=== PATIENT | male | born 1955 | race Two or more races ===

== ENCOUNTER 2018-01-28 00:26 | Inpatient (IN) | payer MEDICAID ==
[~2018-01-28] VITALS: Ht 180.3 cm; Wt 95.8 kg
[2018-01-28] VITALS (43 sets, daily range): BP systolic 96–185; BP diastolic 49–120
[2018-01-28] MEDS ORDERED: ALBUTEROL2.5 MG/3 M INH (00:29)
[2018-01-28] MEDS ORDERED: Terbutaline 1mg/ml Inj SUBQ ONE (00:45)
[2018-01-28] MEDS ORDERED: Solu-MEDROL 125mg Inj IVP ONE (00:45)
[2018-01-28] MEDS: Ipratropium 0.02% Inh Soln 2.5ml UD HHN SCH ×3 (00:57→01:36)
[2018-01-28] MEDS: Albuterol ud Inhalation HHN SCH ×5 (00:57→19:05)
[2018-01-28 01:10] LABS: HEMATOCRIT 45.5 % (42.0-52.0); HEMOGLOBIN 15.3 G/DL (14.2-18.0); MEAN CORPUSCULAR VOLUME 92 FL (80-99); PLATELET COUNT 327 K/UL (150-450); RED BLOOD COUNT 4.95 M/UL (4.70-6.10); RED CELL DISTRIBUTION WIDTH 12.5 % (11.6-14.8); WHITE BLOOD COUNT 15.4 K/UL (4.8-10.8)
[2018-01-28 01:16] LABS: ANION GAP 9 mmol/L (5-15); BLOOD UREA NITROGEN 20 mg/dL (7-18); CALCIUM 9.1 MG/DL (8.5-10.1); CARBON DIOXIDE 29 MMOL/L (21-32); CHLORIDE 106 MMOL/L (98-107); CREATININE 1.6 MG/DL (0.55-1.30); POTASSIUM 4.1 MMOL/L (3.5-5.1); SODIUM 143 MMOL/L (136-145)
[2018-01-28 01:29] LABS: ALANINE AMINOTRANSFERASE 68 U/L (12-78); ALBUMIN 4.6 G/DL (3.4-5.0); ALBUMIN/GLOBULIN RATIO 1.4 (1.0-2.7); ALKALINE PHOSPHATASE 97 U/L (46-116); ASPARTATE AMINO TRANSFERASE 75 U/L (15-37); BILIRUBIN,TOTAL 0.6 MG/DL (0.2-1.0); CKMB 6.1 NG/ML (0.0-3.6); CREATINE KINASE 529 U/L (26-308)
[2018-01-28] MEDS ORDERED: LORazepam 20 MG in NS 90 ML IV ONE (01:43)
[2018-01-28 01:46] LABS: BILIRUBIN, URINE NEGATIVE (NEGATIVE); COLOR,URINE PALE YELLOW; GLUCOSE, URINE (UA) 1+ (NEGATIVE); KETONES,URINE 1+ (NEGATIVE); LEUKOCYTE ESTERASE ,URINE 1+ (NEGATIVE); NITRITE,URINE NEGATIVE (NEGATIVE); PH,URINE 5 (4.5-8.0); PROTEIN,URINE 4+ (NEGATIVE); UROBILINOGEN,URINE 1 MG/DL (0.0-1.0)
[2018-01-28 01:54] LABS: APPEARANCE,URINE CLOUDY
[2018-01-28] MEDS ORDERED: Piperacillin/Tazobactam 3.375 GM in NS 110 ML IVPB ONE (02:15)
[2018-01-28] MEDS ORDERED: Azithromycin 500 MG in NS 275 ML IV ONE (02:15)
[2018-01-28] MEDS ORDERED: NS 1000ml 3,300 ML IVLG ONE (02:15)
[2018-01-28] MEDS ORDERED: Propofol 200mg/20ml IV ONE ×2 (02:45→06:18)
[2018-01-28] MEDS ORDERED: Terbutaline 1mg/ml Inj ONE (04:00)
--- NOTE | 2018-01-28 04:59 | Emergency Room Report ---
History of Present Illness General Chief Complaint: Dyspnea/Respdistress Source: EMS Present Illness HPI 62-year-old male presents to ED for evaluation. Per EMS patient in respiratory distress. Found at home. Cold and clammy. Apneic. O2 sats low. Improved with bagging. Possible aspiration. states patient has history of asthma and was "not feeling well today". EMS states patient did have pulses. Upon arrival patient unresponsive. Face is red. Very reduced breath sounds. No reported chest pain. No reported fevers or chills. No other aggravating relieving factors. No other associated symptoms Allergies: Coded Allergies: No Known Allergies (Unverified , 01/28/18) Patient History Past Medical History: asthma Past Surgical History: none Pertinent Family History: none Social History: Denies: smoking, alcohol use, drug use Immunizations: UTD Reviewed Nursing Documentation: PMH: Agreed; PSxH: Agreed Nursing Documentation-PM Past Medical History: No History, Except For Hx Asthma: Yes Review of Systems All Other Systems: limited Physical Exam Vital Signs Date Time Temp Pulse Resp B/P (MAP) Pulse Ox O2 Delivery O2 Flow Rate FiO2 01/28/18 00:26 116 24 181/113 100 Ambu-Bag 01/28/18 00:57 100 01/28/18 02:15 97.9 97.9 Sp02 EP Interpretation: reviewed, normal General Appearance: lethargic, obese, other - apneic Head: normocephalic Eyes: bilateral eye normal inspection, bilateral eye PERRL ENT: normal ENT inspection Neck: normal inspection Respiratory: decreased breath sounds, wheezing Cardiovascular #1: no edema, tachycardia Gastrointestinal: normal bowel sounds, non tender, soft, non-distended, no guarding, no rebound Rectal: deferred Genitourinary: no CVA tenderness Musculoskeletal: normal inspection Neurologic: other - unresponsive Psychiatric: other - unresponsive Skin: normal inspection Lymphatic: normal inspection Procedures Critical Care Time Critical Care Time i. I feel this is a highly complex case requiring extensive working including EKG/Rhythm strip, Xray/CT/US, Blood/urine lab work, repeat exams while in ED, and administration of strong opiates/narcotics for pain control, admission to hospital or close patient follow up. Total time: 30 min bedside evaluation and treatment excludes procedures (EKG). Reason for critical care: Respiratory distress, unresponsive. Possible complications: hypotension, hypertension, SD, shock, arrhythmias, metabolic acidosis, end organ damage, respiratory failure. Interventions: Intubation, labs, EKG, chest x-ray, IV fluids, ABG, antibiotics, sedation Course: Patient presenting in respiratory distress. GCS 3. Apneic. Patient intubated immediately on arrival. Very difficult bagging. Evidence of undigested food and oropharynx. NG tube placed. Deep suctioning provided. ABG shows significant hypercapnia. Significant acidosis and sepsis. Concerning for aspiration. Nebulizer treatments given. Broad-spectrum antibiotic given. Propofol given for sedation Consultations: nursing staff, EMS, family Performed by: Dr Barnes Tolerated well condition = critical j. because of unstable vital signs this patient had a condition that could potentially threaten life or limb. I feel this is a critical patient who required my full attention while patient was considered critical. Total Critical Care Time excluding procedures was greater than 35 minutes Medical Decision Making Diagnostic Impression: Primary Impression: Respiratory distress Additional Impressions: Hypercapnia Severe sepsis ER Course Hospital Course 62-year-old M presenting to ED with respiratory distress, apneic, lethargic Differential diagnoses include: Pneumonia, CHF exacerbation, pneumothorax, fluid overload Clinical course Patient placed on stretcher. On clinical research monitor. Per patient's respiratory status and GCS patient immediately intubated. During bagging very reduced breath sounds noted. Patient wheezing. I did observe undigested food and oropharynx. NG tube placed. Deep suctioning provided. Placed on ventilator. Nebulizer treatments started I ordered labs, IV fluids, EKG, chest x-ray, blood cultures, UA. Labs -leukocytosis noted, hemoglobin/hematocrit stable, electrolyte okay, lactate >4. troponins negative CXR - atelectasis/effusion LLL ABG shows significant hypercapnia. possible head injury - patient found down. CT head shows no acute process Broad-spectrum antibiotics given. Started on propofol drip for sedation. Case discussed with . Told of critical diagnosis Case discussed with Dr. Joe and he agreed to the patient to his service for further care and support I feel this is a highly complex case requiring extensive working including EKG/ Rhythm strip, Xray/CT/US, Blood/urine lab work, repeat exams while in ED, and administration of strong opiates/narcotics for pain control, admission to hospital or close patient follow up. Diagnosis - respiratory distress, hypercapnia, severe sepsis Patient admitted to ICU in critical condition Labs Test 01/28/18 00:25 01/28/18 00:33 01/28/18 01:28 01/28/18 03:33 Urine Color Pale yellow Urine Appearance Cloudy Urine pH 5 (4.5-8.0) Urine Specific [place] 1.025 (1.005-1.035) Urine Protein 4+ (NEGATIVE) Urine Glucose (UA) 1+ (NEGATIVE) Urine Ketones 1+ (NEGATIVE) Urine Occult Blood 5+ (NEGATIVE) Urine Nitrite Negative (NEGATIVE) Urine Bilirubin Negative (NEGATIVE) Urine Urobilinogen 1 MG/DL (0.0-1.0) Urine Leukocyte Esterase 1+ (NEGATIVE) Urine RBC 15-20 /HPF (0 - 0) Urine WBC 2-4 /HPF (0 - 0) Urine Squamous Epithelial Cells Few /LPF (NONE/OCC) Urine Amorphous Sediment Many /LPF (NONE) Urine Bacteria Many /HPF (NONE) Urine Coarse Granular Casts 5-10 /LPF (NONE) White Blood Count 15.4 K/UL (4.8-10.8) Red Blood Count 4.95 M/UL (4.70-6.10) Hemoglobin 15.3 G/DL (14.2-18.0) Hematocrit 45.5 % (42.0-52.0) Mean Corpuscular Volume 92 FL (80-99) Mean Corpuscular Hemoglobin 31.0 PG (27.0-31.0) Mean Corpuscular Hemoglobin Concent 33.7 G/DL (32.0-36.0) Red Cell Distribution Width 12.5 % (11.6-14.8) Platelet Count 327 K/UL (150-450) Mean Platelet Volume 7.2 FL (6.5-10.1) Neutrophils (%) (Auto) % (45.0-75.0) Lymphocytes (%) (Auto) % (20.0-45.0) Monocytes (%) (Auto) % (1.0-10.0) Eosinophils (%) (Auto) % (0.0-3.0) Basophils (%) (Auto) % (0.0-2.0) Sodium Level 143 MMOL/L (136-145) Potassium Level 4.1 MMOL/L (3.5-5.1) Chloride Level 106 MMOL/L (98-107) Carbon Dioxide Level 29 MMOL/L (21-32) Anion Gap 9 mmol/L (5-15) Blood Urea Nitrogen 20 mg/dL (7-18) Creatinine 1.6 MG/DL (0.55-1.30) Estimat Glomerular Filtration Rate 44.0 mL/min (>60) Glucose Level 196 MG/DL (74-106) Lactic Acid Level 4.60 mmol/L (0.66-2.22) 1.30 mmol/L (0.66-2.22) Calcium Level 9.1 MG/DL (8.5-10.1) Total Bilirubin 0.6 MG/DL (0.2-1.0) Aspartate Amino Transf (AST/SGOT) 75 U/L (15-37) Alanine Aminotransferase (ALT/SGPT) 68 U/L (12-78) Alkaline Phosphatase 97 U/L (46-116) Total Creatine Kinase 529 U/L (26-308) Creatine Kinase MB 6.1 NG/ML (0.0-3.6) Creatine Kinase MB Relative Index 1.1 Troponin I 0.000 ng/mL (0.000-0.056) Pro-B-Type Natriuretic Peptide 25 pg/mL (0-125) Total Protein 7.8 G/DL (6.4-8.2) Albumin 4.6 G/DL (3.4-5.0) Globulin 3.2 g/dL Albumin/Globulin Ratio 1.4 (1.0-2.7) Triglycerides Level 246 MG/DL (30-150) Arterial Blood pH 7.132 (7.350-7.450) Arterial Blood Partial Pressure CO2 81.4 mmHg (35.0-45.0) Arterial Blood Partial Pressure O2 226.7 mmHg (75.0-100.0) Arterial Blood HCO3 26.6 mmol/L (22.0-26.0) Arterial Blood Oxygen Saturation 98.8 % (92.0-98.0) Arterial Blood Base Excess -4.8 Alin Test Positive EKG Diagnostic Results Rate: tachycardiac Rhythm: NSR ST Segments: no acute changes ASA given to the pt in ED: No Rhythm Strip Diag. Results EP Interpretation: yes Rhythm: NSR, no PVC's, no ectopy Chest X-Ray Diagnostic Results Chest X-Ray Diagnostic Results : Chest X-Ray Ordered: Yes # of Views/Limited/Complete: 1 View Indication: Shortness of Breath EP Interpretation: Yes Interpretation: no pneumothorax, no acute cardiopulmonary disease, other - effusion/consolidation LLL Impression: Other - ?aspiration Electronically Signed by: Electronically signed by Cristofer Barnes MD CT/MRI/US Diagnostic Results CT/MRI/US Diagnostic Results : Imaging Test Ordered: CT Head Impression no acute process Last Vital Signs Date Time Temp Pulse Resp B/P (MAP) Pulse Ox O2 Delivery O2 Flow Rate FiO2 01/28/18 03:13 20 01/28/18 03:09 113 80 01/28/18 02:30 97.8 120/59 100 Mechanical Ventilator 97.8 Status: unchanged Disposition: ADMITTED INPATIENT Condition: Critical Referrals: [facility],REFERRING (PCP) Cristofer Barnes MD Jan 28, 2018 04:59
[2018-01-28] MEDS ORDERED: Albuterol ud Inhalation HHN PRN (09:00)
--- NOTE | 2018-01-28 10:21 | Diagnostic Imaging Report ---
Indication: Shortness of breath, postintubation Technique: One view of the chest Comparison: none Findings: There is an endotracheal tube in place. The relationship to the darling is not well visualized, but grossly appears to be in good position. There is a retrocardiac consolidation. The remainder the lungs and pleural spaces are clear. Impression: Satisfactory endotracheal intubation Retrocardiac consolidation
--- NOTE | 2018-01-28 10:38 | Pulmonolgy Critical Care Note ---
Critical Care - Asmt/Plan Problems: (1) Acute respiratory failure (2) Acute encephalopathy (3) Acute asthma exacerbation Respiratory: monitor respiratory rate, adjust FIO2, CXR Cardiac: continue to monitor HR/BP Renal: F/U I&O, check electrolytes Gastrointestinal: continue feedings/current rate Endocrine: monitor blood sugar, continue sliding scale insulin Hematologic: monitor H/H, transfuse if hgb<8.5 Neurologic: PRN Ativan, PRN Morphine, keep patient comfortable Prophylaxis: Protonix, Heparin Disposition: keep in ICU Time Spent (Minutes): 40 Notes Reviewed: casting director Discussed with: nurses, consultants, insurance case managerassurance services manager health care - Objective Last 24 Hour Vital Signs Date Time Temp Pulse Resp B/P (MAP) Pulse Ox O2 Delivery O2 Flow Rate FiO2 01/28/18 10:00 94 17 127/67 100 Mechanical Ventilator 70 01/28/18 09:30 90 16 109/70 100 Mechanical Ventilator 70 01/28/18 09:19 91 17 70 01/28/18 09:00 95 16 112/69 99 Mechanical Ventilator 70 01/28/18 08:30 95 16 96/58 99 Mechanical Ventilator 70 01/28/18 08:00 122 01/28/18 08:00 99 16 128/66 100 Mechanical Ventilator 70 01/28/18 07:30 125 28 136/116 99 Mechanical Ventilator 70 01/28/18 07:18 94 24 70 01/28/18 07:15 98.2 102 21 123/90 100 Mechanical Ventilator 70 98.2 01/28/18 07:15 97.7 98 18 137/86 100 Mechanical Ventilator 70 98.3 01/28/18 06:34 70 01/28/18 06:30 18 137/86 01/28/18 06:25 98.3 98 18 137/86 100 Mechanical Ventilator 70 98.3 01/28/18 05:32 98.3 101 20 151/71 100 Mechanical Ventilator 70 98.3 01/28/18 05:30 17 142/92 01/28/18 04:40 112 24 70 01/28/18 04:30 18 122/69 01/28/18 04:30 97.7 108 20 122/69 100 Mechanical Ventilator 80 97.7 01/28/18 04:00 97.7 108 20 156/74 100 Mechanical Ventilator 80 97.7 01/28/18 03:30 97.9 110 19 135/68 100 Mechanical Ventilator 100 97.9 01/28/18 03:30 19 135/68 01/28/18 03:15 97.9 113 19 134/49 100 Mechanical Ventilator 100 97.9 01/28/18 03:13 20 01/28/18 03:09 113 20 80 01/28/18 03:00 97.9 117 18 119/83 100 Mechanical Ventilator 100 97.9 01/28/18 02:45 97.8 117 19 134/49 100 Mechanical Ventilator 100 97.8 01/28/18 02:30 97.8 112 20 120/59 100 Mechanical Ventilator 100 97.8 01/28/18 02:30 18 120/59 01/28/18 02:15 97.9 111 20 138/65 100 Mechanical Ventilator 100 97.9 01/28/18 02:15 18 138/65 01/28/18 02:00 112 20 120/59 100 Mechanical Ventilator 100 01/28/18 01:50 106 16 100 Mechanical Ventilator 100 01/28/18 01:43 20 01/28/18 01:37 113 16 100 Mechanical Ventilator 100 01/28/18 01:30 97.9 113 20 167/120 100 Mechanical Ventilator 100 97.9 01/28/18 01:25 110 16 100 Mechanical Ventilator 100 01/28/18 01:14 100 01/28/18 01:14 113 14 185/104 100 Mechanical Ventilator 100 01/28/18 01:13 106 16 100 Mechanical Ventilator 100 01/28/18 01:13 113 16 Mechanical Ventilator 100 01/28/18 01:12 109 16 100 Mechanical Ventilator 100 01/28/18 01:08 104 16 Mechanical Ventilator 100 01/28/18 01:05 104 16 100 01/28/18 00:57 105 16 100 Mechanical Ventilator 100 01/28/18 00:26 116 24 181/113 100 Ambu-Bag Status: sedated Condition: critical HEENT: atraumatic Lungs: clear, rhonchi, wheezing Heart: HR/BP stable Abdomen: soft Extremities: no C/C/E, edema Decubiti: stage Critical Care - Subjective ROS Limited/Unobtainable: No ICU Day: 1 Interval Events: 62-year-old male with hx of COPD, morbid presents to ED or respiratory distress at home, cold and clammy. Improved with bagging. Upon arrival in ER patient was unresponsive. Face is red. Very reduced breath sounds. Pt was in respiratory failure and was intubated and started on Propofol drip and transferred to ICU. Condition: critical EKG Rhythm: Sinus Rhythm FI02: 70 Vent Support Breath Rate: 16 Vent Support Mode: AC Vent Tidal Volume: 550 Sputum Amount: Small PEEP: 5.0 PIP: 38 I&O: Intake and Output 01/27/18 01/28/18 19:00 07:00 Intake Total 1630.64 ml Output Total 900 ml Balance 730.64 ml Intake IV Total 1630.64 ml Output Urine Total 700 ml Gastric Drainage Total 200 ml CXR: JERRELL ET-Tube: 7.5 ET Position: 24 Labs: Laboratory Tests Test 01/28/18 00:25 01/28/18 00:33 01/28/18 01:28 01/28/18 03:33 Urine Color Pale yellow Urine Appearance Cloudy Urine pH 5 (4.5-8.0) Urine Specific [place] 1.025 (1.005-1.035) Urine Protein 4+ (NEGATIVE) H Urine Glucose (UA) 1+ (NEGATIVE) H Urine Ketones 1+ (NEGATIVE) H Urine Occult Blood 5+ (NEGATIVE) H Urine Nitrite Negative (NEGATIVE) Urine Bilirubin Negative (NEGATIVE) Urine Urobilinogen 1 MG/DL (0.0-1.0) H Urine Leukocyte Esterase 1+ (NEGATIVE) H Urine RBC 15-20 /HPF (0 - 0) H Urine WBC 2-4 /HPF (0 - 0) Urine Squamous Epithelial Cells Few /LPF (NONE/OCC) Urine Amorphous Sediment Many /LPF (NONE) H Urine Bacteria Many /HPF (NONE) H Urine Coarse Granular Casts 5-10 /LPF (NONE) H Urine Opiates Screen Negative (NEGATIVE) Urine Barbiturates Screen Negative (NEGATIVE) Phencyclidine (PCP) Screen Negative (NEGATIVE) Urine Amphetamines Screen Negative (NEGATIVE) Urine Benzodiazepines Screen Negative (NEGATIVE) Urine Cocaine Screen Negative (NEGATIVE) Urine Marijuana (THC) Screen Negative (NEGATIVE) White Blood Count 15.4 K/UL (4.8-10.8) H Red Blood Count 4.95 M/UL (4.70-6.10) Hemoglobin 15.3 G/DL (14.2-18.0) Hematocrit 45.5 % (42.0-52.0) Mean Corpuscular Volume 92 FL (80-99) Mean Corpuscular Hemoglobin 31.0 PG (27.0-31.0) Mean Corpuscular Hemoglobin Concent 33.7 G/DL (32.0-36.0) Red Cell Distribution Width 12.5 % (11.6-14.8) Platelet Count 327 K/UL (150-450) Mean Platelet Volume 7.2 FL (6.5-10.1) Neutrophils (%) (Auto) % (45.0-75.0) Lymphocytes (%) (Auto) % (20.0-45.0) Monocytes (%) (Auto) % (1.0-10.0) Eosinophils (%) (Auto) % (0.0-3.0) Basophils (%) (Auto) % (0.0-2.0) Sodium Level 143 MMOL/L (136-145) Potassium Level 4.1 MMOL/L (3.5-5.1) Chloride Level 106 MMOL/L (98-107) Carbon Dioxide Level 29 MMOL/L (21-32) Anion Gap 9 mmol/L (5-15) Blood Urea Nitrogen 20 mg/dL (7-18) H Creatinine 1.6 MG/DL (0.55-1.30) H Estimat Glomerular Filtration Rate 44.0 mL/min (>60) Glucose Level 196 MG/DL (74-106) H Lactic Acid Level 4.60 mmol/L (0.66-2.22) H 1.30 mmol/L (0.66-2.22) Calcium Level 9.1 MG/DL (8.5-10.1) Total Bilirubin 0.6 MG/DL (0.2-1.0) Aspartate Amino Transf (AST/SGOT) 75 U/L (15-37) H Alanine Aminotransferase (ALT/SGPT) 68 U/L (12-78) Alkaline Phosphatase 97 U/L (46-116) Total Creatine Kinase 529 U/L (26-308) H Creatine Kinase MB 6.1 NG/ML (0.0-3.6) H Creatine Kinase MB Relative Index 1.1 Troponin I 0.000 ng/mL (0.000-0.056) Pro-B-Type Natriuretic Peptide 25 pg/mL (0-125) Total Protein 7.8 G/DL (6.4-8.2) Albumin 4.6 G/DL (3.4-5.0) Globulin 3.2 g/dL Albumin/Globulin Ratio 1.4 (1.0-2.7) Triglycerides Level 246 MG/DL (30-150) H Arterial Blood pH 7.132 (7.350-7.450) Arterial Blood Partial Pressure CO2 81.4 mmHg (35.0-45.0) *H Arterial Blood Partial Pressure O2 226.7 mmHg (75.0-100.0) H Arterial Blood HCO3 26.6 mmol/L (22.0-26.0) H Arterial Blood Oxygen Saturation 98.8 % (92.0-98.0) H Arterial Blood Base Excess -4.8 Alin Test Positive Test 01/28/18 09:35 Arterial Blood pH 7.298 (7.350-7.450) Arterial Blood Partial Pressure CO2 48.7 mmHg (35.0-45.0) H Arterial Blood Partial Pressure O2 143.5 mmHg (75.0-100.0) H Arterial Blood HCO3 23.3 mmol/L (22.0-26.0) Arterial Blood Oxygen Saturation 98.8 % (92.0-98.0) H Arterial Blood Base Excess -3.5 Alin Test Positive Ahsan Wu MD Jan 28, 2018 10:38
[2018-01-28] MEDS ORDERED: Albuterol/Ipratropium 3ml neb HHN PRN ×2 (11:00)
[2018-01-28] MEDS ORDERED: Morphine Sulfate 4mg/ml Inj IVP PRN (11:00)
[2018-01-28] MEDS ORDERED: Nitroglycerin Subl 0.4mg tab SL PRN (11:00)
--- NOTE | 2018-01-28 11:40 | Diagnostic Imaging Report ---
Indications: 6 altered mental status Technique: Spiral acquisitions obtained through the brain. Angled axial and coronal 5 x 5 mm slices were reconstructed. Total dose length product 1407.76 mGycm. CTDI vol(s) 70.38 mGy. Dose reduction achieved using automated exposure control Comparison: None. Findings: There is fairly severe image degradation due to motion artifact. Significant pathology could be obscured. No gross acute intracranial hemorrhage or edema. And definite mass effect or midline shift. Visualized orbits are grossly unremarkable. There is evidence of bilateral maxillary and ethmoid sinus mucosal disease The calvarium is grossly intact. Impression: . Limited exam due to motion artifact, significant pathology could be missed No gross acute intracranial bleed or mass effect The CT scanner at [facility] is accredited by the [employer] and the scans are performed using protocols designed to limit radiation exposure to as low as reasonably achievable to attain images of sufficient resolution adequate for diagnostic evaluation.
[2018-01-28] MEDS ORDERED: Etomidate 40mg/20ml Inj IV ONE (12:05)
[2018-01-28] MEDS ORDERED: Zemuron 50mg/5ml Inj IV ONE (12:05)
[2018-01-28] MEDS: Solu-MEDROL 125mg Inj IV SCH ×2 (12:25→17:31)
[2018-01-28] MEDS: LORazepam Inj 2mg/ml 1ml IV PRN ×2 (12:25→17:31)
[2018-01-28] MEDS: Piperacillin/Tazobactam 3.375 GM in D5W 110 ML IVPB SCH ×2 (12:26→21:03)
[2018-01-28] MEDS: D5 1/2NS 1,000 ML IV SCH (12:29)
[2018-01-28] MEDS: NovoLOG Insulin Flexpen SUBQ SCH ×3 (12:34→21:19)
[2018-01-28] MEDS ORDERED: Piperacillin/Tazobactam 2.25 GM in D5W 55 ML IV SCH (14:00)
--- NOTE | 2018-01-28 14:43 | Cardiology Report ---
APPROVED REPORT EKG Measurement Heart [id number] Sinus tachycardia with premature atrial complexes Otherwise normal ECG
--- NOTE | 2018-01-28 15:46 | Consultation ---
Consult Note Consult Note [id number] Mike Domingo MD Jan 28, 2018 15:46
--- NOTE | 2018-01-28 16:48 | History & Physical ---
History and Physical History & Physicial Dictated for Int Med-Dr Joe no. [id number]. APRIL HEATH Jan 28, 2018 16:48
--- NOTE | 2018-01-28 17:01 | Diagnostic Imaging Report ---
Indication: Post nasogastric tube placement Technique: Supine view of the upper abdomen Comparison: none Findings: There is a nasogastric tube in place, tip projected at the level of the gastric fundus, but the proximal port probably at the level of the gastroesophageal junction. The bowel gas pattern is grossly unremarkable. Infiltrates are seen at the left lung base. Impression: Slightly high position of nasogastric tube. Advancement recommended Evidence of left lower lobe pneumonia
[2018-01-28] MEDS: Midazolam/D5W 100ml 100 ML IVPB PRN ×2 (18:00→23:14)
[2018-01-28] MEDS: Heparin 5000 units/ml inj SUBQ SCH (21:18)
[2018-01-29] VITALS (47 sets, daily range): BP systolic 84–144; BP diastolic 46–102
[2018-01-29] MEDS: Solu-MEDROL 125mg Inj IV SCH ×4 (00:27→16:56)
[2018-01-29] MEDS: LORazepam Inj 2mg/ml 1ml IV PRN (00:31)
[2018-01-29] MEDS: Morphine Sulfate 4mg/ml Inj IVP PRN (01:10)
[2018-01-29] MEDS: Albuterol ud Inhalation HHN SCH ×4 (01:20→19:23)
--- NOTE | 2018-01-29 03:00 | History and Physical Report ---
DATE OF ADMISSION: 01/28/2018 CHIEF COMPLAINT: The patient is a 62-year-old male, presents with chief complaint of respiratory distress. HISTORY OF PRESENT ILLNESS: The patient is currently intubated in the intensive care unit. History and physical is obtained via telephone from the patient's , Julius. According to patient's , he had been having knee pain secondary to torn meniscus. The patient was taking Naprosyn for knee pain. The patient began to experience abdominal pain approximately two days previously. The patient had some on and off diarrhea. On 01/27/2018 in the evening, the patient went to the restroom. The patient was having trouble breathing. The patient's went to get his nebulizer machine. By the time the returned, the patient had fallen off of the toilet. The patient was unresponsive. EMS was called. The patient was intubated in the field. The patient was transferred to [place] emergency room. The patient is admitted with respiratory failure to rule out aspiration pneumonia. PAST MEDICAL HISTORY: Significant for asthma, status post intubation in 2014. PAST SURGICAL HISTORY: Denies. CURRENT MEDICATIONS: Albuterol nebulized q.4 h. p.r.n. ALLERGIES: No known drug allergies. SOCIAL HISTORY: The patient is . The patient denies tobacco use. The patient denies alcohol use. REVIEW OF SYSTEMS: Unable to assess, secondary to the patient's mental status. PHYSICAL EXAMINATION: GENERAL: The patient is a well-developed and well-nourished male, who is intubated and sedated. VITAL SIGNS: Temperature 98.3 degrees, respirations 20, pulse tachycardic at 101, and blood pressure 151/70. HEENT: Eyes, pupils are equal and responsive to light and accommodation. Extraocular movements are intact. NECK: Supple without lymphadenopathy. CHEST: Few scattered wheezes bilaterally. Otherwise, without wheezes or rales. CARDIOVASCULAR: Tachycardic, regular rhythm. S1 and S2 normal without murmurs, rubs, or gallops. ABDOMEN: Soft, nontender, nondistended. Positive bowel sounds. No evidence of hepatosplenomegaly. Currently, no rebound or guarding noted. EXTREMITIES: Negative for clubbing, cyanosis, or edema. NEUROLOGIC: Cranial nerves II through XII are grossly intact without focal deficits. LABORATORY AND DIAGNOSTIC STUDIES: WBC 15.4, hemoglobin 15.3, hematocrit 45.5 and platelets 327,000. Sodium 143, potassium 4.1, chloride 106, CO2 29, BUN 20, creatinine 1.6, and glucose 196. Lactic acid elevated at 4.6. Troponin negative at 0.0. Chest x-ray revealed a retrocardiac consolidation. A CT scan of the head was reported within normal limits. ASSESSMENT: This is a 62-year-old male 1. Respiratory failure. 2. Pneumonia. 3. Asthma. 4. Abdominal pain. TREATMENT: 1. Respiratory failure/pneumonia. A Pulmonary consultation has been obtained with Dr. Ahsan Wu. The patient has been started empirically on Zosyn. We will follow recommendations of Infectious Disease and Pulmonary. 2. Leukocytosis, probably secondary to pneumonia as above. 3. Asthma. The patient is currently receiving DuoNebs and intravenous Solu-Medrol. We will follow recommendation of Pulmonary as above. 4. Abdominal pain. Occult blood stools pending. Mike Allen M.D. DR: MIHAELA JOB#: [id number] CC:
--- NOTE | 2018-01-29 03:15 | Consultation ---
DATE OF CONSULTATION: 01/28/2018 INFECTIOUS DISEASE CONSULTATION CONSULTING PHYSICIAN: Mike Domingo M.D. REQUESTING PHYSICIANS: Fam Joe M.D. and Ahsan Wu M.D. REASON FOR CONSULTATION: Evaluation of the patient for sepsis, possible aspiration pneumonia, antibiotic management. HISTORY OF PRESENT ILLNESS: The patient is a 62-year-old male with multiple medical problems as listed below, who apparently has been at home after the patient felt some abdominal discomfort, went to the bathroom and family called 911 and at the time they arrived, the patient was found to be blue and unresponsive. The patient had to be intubated and currently is in the ICU. According to nurse at the time of admission, there was small amount of food material present in the airways. The patient has been started on ventilator for aspiration pneumonia. Infectious Disease consultation has been requested for further evaluation of the patient's antibiotic management. PAST MEDICAL HISTORY: Asthma. MEDICATIONS: Zosyn and Solu-Medrol. ALLERGIES: No known drug allergies. SOCIAL HISTORY: Unremarkable. FAMILY HISTORY: Not contributory. REVIEW OF SYSTEMS: Unobtainable. PHYSICAL EXAMINATION: VITAL SIGNS: Temperature 98 degrees, blood pressure 107/61, pulse 86, and respiratory rate 18. HEENT: No pale conjunctivae. No icterus. NECK: No lymphadenopathy. CHEST: Clear. Coarse breathing sounds. HEART: S1 and S2. ABDOMEN: Soft and obese. EXTREMITIES: No cyanosis at this time. NEUROLOGIC: Obtunded. LABORATORY AND DIAGNOSTIC DATA: White blood cells 15, hemoglobin 15, and platelets 227. BUN 20 and creatinine 1.6. ALT and AST are unremarkable. Chest x-ray consolidation. Head CT, unremarkable. ASSESSMENT: The patient is a 62-year-old male with: 1. Probable aspiration pneumonia. 2. Asthma. 3. Ventilator-dependent respiratory failure. 4. Leukocytosis. PLAN: 1. We will continue the patient on IV Zosyn day #1. 2. Monitor CBC and BMP. 3. Monitor cultures (blood, urine, and sputum). 4. Monitor chest x-ray. 5. If the patient does not improve clinically, may benefit from CT scan of the abdomen. 6. Based on the patient's clinical course and labs, we will do further recommendation. Thank you, Dr. Wu , for allowing me to participate in the care of this patient. I will follow the patient with you during this hospitalization. Mike Domingo M.D. DR: ALESIA JOB#: [id number] CC:
[2018-01-29] MEDS: Midazolam/D5W 100ml 100 ML IVPB PRN ×3 (04:19→19:39)
[2018-01-29] MEDS: Piperacillin/Tazobactam 3.375 GM in D5W 110 ML IVPB SCH ×3 (04:24→19:46)
[2018-01-29] MEDS ORDERED: Lidocaine 1% Plain 30 ml INJ ONE (04:30)
[2018-01-29 05:09] LABS: HEMATOCRIT 39.1 % (42.0-52.0); HEMOGLOBIN 13.8 G/DL (14.2-18.0); MEAN CORPUSCULAR VOLUME 89 FL (80-99); PLATELET COUNT 250 K/UL (150-450); RED CELL DISTRIBUTION WIDTH 12.4 % (11.6-14.8); WHITE BLOOD COUNT 12.6 K/UL (4.8-10.8)
[2018-01-29 05:48] LABS: ALANINE AMINOTRANSFERASE 55 U/L (12-78); ALBUMIN 3.4 G/DL (3.4-5.0); ALBUMIN/GLOBULIN RATIO 1.2 (1.0-2.7); ALKALINE PHOSPHATASE 57 U/L (46-116); ANION GAP 4 mmol/L (5-15); ASPARTATE AMINO TRANSFERASE 32 U/L (15-37); BILIRUBIN,TOTAL 0.6 MG/DL (0.2-1.0); BLOOD UREA NITROGEN 20 mg/dL (7-18); CALCIUM 8.6 MG/DL (8.5-10.1); CARBON DIOXIDE 28 MMOL/L (21-32); CHLORIDE 106 MMOL/L (98-107); CREATININE 1.1 MG/DL (0.55-1.30); PHOSPHORUS 2.2 MG/DL (2.5-4.9); POTASSIUM 4.2 MMOL/L (3.5-5.1); SODIUM 138 MMOL/L (136-145)
[2018-01-29] MEDS: NovoLOG Insulin Flexpen SUBQ SCH ×4 (06:00→20:57)
--- NOTE | 2018-01-29 09:25 | Pulmonolgy Critical Care Note ---
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 - Objective Last 24 Hour Vital Signs Date Time Temp Pulse Resp B/P (MAP) Pulse Ox O2 Delivery O2 Flow Rate FiO2 01/29/18 09:00 97 01/29/18 08:00 35 01/29/18 07:00 97 16 89/46 96 Mechanical Ventilator 35 01/29/18 06:56 85 16 98 Mechanical Ventilator 35 01/29/18 06:49 85 16 35 01/29/18 06:48 83 16 98 Mechanical Ventilator 35 01/29/18 06:30 85 16 93/53 98 Mechanical Ventilator 35 01/29/18 06:00 16 01/29/18 06:00 86 16 92/53 99 Mechanical Ventilator 35 01/29/18 05:30 88 16 89/50 99 Mechanical Ventilator 35 01/29/18 05:11 88 16 35 01/29/18 05:00 87 16 109/60 99 Mechanical Ventilator 35 01/29/18 05:00 16 01/29/18 04:30 89 16 97/56 98 Mechanical Ventilator 35 01/29/18 04:19 16 01/29/18 04:00 92 01/29/18 04:00 98.0 92 16 96/57 98 Mechanical Ventilator 35 98.0 01/29/18 04:00 35 01/29/18 04:00 16 01/29/18 03:30 93 16 103/60 98 Mechanical Ventilator 35 01/29/18 03:26 93 16 35 01/29/18 03:00 95 16 103/63 98 Mechanical Ventilator 35 01/29/18 03:00 16 01/29/18 02:30 98 16 90/52 97 Mechanical Ventilator 35 01/29/18 02:00 103 16 90/52 97 Mechanical Ventilator 35 01/29/18 02:00 16 01/29/18 01:33 107 24 100 Mechanical Ventilator 35 01/29/18 01:30 106 17 84/48 96 Mechanical Ventilator 35 01/29/18 01:20 115 21 35 01/29/18 01:20 115 21 96 Mechanical Ventilator 35 01/29/18 01:00 23 01/29/18 01:00 115 23 122/74 96 Mechanical Ventilator 35 01/29/18 00:30 103 23 144/102 99 Mechanical Ventilator 35 01/29/18 00:00 35 01/29/18 00:00 103 01/29/18 00:00 23 01/29/18 00:00 97.5 124 23 110/68 98 Mechanical Ventilator 35 97.5 01/28/18 23:30 90 16 115/68 98 Mechanical Ventilator 35 01/28/18 23:14 16 01/28/18 23:00 16 01/28/18 23:00 89 16 114/74 96 Mechanical Ventilator 35 01/28/18 22:53 88 16 35 01/28/18 22:30 91 16 113/66 97 Mechanical Ventilator 35 01/28/18 22:00 91 16 110/68 97 Mechanical Ventilator 35 01/28/18 22:00 16 01/28/18 21:30 93 16 108/62 98 Mechanical Ventilator 35 01/28/18 21:29 93 16 35 01/28/18 21:00 93 16 117/69 98 Mechanical Ventilator 35 01/28/18 21:00 16 01/28/18 20:30 96 17 123/71 98 Mechanical Ventilator 35 01/28/18 20:00 99.0 98 17 126/65 97 Mechanical Ventilator 35 99.0 01/28/18 20:00 100 01/28/18 20:00 17 01/28/18 20:00 35 01/28/18 19:30 105 18 105/56 96 Mechanical Ventilator 35 01/28/18 19:15 102 16 101/63 96 Mechanical Ventilator 35 01/28/18 19:15 99 23 100 Mechanical Ventilator 35 01/28/18 19:05 104 17 98 Mechanical Ventilator 35 01/28/18 19:05 104 17 35 01/28/18 19:00 103 17 110/63 96 Mechanical Ventilator 35 01/28/18 19:00 19 01/28/18 18:45 103 18 117/68 96 Mechanical Ventilator 35 01/28/18 18:30 103 18 108/72 96 Mechanical Ventilator 35 01/28/18 18:15 104 19 136/76 96 Mechanical Ventilator 35 01/28/18 18:00 104 18 156/76 96 Mechanical Ventilator 35 01/28/18 18:00 23 01/28/18 17:00 109 21 122/67 97 Mechanical Ventilator 35 01/28/18 16:54 96 19 35 01/28/18 16:00 35 01/28/18 16:00 94 01/28/18 16:00 99.3 96 19 109/66 97 Mechanical Ventilator 35 99.3 01/28/18 15:06 99 21 35 01/28/18 15:00 97 21 107/61 97 Mechanical Ventilator 35 01/28/18 14:00 96 21 108/63 97 Mechanical Ventilator 35 01/28/18 13:12 101 24 100 Mechanical Ventilator 35 01/28/18 13:02 99 24 100 Mechanical Ventilator 35 01/28/18 13:00 97 21 112/62 97 Mechanical Ventilator 35 01/28/18 12:56 101 24 50 01/28/18 12:00 102 01/28/18 12:00 50 01/28/18 12:00 98.6 102 22 128/66 99 Mechanical Ventilator 35 98.6 01/28/18 11:00 88 17 124/65 100 Mechanical Ventilator 50 01/28/18 10:53 81 16 50 01/28/18 10:30 88 16 112/63 100 Mechanical Ventilator 50 01/28/18 10:00 94 17 127/67 100 Mechanical Ventilator 50 01/28/18 09:46 50 01/28/18 09:30 90 16 109/70 100 Mechanical Ventilator 70 Status: sedated Condition: critical Neck: full ROM Lungs: clear Heart: HR/BP stable Abdomen: soft, active bowel sounds Extremities: no C/C/E, edema Decubiti: location Micro: Microbiology Date/Time Source Procedure Growth Status 01/28/18 02:35 Blood Blood Culture - Preliminary NO GROWTH AFTER 24 HOURS Resulted 01/28/18 02:20 Blood Blood Culture - Preliminary NO GROWTH AFTER 24 HOURS Resulted 01/28/18 11:11 Sputum Gram Stain - Final Resulted 01/28/18 11:11 Sputum Sputum Culture - Preliminary NORMAL UPPER RESPIRATORY LAUREN AT 24 ... Resulted 01/28/18 00:25 Urine,Clean Catch Urine Culture - Preliminary NO GROWTH Resulted Accucheck: 184 Critical Care - Subjective ROS Limited/Unobtainable: No ICU Day: 2 Intubation Day: 2 Condition: critical EKG Rhythm: Sinus Rhythm FI02: 35 Vent Support Breath Rate: 16 Vent Support Mode: AC Vent Tidal Volume: 600 Sputum Amount: Moderate PEEP: 5.0 PIP: 45 Tube Feeding Amount: 20 I&O: Intake and Output 01/28/18 01/29/18 19:00 07:00 Intake Total 496.0 ml 1175.0 ml Output Total 1170 ml 1290 ml Balance -674.0 ml -115.0 ml Intake IV Total 456.0 ml 935.0 ml Tube Feeding 240 ml Other 40 ml Output Urine Total 1170 ml 1290 ml CXR: bibasilar infiltrate ET-Tube: 7.5 ET Position: 24 Labs: Laboratory Tests Test 01/28/18 09:35 01/28/18 12:45 01/29/18 04:35 01/29/18 06:45 Arterial Blood pH 7.298 (7.350-7.450) 7.310 (7.350-7.450) 7.410 (7.350-7.450) Arterial Blood Partial Pressure CO2 48.7 mmHg (35.0-45.0) H 45.2 mmHg (35.0-45.0) H 40.7 mmHg (35.0-45.0) Arterial Blood Partial Pressure O2 143.5 mmHg (75.0-100.0) H 114.7 mmHg (75.0-100.0) H 82.5 mmHg (75.0-100.0) Arterial Blood HCO3 23.3 mmol/L (22.0-26.0) 22.2 mmol/L (22.0-26.0) 25.4 mmol/L (22.0-26.0) Arterial Blood Oxygen Saturation 98.8 % (92.0-98.0) H 98.0 % (92.0-98.0) 96.4 % (92.0-98.0) Arterial Blood Base Excess -3.5 -4.1 0.8 Alin Test Positive Positive Positive White Blood Count 12.6 K/UL (4.8-10.8) H Red Blood Count 4.40 M/UL (4.70-6.10) L Hemoglobin 13.8 G/DL (14.2-18.0) L Hematocrit 39.1 % (42.0-52.0) L Mean Corpuscular Volume 89 FL (80-99) Mean Corpuscular Hemoglobin 31.4 PG (27.0-31.0) H Mean Corpuscular Hemoglobin Concent 35.3 G/DL (32.0-36.0) Red Cell Distribution Width 12.4 % (11.6-14.8) Platelet Count 250 K/UL (150-450) Mean Platelet Volume 7.9 FL (6.5-10.1) Neutrophils (%) (Auto) % (45.0-75.0) Lymphocytes (%) (Auto) % (20.0-45.0) Monocytes (%) (Auto) % (1.0-10.0) Eosinophils (%) (Auto) % (0.0-3.0) Basophils (%) (Auto) % (0.0-2.0) Differential Total Cells Counted 100 Neutrophils % (Manual) 85 % (45-75) H Lymphocytes % (Manual) 13 % (20-45) L Monocytes % (Manual) 2 % (1-10) Eosinophils % (Manual) 0 % (0-3) Basophils % (Manual) 0 % (0-2) Band Neutrophils 0 % (0-8) Platelet Estimate Adequate Platelet Morphology Normal Red Blood Cell Morphology Normal Erythrocyte Sedimentation Rate 7 MM/HR (0-20) Sodium Level 138 MMOL/L (136-145) Potassium Level 4.2 MMOL/L (3.5-5.1) Chloride Level 106 MMOL/L (98-107) Carbon Dioxide Level 28 MMOL/L (21-32) Anion Gap 4 mmol/L (5-15) L Blood Urea Nitrogen 20 mg/dL (7-18) H Creatinine 1.1 MG/DL (0.55-1.30) Estimat Glomerular Filtration Rate > 60 mL/min (>60) Glucose Level 184 MG/DL (74-106) H Calcium Level 8.6 MG/DL (8.5-10.1) Phosphorus Level 2.2 MG/DL (2.5-4.9) L Magnesium Level 2.0 MG/DL (1.8-2.4) Total Bilirubin 0.6 MG/DL (0.2-1.0) Aspartate Amino Transf (AST/SGOT) 32 U/L (15-37) Alanine Aminotransferase (ALT/SGPT) 55 U/L (12-78) Alkaline Phosphatase 57 U/L (46-116) C-Reactive Protein, Quantitative 6.9 mg/dL (0.00-0.90) H Total Protein 6.3 G/DL (6.4-8.2) L Albumin 3.4 G/DL (3.4-5.0) Globulin 2.9 g/dL Albumin/Globulin Ratio 1.2 (1.0-2.7) Ahsan Wu MD Jan 29, 2018 09:25
[2018-01-29] MEDS: D5 1/2NS 1,000 ML IV SCH (09:41)
[2018-01-29] MEDS: Pantoprazole Inj IV SCH (09:41)
[2018-01-29] MEDS: Heparin 5000 units/ml inj SUBQ SCH ×2 (09:43→20:56)
--- NOTE | 2018-01-29 10:13 | Diagnostic Imaging Report ---
Indication: NG tube placement Technique: XRAY Abdomen 1v Comparison: 01/28/2018, 13:24 FINDINGS/IMPRESSION: There has been interval advancement of the enteric tube, tip now in the region of the distal stomach/gastric antrum.. Additional findings without significant interval change from the prior exam.
--- NOTE | 2018-01-29 10:16 | Diagnostic Imaging Report ---
Indication: Dyspnea Technique: XRAY Chest 1v Comparison: 01/28/2018 Findings: Endotracheal tube unchanged in position. Heart size and mediastinal contours are stable. Lung volumes are low. Persistent asymmetric hazy opacity in the left base. No appreciable large pleural effusion. No definite pneumothorax. Osseous structures are stable. Impression: Limited exam with low lung volumes. Hazy asymmetric opacity in the left base unchanged. There is patchy right basilar opacities/atelectasis. Follow-up exam recommended.
[2018-01-29] MEDS ORDERED: Sodium Phosphate 30 MM in NS 275 ML IV ONE (12:45)
[2018-01-29] MEDS ORDERED: D5 1/2NS 1000ml IV ONE ×2 (14:55→22:47)
--- NOTE | 2018-01-29 15:51 | Internal Med Progress Note ---
Subjective Date of Service: Jan 29, 2018 Physician Name April Heath Attending Physician Fam Joe MD Current Medications Medications (Trade) Dose Ordered Sig/Shereen Route PRN Reason Start Time Stop Time Status Last Admin Dose Admin Albuterol Sulfate (Proventil) 2.5 mg Q4H PRN HHN Shortness of Breath 01/28/18 09:00 02/02/18 08:59 01/28/18 13:01 Albuterol Sulfate (Proventil) 2.5 mg Q6HRT HHN 01/28/18 13:00 02/02/18 12:59 01/29/18 13:25 Albuterol/ Ipratropium (Albuterol/ Ipratropium) 3 ml Q4H PRN HHN Shortness of Breath 01/28/18 11:00 02/02/18 10:59 Chlorhexidine Gluconate (Dari-Hex 2%) 1 applic DAILY@2000 TOPIC 01/29/18 20:00 02/28/18 19:59 Dextrose (Dextrose 50%) 25 ml STAT PRN IV Hypoglycemia 01/28/18 10:45 02/27/18 10:44 Dextrose/Sodium Chloride 1,000 ml @ 50 mls/hr Q20H IV 01/28/18 11:00 02/27/18 10:59 01/29/18 09:41 Heparin Sodium (Porcine) (Heparin 5000 units/ml) 5,000 units EVERY 12 HOURS SUBQ 01/28/18 21:00 02/27/18 20:59 01/29/18 09:43 Insulin Aspart (NovoLOG) BEFORE MEALS AND HS SUBQ 01/28/18 11:30 02/27/18 11:29 01/29/18 11:30 Lorazepam (Ativan 2mg/ml 1ml) 2 mg Q4H PRN IV For Anxiety 01/28/18 11:00 02/04/18 10:59 01/29/18 00:31 Methylprednisolone Sodium Succinate (Solu-MEDROL) 60 mg EVERY 6 HOURS IV 01/28/18 12:00 02/27/18 11:59 01/29/18 11:26 Midazolam HCl 100 ml @ 0 mls/hr Q24H PRN IVPB To Patient Comfort 01/28/18 11:00 02/04/18 10:59 01/29/18 11:24 Morphine Sulfate (Morphine Sulfate) 2 mg Q4H PRN IVP Moderate Pain (Pain Scale 4-6) 01/28/18 11:30 02/04/18 10:59 Morphine Sulfate (Morphine Sulfate) 4 mg Q4H PRN IVP Severe Pain (Pain Scale 7-10) 01/28/18 10:30 02/04/18 10:29 01/29/18 01:10 Nitroglycerin (Ntg) 0.4 mg Q5M X 3 DOSES PRN SL Prn Chest Pain 01/28/18 11:00 02/27/18 10:59 Ondansetron HCl (Zofran) 4 mg Q6H PRN IVP Nausea & Vomiting 01/28/18 11:00 02/27/18 10:59 Pantoprazole (Protonix) 40 mg DAILY IV 01/29/18 09:00 02/28/18 08:59 01/29/18 09:41 Piperacillin Sod/ Tazobactam Sod 3.375 gm/Dextrose 110 ml @ 27.5 mls/hr Q8H IVPB 01/28/18 12:00 02/04/18 11:59 01/29/18 11:26 Sodium Phosphate 30 mm/Sodium Chloride 285 ml @ 47.5 mls/hr ONCE ONCE IV 01/29/18 12:45 01/29/18 18:44 01/29/18 13:21 Allergies: Coded Allergies: No Known Allergies (Unverified , 01/28/18) ROS Limited/Unobtainable: Yes Subjective 62 YO M admitted with Respiratory failure. Now pneumonia. Intubated and sedated. Cover for Int Eric-Dr Joe. ICU Objective Last Vital Signs Date Time Temp Pulse Resp B/P (MAP) Pulse Ox O2 Delivery O2 Flow Rate FiO2 01/29/18 15:00 97 15 107/64 99 Mechanical Ventilator 35 01/29/18 12:00 98.9 98.9 General Appearance: WD/WN, moderate distress EENT: PERRL/EOMI, normal ENT inspection Neck: non-tender, normal alignment, supple Cardiovascular: normal peripheral pulses, normal rate, regular rhythm, no gallop/murmur, no JVD Respiratory/Chest: respiratory distress, crackles/rales, rhonchi - bilaterally , expiratory wheezing Abdomen: normal bowel sounds, non tender, soft, no organomegaly, no mass Neurologic: painter barrel II-XII grossly normal Skin: normal pigmentation, warm/dry Laboratory Tests Test 01/29/18 04:35 01/29/18 06:45 White Blood Count 12.6 K/UL (4.8-10.8) H Red Blood Count 4.40 M/UL (4.70-6.10) L Hemoglobin 13.8 G/DL (14.2-18.0) L Hematocrit 39.1 % (42.0-52.0) L Mean Corpuscular Volume 89 FL (80-99) Mean Corpuscular Hemoglobin 31.4 PG (27.0-31.0) H Mean Corpuscular Hemoglobin Concent 35.3 G/DL (32.0-36.0) Red Cell Distribution Width 12.4 % (11.6-14.8) Platelet Count 250 K/UL (150-450) Mean Platelet Volume 7.9 FL (6.5-10.1) Neutrophils (%) (Auto) % (45.0-75.0) Lymphocytes (%) (Auto) % (20.0-45.0) Monocytes (%) (Auto) % (1.0-10.0) Eosinophils (%) (Auto) % (0.0-3.0) Basophils (%) (Auto) % (0.0-2.0) Differential Total Cells Counted 100 Neutrophils % (Manual) 85 % (45-75) H Lymphocytes % (Manual) 13 % (20-45) L Monocytes % (Manual) 2 % (1-10) Eosinophils % (Manual) 0 % (0-3) Basophils % (Manual) 0 % (0-2) Band Neutrophils 0 % (0-8) Platelet Estimate Adequate Platelet Morphology Normal Red Blood Cell Morphology Normal Erythrocyte Sedimentation Rate 7 MM/HR (0-20) Sodium Level 138 MMOL/L (136-145) Potassium Level 4.2 MMOL/L (3.5-5.1) Chloride Level 106 MMOL/L (98-107) Carbon Dioxide Level 28 MMOL/L (21-32) Anion Gap 4 mmol/L (5-15) L Blood Urea Nitrogen 20 mg/dL (7-18) H Creatinine 1.1 MG/DL (0.55-1.30) Estimat Glomerular Filtration Rate > 60 mL/min (>60) Glucose Level 184 MG/DL (74-106) H Calcium Level 8.6 MG/DL (8.5-10.1) Phosphorus Level 2.2 MG/DL (2.5-4.9) L Magnesium Level 2.0 MG/DL (1.8-2.4) Total Bilirubin 0.6 MG/DL (0.2-1.0) Aspartate Amino Transf (AST/SGOT) 32 U/L (15-37) Alanine Aminotransferase (ALT/SGPT) 55 U/L (12-78) Alkaline Phosphatase 57 U/L (46-116) C-Reactive Protein, Quantitative 6.9 mg/dL (0.00-0.90) H Total Protein 6.3 G/DL (6.4-8.2) L Albumin 3.4 G/DL (3.4-5.0) Globulin 2.9 g/dL Albumin/Globulin Ratio 1.2 (1.0-2.7) Arterial Blood pH 7.410 (7.350-7.450) Arterial Blood Partial Pressure CO2 40.7 mmHg (35.0-45.0) Arterial Blood Partial Pressure O2 82.5 mmHg (75.0-100.0) Arterial Blood HCO3 25.4 mmol/L (22.0-26.0) Arterial Blood Oxygen Saturation 96.4 % (92.0-98.0) Arterial Blood Base Excess 0.8 Alin Test Positive Microbiology Date/Time Source Procedure Growth Status 01/28/18 02:35 Blood Blood Culture - Preliminary NO GROWTH AFTER 24 HOURS Resulted 01/28/18 02:20 Blood Blood Culture - Preliminary NO GROWTH AFTER 24 HOURS Resulted 01/28/18 11:11 Sputum Gram Stain - Final Resulted 01/28/18 11:11 Sputum Sputum Culture - Preliminary NORMAL UPPER RESPIRATORY LAUREN AT 24 ... Resulted 01/28/18 00:25 Urine,Clean Catch Urine Culture - Preliminary NO GROWTH Resulted Intake and Output 01/28/18 01/29/18 19:00 07:00 Intake Total 496.0 ml 1260.5 ml Output Total 1170 ml 1290 ml Balance -674.0 ml -29.5 ml IV Total 456.0 ml 1020.5 ml Tube Feeding 240 ml Other 40 ml Output Urine Total 1170 ml 1290 ml Assessment/Plan Problem List: (1) Pneumonia Assessment & Plan: Continue zosyn. (2) Leukocytosis (3) Asthma (4) Abdominal pain (5) Respiratory distress (6) Acute respiratory failure Assessment & Plan: Continue vent per pulmonary Status: not improved APRIL HEATH Jan 29, 2018 15:51
[2018-01-29] MEDS: Dyna-Hex 2% Top Sol 2oz TOPIC SCH (19:38)
[2018-01-29] MEDS ORDERED: NS 275ml ONE (22:47)
[2018-01-29] MEDS ORDERED: Tubing IV Secondary IV ONE (22:47)
[2018-01-30] VITALS (47 sets, daily range): BP systolic 95–138; BP diastolic 50–81
[2018-01-30] MEDS: Albuterol ud Inhalation HHN SCH ×4 (01:06→19:01)
[2018-01-30] MEDS: Midazolam/D5W 100ml 100 ML IVPB PRN ×5 (02:37→23:46)
[2018-01-30] MEDS: Solu-MEDROL 125mg Inj IV SCH ×5 (02:40→23:44)
[2018-01-30] MEDS: Piperacillin/Tazobactam 3.375 GM in D5W 110 ML IVPB SCH ×3 (04:32→20:02)
[2018-01-30 04:47] LABS: HEMATOCRIT 37.7 % (42.0-52.0); MEAN CORPUSCULAR VOLUME 90 FL (80-99); PLATELET COUNT 245 K/UL (150-450); RED BLOOD COUNT 4.18 M/UL (4.70-6.10); RED CELL DISTRIBUTION WIDTH 12.5 % (11.6-14.8)
[2018-01-30 05:23] LABS: ALANINE AMINOTRANSFERASE 43 U/L (12-78); ALKALINE PHOSPHATASE 47 U/L (46-116); ANION GAP 9 mmol/L (5-15); ASPARTATE AMINO TRANSFERASE 18 U/L (15-37); BILIRUBIN,TOTAL 0.4 MG/DL (0.2-1.0); BLOOD UREA NITROGEN 21 mg/dL (7-18); CALCIUM 8.5 MG/DL (8.5-10.1); CARBON DIOXIDE 27 MMOL/L (21-32); CHLORIDE 106 MMOL/L (98-107); CREATININE 1.1 MG/DL (0.55-1.30); PHOSPHORUS 2.8 MG/DL (2.5-4.9); POTASSIUM 4.2 MMOL/L (3.5-5.1); SODIUM 141 MMOL/L (136-145)
[2018-01-30] MEDS: D5 1/2NS 1,000 ML IV SCH ×2 (06:01→23:44)
[2018-01-30] MEDS: NovoLOG Insulin Flexpen SUBQ SCH ×4 (06:03→20:33)
[2018-01-30] MEDS: Pantoprazole Inj IV SCH (08:51)
[2018-01-30] MEDS: Heparin 5000 units/ml inj SUBQ SCH ×2 (08:52→20:32)
--- NOTE | 2018-01-30 09:28 | Pulmonolgy Critical Care Note ---
Critical Care - Asmt/Plan Problems: (1) Acute respiratory failure (2) Acute encephalopathy (3) Acute asthma exacerbation Respiratory: monitor respiratory rate, adjust FIO2, CXR Cardiac: continue to monitor HR/BP Renal: F/U I&O, check electrolytes Infectious Disease: check cultures, continue antibiotics Gastrointestinal: continue feedings/current rate Endocrine: monitor blood sugar, check TSH Hematologic: monitor H/H, transfuse if hgb<8.5 Neurologic: PRN Morphine, keep patient comfortable Prophylaxis: Heparin Time Spent (Minutes): 30 Notes Reviewed: cardio, renal Discussed with: nurses, consultants, field nurse case managermanager case - Objective Last 24 Hour Vital Signs Date Time Temp Pulse Resp B/P (MAP) Pulse Ox O2 Delivery O2 Flow Rate FiO2 01/30/18 08:00 95 01/30/18 08:00 97 19 108/61 98 Mechanical Ventilator 35 01/30/18 08:00 35 01/30/18 07:30 98 18 107/59 99 Mechanical Ventilator 35 01/30/18 07:01 87 16 100 Mechanical Ventilator 35 01/30/18 07:00 98.8 100 19 95/52 97 Mechanical Ventilator 35 98.8 01/30/18 06:53 95 16 99 Mechanical Ventilator 35 01/30/18 06:53 100 21 35 01/30/18 06:00 100 22 121/61 99 Mechanical Ventilator 35 01/30/18 06:00 21 01/30/18 05:30 104 21 122/68 99 Mechanical Ventilator 35 01/30/18 05:00 97 17 114/65 99 Mechanical Ventilator 35 01/30/18 05:00 21 01/30/18 04:53 98 18 35 01/30/18 04:30 101 21 119/65 99 Mechanical Ventilator 35 01/30/18 04:00 97 01/30/18 04:00 98.3 97 18 97/61 98 Mechanical Ventilator 35 98.3 01/30/18 04:00 18 01/30/18 04:00 35 01/30/18 03:30 98 18 103/51 98 Mechanical Ventilator 35 01/30/18 03:00 17 01/30/18 03:00 98 17 107/53 98 Mechanical Ventilator 35 01/30/18 02:55 97 18 35 01/30/18 02:37 18 01/30/18 02:30 98 18 105/54 98 Mechanical Ventilator 35 01/30/18 02:00 97 18 97/51 98 Mechanical Ventilator 35 01/30/18 02:00 18 01/30/18 01:30 99 20 99/50 98 Mechanical Ventilator 35 01/30/18 01:12 91 17 100 Mechanical Ventilator 35 01/30/18 01:06 97 20 35 01/30/18 01:06 97 20 99 Mechanical Ventilator 35 01/30/18 01:00 21 01/30/18 01:00 97 21 138/81 100 Mechanical Ventilator 35 01/30/18 00:30 93 17 119/64 99 Mechanical Ventilator 35 01/30/18 00:00 94 01/30/18 00:00 35 01/30/18 00:00 98.0 94 17 121/64 99 Mechanical Ventilator 35 98.0 01/30/18 00:00 17 01/29/18 23:30 96 17 114/62 99 Mechanical Ventilator 35 01/29/18 23:00 96 17 118/65 99 Mechanical Ventilator 35 01/29/18 23:00 17 01/29/18 22:42 98 17 35 01/29/18 22:30 98 17 107/61 99 Mechanical Ventilator 35 01/29/18 22:00 99 17 110/64 99 Mechanical Ventilator 35 01/29/18 22:00 16 01/29/18 21:30 101 17 110/57 99 Mechanical Ventilator 35 01/29/18 21:17 98 17 35 01/29/18 21:00 16 01/29/18 21:00 100 17 109/57 99 Mechanical Ventilator 35 01/29/18 20:30 102 19 105/48 97 Mechanical Ventilator 35 01/29/18 20:00 97.8 104 17 92/46 97 Mechanical Ventilator 35 97.8 01/29/18 20:00 102 01/29/18 20:00 35 01/29/18 20:00 16 01/29/18 19:39 16 01/29/18 19:33 84 17 100 Mechanical Ventilator 35 01/29/18 19:30 101 17 109/60 99 Mechanical Ventilator 35 01/29/18 19:24 98 18 35 01/29/18 19:23 98 18 98 Mechanical Ventilator 35 01/29/18 19:00 97 19 116/59 99 Mechanical Ventilator 35 01/29/18 19:00 19 01/29/18 18:30 97 19 130/63 99 Mechanical Ventilator 35 01/29/18 18:00 95 16 120/72 100 Mechanical Ventilator 35 01/29/18 18:00 22 01/29/18 17:19 86 16 35 01/29/18 17:00 86 16 110/62 99 Mechanical Ventilator 35 01/29/18 17:00 20 01/29/18 16:30 89 16 112/62 99 Mechanical Ventilator 35 01/29/18 16:00 35 01/29/18 16:00 16 01/29/18 16:00 98.0 90 16 101/63 99 Mechanical Ventilator 35 98.0 01/29/18 16:00 90 01/29/18 15:30 92 16 104/59 100 Mechanical Ventilator 35 01/29/18 15:00 97 15 107/64 99 Mechanical Ventilator 35 01/29/18 15:00 16 01/29/18 14:55 95 16 35 01/29/18 14:30 95 16 107/60 99 Mechanical Ventilator 35 01/29/18 14:00 17 01/29/18 14:00 96 13 116/63 99 Mechanical Ventilator 35 01/29/18 13:35 88 17 100 Mechanical Ventilator 35 01/29/18 13:30 90 16 123/68 99 Mechanical Ventilator 35 01/29/18 13:26 89 17 35 01/29/18 13:25 88 17 100 Mechanical Ventilator 35 01/29/18 13:00 17 01/29/18 13:00 89 17 94/56 99 Mechanical Ventilator 35 01/29/18 12:30 89 17 106/59 99 Mechanical Ventilator 35 01/29/18 12:29 35 01/29/18 12:00 16 01/29/18 12:00 89 01/29/18 12:00 98.9 89 16 125/61 100 Mechanical Ventilator 35 98.9 01/29/18 11:30 86 16 102/53 100 Mechanical Ventilator 35 01/29/18 11:24 16 01/29/18 11:15 85 16 35 01/29/18 11:00 16 01/29/18 11:00 87 16 88/54 99 Mechanical Ventilator 35 01/29/18 10:30 88 16 93/50 99 Mechanical Ventilator 35 01/29/18 10:00 16 01/29/18 10:00 89 16 93/53 99 Mechanical Ventilator 35 01/29/18 09:30 91 16 99/51 99 Mechanical Ventilator 35 Status: awake Condition: critical HEENT: atraumatic Neck: full ROM Lungs: clear Heart: HR/BP stable Abdomen: soft, non-tender, feeding tube Extremities: edema Decubiti: location Micro: Microbiology Date/Time Source Procedure Growth Status 01/28/18 02:35 Blood Blood Culture - Preliminary NO GROWTH AFTER 24 HOURS Resulted 01/28/18 02:20 Blood Blood Culture - Preliminary NO GROWTH AFTER 24 HOURS Resulted 01/28/18 11:11 Sputum Gram Stain - Final Resulted 01/28/18 11:11 Sputum Culture - Preliminary Staphylococcus Aureus Resulted 01/28/18 04:43 Nasal Nares MRSA Culture - Final NO METHICILLIN RESISTANT STAPH AUREUS... Complete 01/28/18 00:25 Urine,Clean Catch Urine Culture - Final NO GROWTH AFTER 48 HOURS Complete 01/28/18 04:43 Rectum VRE Culture - Final NO VANCOMYCIN RESISTANT ENTEROCOCCUS ... Complete Accucheck: 141 Critical Care - Subjective FI02: 35 Vent Support Breath Rate: 16 Vent Support Mode: AC Vent Tidal Volume: 600 Sputum Amount: Moderate PEEP: 5.0 PIP: 33 Tube Feeding Amount: 20 I&O: Intake and Output 01/29/18 01/30/18 19:00 07:00 Intake Total 1449.5 ml 1131.0 ml Output Total 910 ml 920 ml Balance 539.5 ml 211.0 ml Intake Free Water 100 ml IV Total 1109.5 ml 891.0 ml Tube Feeding 240 ml 240 ml Output Urine Total 910 ml 920 ml CXR: no change ET-Tube: 7.5 ET Position: 24 Labs: Laboratory Tests Test 01/30/18 04:15 White Blood Count 12.0 K/UL (4.8-10.8) H Red Blood Count 4.18 M/UL (4.70-6.10) L Hemoglobin 13.0 G/DL (14.2-18.0) L Hematocrit 37.7 % (42.0-52.0) L Mean Corpuscular Volume 90 FL (80-99) Mean Corpuscular Hemoglobin 31.0 PG (27.0-31.0) Mean Corpuscular Hemoglobin Concent 34.3 G/DL (32.0-36.0) Red Cell Distribution Width 12.5 % (11.6-14.8) Platelet Count 245 K/UL (150-450) Mean Platelet Volume 8.0 FL (6.5-10.1) Neutrophils (%) (Auto) % (45.0-75.0) Lymphocytes (%) (Auto) % (20.0-45.0) Monocytes (%) (Auto) % (1.0-10.0) Eosinophils (%) (Auto) % (0.0-3.0) Basophils (%) (Auto) % (0.0-2.0) Differential Total Cells Counted 100 Neutrophils % (Manual) 89 % (45-75) H Lymphocytes % (Manual) 6 % (20-45) L Monocytes % (Manual) 5 % (1-10) Eosinophils % (Manual) 0 % (0-3) Basophils % (Manual) 0 % (0-2) Band Neutrophils 0 % (0-8) Platelet Estimate Adequate Platelet Morphology Normal Red Blood Cell Morphology Normal Arterial Blood pH 7.442 (7.350-7.450) Arterial Blood Partial Pressure CO2 39.1 mmHg (35.0-45.0) Arterial Blood Partial Pressure O2 71.3 mmHg (75.0-100.0) L Arterial Blood HCO3 26.1 mmol/L (22.0-26.0) H Arterial Blood Oxygen Saturation 94.4 % (92.0-98.0) Arterial Blood Base Excess 2.0 Alin Test Positive Sodium Level 141 MMOL/L (136-145) Potassium Level 4.2 MMOL/L (3.5-5.1) Chloride Level 106 MMOL/L (98-107) Carbon Dioxide Level 27 MMOL/L (21-32) Anion Gap 9 mmol/L (5-15) Blood Urea Nitrogen 21 mg/dL (7-18) H Creatinine 1.1 MG/DL (0.55-1.30) Estimat Glomerular Filtration Rate > 60 mL/min (>60) Glucose Level 168 MG/DL (74-106) H Calcium Level 8.5 MG/DL (8.5-10.1) Phosphorus Level 2.8 MG/DL (2.5-4.9) Magnesium Level 2.2 MG/DL (1.8-2.4) Total Bilirubin 0.4 MG/DL (0.2-1.0) Aspartate Amino Transf (AST/SGOT) 18 U/L (15-37) Alanine Aminotransferase (ALT/SGPT) 43 U/L (12-78) Alkaline Phosphatase 47 U/L (46-116) Total Protein 6.1 G/DL (6.4-8.2) L Albumin 3.0 G/DL (3.4-5.0) L Globulin 3.1 g/dL Albumin/Globulin Ratio 1.0 (1.0-2.7) Ahsan Wu MD Jan 30, 2018 09:28
[2018-01-30] MEDS ORDERED: Vancomycin 1.5 GM/D5W 250ML IVPB ONE (09:45)
--- NOTE | 2018-01-30 11:18 | Diagnostic Imaging Report ---
Indication: Dyspnea Technique: One view of the chest Comparison: 01/29/2018 Findings: Patient is rotated to the right. There is persistent reticular opacity at both lung bases, although this may be slightly improved. Central bronchial wall thickening persists, unchanged. Heart size is normal. Impression: Equivocal slight improvement of reticular parenchymal disease at both lung bases, over one.
--- NOTE | 2018-01-30 15:24 | Internal Med Progress Note ---
Subjective Date of Service: Jan 30, 2018 Physician Name April Heath Attending Physician Fam Joe MD Current Medications Medications (Trade) Dose Ordered Sig/Shereen Route PRN Reason Start Time Stop Time Status Last Admin Dose Admin Albuterol Sulfate (Proventil) 2.5 mg Q4H PRN HHN Shortness of Breath 01/28/18 09:00 02/02/18 08:59 01/28/18 13:01 Albuterol Sulfate (Proventil) 2.5 mg Q6HRT HHN 01/28/18 13:00 02/02/18 12:59 01/30/18 13:18 Albuterol/ Ipratropium (Albuterol/ Ipratropium) 3 ml Q4H PRN HHN Shortness of Breath 01/28/18 11:00 02/02/18 10:59 Chlorhexidine Gluconate (Dari-Hex 2%) 1 applic DAILY@2000 TOPIC 01/29/18 20:00 02/28/18 19:59 Dextrose (Dextrose 50%) 25 ml STAT PRN IV Hypoglycemia 01/28/18 10:45 02/27/18 10:44 Dextrose/Sodium Chloride 1,000 ml @ 50 mls/hr Q20H IV 01/28/18 11:00 02/27/18 10:59 01/30/18 06:01 Heparin Sodium (Porcine) (Heparin 5000 units/ml) 5,000 units EVERY 12 HOURS SUBQ 01/28/18 21:00 02/27/18 20:59 01/30/18 08:52 Insulin Aspart (NovoLOG) BEFORE MEALS AND HS SUBQ 01/28/18 11:30 02/27/18 11:29 01/30/18 10:51 Lorazepam (Ativan 2mg/ml 1ml) 2 mg Q4H PRN IV For Anxiety 01/28/18 11:00 02/04/18 10:59 01/29/18 00:31 Methylprednisolone Sodium Succinate (Solu-MEDROL) 60 mg EVERY 6 HOURS IV 01/28/18 12:00 02/27/18 11:59 01/30/18 12:00 Midazolam HCl 100 ml @ 0 mls/hr Q24H PRN IVPB To Patient Comfort 01/28/18 11:00 02/04/18 10:59 01/30/18 09:26 Morphine Sulfate (Morphine Sulfate) 2 mg Q4H PRN IVP Moderate Pain (Pain Scale 4-6) 01/28/18 11:30 02/04/18 10:59 Morphine Sulfate (Morphine Sulfate) 4 mg Q4H PRN IVP Severe Pain (Pain Scale 7-10) 01/28/18 10:30 02/04/18 10:29 01/29/18 01:10 Nitroglycerin (Ntg) 0.4 mg Q5M X 3 DOSES PRN SL Prn Chest Pain 01/28/18 11:00 02/27/18 10:59 Ondansetron HCl (Zofran) 4 mg Q6H PRN IVP Nausea & Vomiting 01/28/18 11:00 02/27/18 10:59 Pantoprazole (Protonix) 40 mg DAILY IV 01/29/18 09:00 02/28/18 08:59 01/30/18 08:51 Piperacillin Sod/ Tazobactam Sod 3.375 gm/Dextrose 110 ml @ 27.5 mls/hr Q8H IVPB 01/28/18 12:00 02/04/18 11:59 01/30/18 12:00 Vancomycin HCl (Vanco rx to dose) 1 ea DAILY PRN MISC . 01/30/18 09:15 03/01/18 09:14 Vancomycin HCl/ Dextrose 250 ml @ 166.667 mls/hr Q12H IVPB 01/30/18 20:00 02/04/18 19:59 Allergies: Coded Allergies: No Known Allergies (Unverified , 01/28/18) ROS Limited/Unobtainable: Yes Subjective 62 YO M admitted with Respiratory failure. Now pneumonia. Intubated and sedated. Cover for Int Eric-Dr Joe. ICU Objective Last Vital Signs Date Time Temp Pulse Resp B/P (MAP) Pulse Ox O2 Delivery O2 Flow Rate FiO2 01/30/18 14:57 98 16 35 01/30/18 14:00 109/59 97 Mechanical Ventilator 01/30/18 09:56 98.8 Laboratory Tests Test 01/30/18 04:15 White Blood Count 12.0 K/UL (4.8-10.8) H Red Blood Count 4.18 M/UL (4.70-6.10) L Hemoglobin 13.0 G/DL (14.2-18.0) L Hematocrit 37.7 % (42.0-52.0) L Mean Corpuscular Volume 90 FL (80-99) Mean Corpuscular Hemoglobin 31.0 PG (27.0-31.0) Mean Corpuscular Hemoglobin Concent 34.3 G/DL (32.0-36.0) Red Cell Distribution Width 12.5 % (11.6-14.8) Platelet Count 245 K/UL (150-450) Mean Platelet Volume 8.0 FL (6.5-10.1) Neutrophils (%) (Auto) % (45.0-75.0) Lymphocytes (%) (Auto) % (20.0-45.0) Monocytes (%) (Auto) % (1.0-10.0) Eosinophils (%) (Auto) % (0.0-3.0) Basophils (%) (Auto) % (0.0-2.0) Differential Total Cells Counted 100 Neutrophils % (Manual) 89 % (45-75) H Lymphocytes % (Manual) 6 % (20-45) L Monocytes % (Manual) 5 % (1-10) Eosinophils % (Manual) 0 % (0-3) Basophils % (Manual) 0 % (0-2) Band Neutrophils 0 % (0-8) Platelet Estimate Adequate Platelet Morphology Normal Red Blood Cell Morphology Normal Arterial Blood pH 7.442 (7.350-7.450) Arterial Blood Partial Pressure CO2 39.1 mmHg (35.0-45.0) Arterial Blood Partial Pressure O2 71.3 mmHg (75.0-100.0) L Arterial Blood HCO3 26.1 mmol/L (22.0-26.0) H Arterial Blood Oxygen Saturation 94.4 % (92.0-98.0) Arterial Blood Base Excess 2.0 Alin Test Positive Sodium Level 141 MMOL/L (136-145) Potassium Level 4.2 MMOL/L (3.5-5.1) Chloride Level 106 MMOL/L (98-107) Carbon Dioxide Level 27 MMOL/L (21-32) Anion Gap 9 mmol/L (5-15) Blood Urea Nitrogen 21 mg/dL (7-18) H Creatinine 1.1 MG/DL (0.55-1.30) Estimat Glomerular Filtration Rate > 60 mL/min (>60) Glucose Level 168 MG/DL (74-106) H Calcium Level 8.5 MG/DL (8.5-10.1) Phosphorus Level 2.8 MG/DL (2.5-4.9) Magnesium Level 2.2 MG/DL (1.8-2.4) Total Bilirubin 0.4 MG/DL (0.2-1.0) Aspartate Amino Transf (AST/SGOT) 18 U/L (15-37) Alanine Aminotransferase (ALT/SGPT) 43 U/L (12-78) Alkaline Phosphatase 47 U/L (46-116) Total Protein 6.1 G/DL (6.4-8.2) L Albumin 3.0 G/DL (3.4-5.0) L Globulin 3.1 g/dL Albumin/Globulin Ratio 1.0 (1.0-2.7) Microbiology Date/Time Source Procedure Growth Status 01/28/18 02:35 Blood Blood Culture - Preliminary NO GROWTH AFTER 48 HOURS Resulted 01/28/18 02:20 Blood Blood Culture - Preliminary NO GROWTH AFTER 48 HOURS Resulted 01/28/18 11:11 Sputum Gram Stain - Final Resulted 01/28/18 11:11 Sputum Culture - Preliminary Staphylococcus Aureus Resulted 01/28/18 04:43 Nasal Nares MRSA Culture - Final NO METHICILLIN RESISTANT STAPH AUREUS... Complete 01/28/18 00:25 Urine,Clean Catch Urine Culture - Final NO GROWTH AFTER 48 HOURS Complete 01/28/18 04:43 Rectum VRE Culture - Final NO VANCOMYCIN RESISTANT ENTEROCOCCUS ... Complete Intake and Output 01/29/18 01/30/18 19:00 07:00 Intake Total 1449.5 ml 1224.5 ml Output Total 910 ml 920 ml Balance 539.5 ml 304.5 ml Intake Free Water 100 ml IV Total 1109.5 ml 984.5 ml Tube Feeding 240 ml 240 ml Output Urine Total 910 ml 920 ml Objective General Appearance: WD/WN, moderate distress EENT: PERRL/EOMI, normal ENT inspection Neck: non-tender, normal alignment, supple Cardiovascular: normal peripheral pulses, normal rate, regular rhythm, no gallop/murmur, no JVD Respiratory/Chest: Mech vent; respiratory distress, crackles/rales, rhonchi - bilaterally, expiratory wheezing Abdomen: normal bowel sounds, non tender, soft, no organomegaly, no mass 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 (2) Leukocytosis (3) Asthma (4) Abdominal pain (5) Respiratory distress (6) Acute respiratory failure Assessment & Plan: Continue vent per pulmonary Status: not improved APRIL HEATH Jan 30, 2018 15:24
[2018-01-30] MEDS: Morphine Sulfate 4mg/ml Inj IVP PRN ×2 (17:53→23:45)
[2018-01-30] MEDS: Vancomycin 1250mg/D5W 250ml IVPB SCH (20:02)
[2018-01-30] MEDS: Dyna-Hex 2% Top Sol 2oz TOPIC SCH (20:05)
[2018-01-30] MEDS: LORazepam Inj 2mg/ml 1ml IV PRN (20:29)
--- NOTE | 2018-01-30 22:50 | Infectious Diseases Prog Note ---
Assessment/Plan Assessment/Plan ASSESSMENT: The patient is a 62-year-old male with: Probable aspiration pneumonia. Scx: Staph A Asthma. Ventilator-dependent respiratory failure. Leukocytosis. Asthma. PLAN: continue the patient on IV Zosyn day # 2 Monitor CBC and BMP. Monitor cultures (blood, urine, and sputum). Monitor chest x-ray. Subjective Constitutional: Denies: no symptoms, fever, chills, fatigue, anorexia, drenching sweats, other Allergies: Coded Allergies: No Known Allergies (Unverified , 01/28/18) Objective Vital Signs Last 24 Hour Vital Signs Date Time Temp Pulse Resp B/P (MAP) Pulse Ox O2 Delivery O2 Flow Rate FiO2 01/30/18 22:42 90 17 35 01/30/18 22:00 18 01/30/18 21:30 96 19 107/67 97 Mechanical Ventilator 35 01/30/18 21:25 97 21 35 01/30/18 21:00 92 18 128/66 98 Mechanical Ventilator 35 01/30/18 21:00 19 01/30/18 20:31 18 01/30/18 20:30 93 18 120/69 99 Mechanical Ventilator 35 01/30/18 20:00 35 01/30/18 20:00 24 01/30/18 20:00 98.5 92 18 129/69 99 Mechanical Ventilator 35 98.5 01/30/18 19:30 92 19 124/67 99 Mechanical Ventilator 35 01/30/18 19:11 90 16 99 Mechanical Ventilator 35 01/30/18 19:01 96 20 99 Mechanical Ventilator 35 01/30/18 19:01 96 20 35 01/30/18 19:00 92 18 113/62 98 Mechanical Ventilator 35 01/30/18 18:30 90 18 118/66 98 Mechanical Ventilator 35 01/30/18 18:00 88 17 115/68 98 Mechanical Ventilator 35 01/30/18 18:00 16 01/30/18 17:30 88 17 110/66 97 Mechanical Ventilator 35 01/30/18 17:00 98.7 92 19 112/66 97 Mechanical Ventilator 35 98.7 01/30/18 17:00 16 01/30/18 16:45 90 19 35 01/30/18 16:30 90 17 108/64 97 Mechanical Ventilator 35 01/30/18 16:22 98.8 4/15/18 16:00 35 01/3018 16:00 90 20 110/60 97 Mechanical Ventilator 35 15/18 16:00 96 18 15:52 17 18 15:30 88 20 108/58 97 Mechanical Ventilator 35 /15/18 15:00 89 20 107/56 97 Mechanical Ventilator 35 /15/18 15:00 16 18 14:57 98 16 35 18 14:30 98.8 94 20 106/56 97 Mechanical Ventilator 35 98.8 01/30/18 14:00 16 01/30/18 14:00 95 20 109/59 97 Mechanical Ventilator 35 01/30/18 13:30 97 21 108/56 98 Mechanical Ventilator 35 01/30/18 13:18 87 16 99 Mechanical Ventilator 35 01/30/18 13:18 89 16 35 01/30/18 13:17 93 16 100 Mechanical Ventilator 35 01/30/18 13:00 16 01/30/18 13:00 95 21 127/74 98 Mechanical Ventilator 35 01/30/18 12:30 91 17 127/74 99 Mechanical Ventilator 35 18 12:00 35 01/30/18 12:00 92 01/30/18 12:00 17 01/30/18 12:00 93 17 126/70 97 Mechanical Ventilator 35 01/30/18 11:30 94 17 120/68 97 Mechanical Ventilator 35 01/30/18 11:09 95 17 35 18 11:00 92 17 114/68 97 Mechanical Ventilator 35 01/30/18 10:50 17 01/30/18 10:30 92 17 110/66 97 Mechanical Ventilator 35 01/30/18 10:00 17 01/30/18 10:00 92 17 101/60 98 Mechanical Ventilator 35 01/30/18 09:30 91 18 114/58 98 Mechanical Ventilator 35 15/18 09:26 16 01/30/18 09:00 92 18 114/62 98 Mechanical Ventilator 35 18 08:53 100 20 35 01/30/18 08:30 94 18 102/60 98 Mechanical Ventilator 35 15/18 08:00 95 01/30/18 08:00 97 19 108/61 98 Mechanical Ventilator 35 01/30/18 08:00 18 01/30/18 08:00 35 4/15/18 07:30 98 18 107/59 99 Mechanical Ventilator 35 01/30/18 07:01 87 16 100 Mechanical Ventilator 35 01/30/18 07:00 18 01/30/18 07:00 98.8 100 19 95/52 97 Mechanical Ventilator 35 98.8 01/30/18 06:53 95 16 99 Mechanical Ventilator 35 01/30/18 06:53 100 21 35 01/30/18 06:00 100 22 121/61 99 Mechanical Ventilator 35 01/30/18 06:00 21 01/30/18 05:30 104 21 122/68 99 Mechanical Ventilator 35 01/30/18 05:00 97 17 114/65 99 Mechanical Ventilator 35 01/30/18 05:00 21 01/30/18 04:53 98 18 35 01/30/18 04:30 101 21 119/65 99 Mechanical Ventilator 35 01/30/18 04:00 97 01/30/18 04:00 98.3 97 18 97/61 98 Mechanical Ventilator 35 98.3 01/30/18 04:00 18 01/30/18 04:00 35 01/30/18 03:30 98 18 103/51 98 Mechanical Ventilator 35 01/30/18 03:00 17 01/30/18 03:00 98 17 107/53 98 Mechanical Ventilator 35 01/30/18 02:55 97 18 35 01/30/18 02:37 18 01/30/18 02:30 98 18 105/54 98 Mechanical Ventilator 35 01/30/18 02:00 97 18 97/51 98 Mechanical Ventilator 35 01/30/18 02:00 18 01/30/18 01:30 99 20 99/50 98 Mechanical Ventilator 35 01/30/18 01:12 91 17 100 Mechanical Ventilator 35 01/30/18 01:06 97 20 35 01/30/18 01:06 97 20 99 Mechanical Ventilator 35 01/30/18 01:00 21 01/30/18 01:00 97 21 138/81 100 Mechanical Ventilator 35 01/30/18 00:30 93 17 119/64 99 Mechanical Ventilator 35 01/30/18 00:00 94 01/30/18 00:00 35 01/30/18 00:00 98.0 94 17 121/64 99 Mechanical Ventilator 35 98.0 01/30/18 00:00 17 01/29/18 23:30 96 17 114/62 99 Mechanical Ventilator 35 01/29/18 23:00 96 17 118/65 99 Mechanical Ventilator 35 01/29/18 23:00 17 Height (Feet): 5 Height (Inches): 11.00 Weight (Pounds): 235 HEENT: anicteric Respiratory/Chest: normal breath sounds Cardiovascular: regular rhythm Abdomen: no organomegaly Microbiology Date/Time Source Procedure Growth Status 01/28/18 02:35 Blood Blood Culture - Preliminary NO GROWTH AFTER 48 HOURS Resulted 01/28/18 02:20 Blood Blood Culture - Preliminary NO GROWTH AFTER 48 HOURS Resulted 01/28/18 11:11 Sputum Gram Stain - Final Resulted 01/28/18 11:11 Sputum Culture - Preliminary Staphylococcus Aureus Resulted 01/28/18 04:43 Nasal Nares MRSA Culture - Final NO METHICILLIN RESISTANT STAPH AUREUS... Complete 01/28/18 00:25 Urine,Clean Catch Urine Culture - Final NO GROWTH AFTER 48 HOURS Complete 01/28/18 04:43 Rectum VRE Culture - Final NO VANCOMYCIN RESISTANT ENTEROCOCCUS ... Complete Laboratory Tests Test 01/30/18 04:15 White Blood Count 12.0 K/UL (4.8-10.8) H Red Blood Count 4.18 M/UL (4.70-6.10) L Hemoglobin 13.0 G/DL (14.2-18.0) L Hematocrit 37.7 % (42.0-52.0) L Mean Corpuscular Volume 90 FL (80-99) Mean Corpuscular Hemoglobin 31.0 PG (27.0-31.0) Mean Corpuscular Hemoglobin Concent 34.3 G/DL (32.0-36.0) Red Cell Distribution Width 12.5 % (11.6-14.8) Platelet Count 245 K/UL (150-450) Mean Platelet Volume 8.0 FL (6.5-10.1) Neutrophils (%) (Auto) % (45.0-75.0) Lymphocytes (%) (Auto) % (20.0-45.0) Monocytes (%) (Auto) % (1.0-10.0) Eosinophils (%) (Auto) % (0.0-3.0) Basophils (%) (Auto) % (0.0-2.0) Differential Total Cells Counted 100 Neutrophils % (Manual) 89 % (45-75) H Lymphocytes % (Manual) 6 % (20-45) L Monocytes % (Manual) 5 % (1-10) Eosinophils % (Manual) 0 % (0-3) Basophils % (Manual) 0 % (0-2) Band Neutrophils 0 % (0-8) Platelet Estimate Adequate Platelet Morphology Normal Red Blood Cell Morphology Normal Arterial Blood pH 7.442 (7.350-7.450) Arterial Blood Partial Pressure CO2 39.1 mmHg (35.0-45.0) Arterial Blood Partial Pressure O2 71.3 mmHg (75.0-100.0) L Arterial Blood HCO3 26.1 mmol/L (22.0-26.0) H Arterial Blood Oxygen Saturation 94.4 % (92.0-98.0) Arterial Blood Base Excess 2.0 Alin Test Positive Sodium Level 141 MMOL/L (136-145) Potassium Level 4.2 MMOL/L (3.5-5.1) Chloride Level 106 MMOL/L (98-107) Carbon Dioxide Level 27 MMOL/L (21-32) Anion Gap 9 mmol/L (5-15) Blood Urea Nitrogen 21 mg/dL (7-18) H Creatinine 1.1 MG/DL (0.55-1.30) Estimat Glomerular Filtration Rate > 60 mL/min (>60) Glucose Level 168 MG/DL (74-106) H Calcium Level 8.5 MG/DL (8.5-10.1) Phosphorus Level 2.8 MG/DL (2.5-4.9) Magnesium Level 2.2 MG/DL (1.8-2.4) Total Bilirubin 0.4 MG/DL (0.2-1.0) Aspartate Amino Transf (AST/SGOT) 18 U/L (15-37) Alanine Aminotransferase (ALT/SGPT) 43 U/L (12-78) Alkaline Phosphatase 47 U/L (46-116) Total Protein 6.1 G/DL (6.4-8.2) L Albumin 3.0 G/DL (3.4-5.0) L Globulin 3.1 g/dL Albumin/Globulin Ratio 1.0 (1.0-2.7) Current Medications Medications (Trade) Dose Ordered Sig/Shereen Route PRN Reason Start Time Stop Time Status Last Admin Dose Admin Albuterol Sulfate (Proventil) 2.5 mg Q6HRT HHN 01/28/18 13:00 02/02/18 12:59 01/30/18 19:01 Albuterol/ Ipratropium (Albuterol/ Ipratropium) 3 ml Q4H PRN HHN Shortness of Breath 01/28/18 11:00 02/02/18 10:59 Chlorhexidine Gluconate (Dari-Hex 2%) 1 applic DAILY@2000 TOPIC 01/29/18 20:00 02/28/18 19:59 01/30/18 20:05 Dextrose (Dextrose 50%) 25 ml STAT PRN IV Hypoglycemia 01/28/18 10:45 02/27/18 10:44 Dextrose/Sodium Chloride 1,000 ml @ 50 mls/hr Q20H IV 01/28/18 11:00 02/27/18 10:59 01/30/18 06:01 Heparin Sodium (Porcine) (Heparin 5000 units/ml) 5,000 units EVERY 12 HOURS SUBQ 01/28/18 21:00 02/27/18 20:59 01/30/18 20:32 Insulin Aspart (NovoLOG) BEFORE MEALS AND HS SUBQ 01/28/18 11:30 02/27/18 11:29 01/30/18 20:33 Lorazepam (Ativan 2mg/ml 1ml) 2 mg Q4H PRN IV For Anxiety 01/28/18 11:00 02/04/18 10:59 01/30/18 20:29 Methylprednisolone Sodium Succinate (Solu-MEDROL) 60 mg EVERY 6 HOURS IV 01/28/18 12:00 02/27/18 11:59 01/30/18 17:07 Midazolam HCl 100 ml @ 0 mls/hr Q24H PRN IVPB To Patient Comfort 01/28/18 11:00 02/04/18 10:59 01/30/18 20:31 Morphine Sulfate (Morphine Sulfate) 2 mg Q4H PRN IVP Moderate Pain (Pain Scale 4-6) 01/28/18 11:30 02/04/18 10:59 Morphine Sulfate (Morphine Sulfate) 4 mg Q4H PRN IVP Severe Pain (Pain Scale 7-10) 01/28/18 10:30 02/04/18 10:29 01/30/18 17:53 Nitroglycerin (Ntg) 0.4 mg Q5M X 3 DOSES PRN SL Prn Chest Pain 01/28/18 11:00 02/27/18 10:59 Ondansetron HCl (Zofran) 4 mg Q6H PRN IVP Nausea & Vomiting 01/28/18 11:00 02/27/18 10:59 Pantoprazole (Protonix) 40 mg DAILY IV 01/29/18 09:00 02/28/18 08:59 01/30/18 08:51 Piperacillin Sod/ Tazobactam Sod 3.375 gm/Dextrose 110 ml @ 27.5 mls/hr Q8H IVPB 01/28/18 12:00 02/04/18 11:59 01/30/18 20:02 Vancomycin HCl (Vanco rx to dose) 1 ea DAILY PRN MISC . 01/30/18 09:15 03/01/18 09:14 Vancomycin HCl/ Dextrose 250 ml @ 166.667 mls/hr Q12H IVPB 01/30/18 20:00 02/04/18 19:59 01/30/18 20:02 Mike Domingo MD Jan 30, 2018 22:50
[2018-01-31] VITALS (39 sets, daily range): BP systolic 104–161; BP diastolic 54–99
[2018-01-31] MEDS: Albuterol ud Inhalation HHN SCH ×4 (00:53→20:30)
[2018-01-31] MEDS: LORazepam Inj 2mg/ml 1ml IV PRN (02:58)
[2018-01-31] MEDS: Midazolam/D5W 100ml 100 ML IVPB PRN ×3 (03:58→22:45)
[2018-01-31] MEDS: Morphine Sulfate 4mg/ml Inj IVP PRN ×3 (03:58→20:59)
[2018-01-31] MEDS: Piperacillin/Tazobactam 3.375 GM in D5W 110 ML IVPB SCH ×2 (03:59→12:01)
[2018-01-31 04:39] LABS: HEMATOCRIT 38.9 % (42.0-52.0); HEMOGLOBIN 13.8 G/DL (14.2-18.0); MEAN CORPUSCULAR VOLUME 90 FL (80-99); PLATELET COUNT 256 K/UL (150-450); RED BLOOD COUNT 4.34 M/UL (4.70-6.10); RED CELL DISTRIBUTION WIDTH 12.3 % (11.6-14.8); WHITE BLOOD COUNT 10.1 K/UL (4.8-10.8)
[2018-01-31 05:00] LABS: ALANINE AMINOTRANSFERASE 44 U/L (12-78); ALBUMIN 3.1 G/DL (3.4-5.0); ALBUMIN/GLOBULIN RATIO 0.9 (1.0-2.7); ALKALINE PHOSPHATASE 53 U/L (46-116); ANION GAP 7 mmol/L (5-15); ASPARTATE AMINO TRANSFERASE 14 U/L (15-37); BILIRUBIN,TOTAL 0.5 MG/DL (0.2-1.0); BLOOD UREA NITROGEN 21 mg/dL (7-18); CALCIUM 9.1 MG/DL (8.5-10.1); CARBON DIOXIDE 27 MMOL/L (21-32); CHLORIDE 102 MMOL/L (98-107); CREATININE 1.1 MG/DL (0.55-1.30); SODIUM 136 MMOL/L (136-145)
[2018-01-31] MEDS: Solu-MEDROL 125mg Inj IV SCH ×3 (05:55→21:01)
[2018-01-31] MEDS: NovoLOG Insulin Flexpen SUBQ SCH ×4 (06:01→21:00)
[2018-01-31] MEDS: Pantoprazole Inj IV SCH (08:45)
[2018-01-31] MEDS: Vancomycin 1250mg/D5W 250ml IVPB SCH (08:45)
[2018-01-31] MEDS: Heparin 5000 units/ml inj SUBQ SCH ×2 (08:46→20:45)
--- NOTE | 2018-01-31 09:24 | Diagnostic Imaging Report ---
Indication: Dyspnea Technique: One view of the chest Comparison: none Findings: There is developing atelectasis and possibly consolidation at the right lung base. Stable satisfactory position of endotracheal tube. The left lung and bilateral pleural spaces remain clear. Heart size is normal Impression: Bibasilar atelectasis and possible consolidation, new/increased since previous day's exam
[2018-01-31] MEDS ORDERED: Haloperidol 5mg/ml Inj IVPB PRN (10:45)
--- NOTE | 2018-01-31 10:46 | Pulmonolgy Critical Care Note ---
Critical Care - Asmt/Plan Problems: (1) Acute respiratory failure (2) Acute encephalopathy (3) Acute asthma exacerbation Respiratory: adjust tidal volume, monitor respiratory rate, adjust FIO2, CXR, weaning trial Cardiac: continue to monitor HR/BP Renal: F/U I&O, decrease IV fluid, other - on vancomycin and zosyn Infectious Disease: check cultures, continue antibiotics Gastrointestinal: continue feedings/current rate Hematologic: monitor H/H Neurologic: PRN Ativan, PRN Morphine Affect: PRN ativan Prophylaxis: Protonix, Heparin Time Spent (Minutes): 30 Notes Reviewed: cardio Discussed with: nurses, consultants, renal case managerbuild and release manager - Objective Last 24 Hour Vital Signs Date Time Temp Pulse Resp B/P (MAP) Pulse Ox O2 Delivery O2 Flow Rate FiO2 01/31/18 09:28 22 01/31/18 09:01 104 21 35 01/31/18 09:00 104 25 118/67 98 Mechanical Ventilator 35 01/31/18 08:30 101 24 123/65 96 Mechanical Ventilator 35 01/31/18 08:00 92 01/31/18 08:00 98.8 103 22 114/66 97 Mechanical Ventilator 35 98.8 01/31/18 08:00 35 01/31/18 07:47 95 18 99 Mechanical Ventilator 35 01/31/18 07:35 98 21 98 Mechanical Ventilator 35 01/31/18 07:30 102 25 120/66 98 Mechanical Ventilator 35 01/31/18 07:29 97 21 35 01/31/18 07:00 101 25 143/72 98 Mechanical Ventilator 35 01/31/18 07:00 18 01/31/18 06:30 89 18 143/75 98 Mechanical Ventilator 35 01/31/18 06:00 18 01/31/18 06:00 89 18 134/73 98 Mechanical Ventilator 35 01/31/18 05:30 90 18 114/71 98 Mechanical Ventilator 35 01/31/18 05:15 90 16 35 01/31/18 05:00 92 16 141/72 98 Mechanical Ventilator 35 01/31/18 05:00 17 01/31/18 04:30 102 22 161/99 98 Mechanical Ventilator 35 01/31/18 04:00 35 01/31/18 04:00 20 01/31/18 04:00 91 17 134/84 99 Mechanical Ventilator 35 01/31/18 04:00 98.2 98.2 18 03:58 20 18 03:51 92 18 03:30 91 19 116/76 98 Mechanical Ventilator 35 18 03:05 94 18 35 18 03:00 96 20 137/83 99 Mechanical Ventilator 35 16/18 03:00 20 18 02:30 95 18 140/86 99 Mechanical Ventilator 35 18 02:00 17 01/31/18 02:00 92 17 133/83 98 Mechanical Ventilator 35 01/31/18 01:30 92 16 119/65 97 Mechanical Ventilator 35 18 01:02 96 18 99 Mechanical Ventilator 35 18 01:00 91 16 105/54 100 Mechanical Ventilator 35 18 01:00 16 01/31/18 00:52 96 18 98 Mechanical Ventilator 35 18 00:52 96 18 35 01/31/18 00:30 99 20 110/73 97 Mechanical Ventilator 35 01/31/18 00:00 23 01/31/18 00:00 98.7 106 23 136/78 99 Mechanical Ventilator 35 98.7 01/30/18 23:46 17 01/30/18 23:30 101 23 136/78 99 Mechanical Ventilator 35 01/30/18 23:30 101 01/30/18 23:00 89 17 105/67 97 Mechanical Ventilator 35 18 23:00 17 01/30/18 22:42 90 17 35 01/30/18 22:30 91 17 108/63 97 Mechanical Ventilator 35 01/30/18 22:00 18 01/30/18 22:00 94 17 111/61 97 Mechanical Ventilator 35 18 21:30 96 19 107/67 97 Mechanical Ventilator 35 18 21:25 97 21 35 18 21:00 92 18 128/66 98 Mechanical Ventilator 35 01/30/18 21:00 19 01/30/18 20:31 18 01/30/18 20:30 93 18 120/69 99 Mechanical Ventilator 35 18 20:00 35 18 20:00 24 01/30/18 20:00 98.5 92 18 129/69 99 Mechanical Ventilator 35 98.5 01/30/18 19:30 92 19 124/67 99 Mechanical Ventilator 35 18 19:23 95 01/30/18 19:11 90 16 99 Mechanical Ventilator 35 18 19:01 96 20 99 Mechanical Ventilator 35 18 19:01 96 20 35 18 19:00 92 18 113/62 98 Mechanical Ventilator 35 18 18:30 90 18 118/66 98 Mechanical Ventilator 35 18 18:00 88 17 115/68 98 Mechanical Ventilator 35 18 18:00 16 01/30/18 17:30 88 17 110/66 97 Mechanical Ventilator 35 01/30/18 17:00 98.7 92 19 112/66 97 Mechanical Ventilator 35 98.7 01/30/18 17:00 16 01/30/18 16:45 90 19 35 01/30/18 16:30 90 17 108/64 97 Mechanical Ventilator 35 01/30/18 16:22 98.8 01/30/18 16:00 35 01/30/18 16:00 90 20 110/60 97 Mechanical Ventilator 35 01/30/18 16:00 96 01/30/18 15:52 17 01/30/18 15:30 88 20 108/58 97 Mechanical Ventilator 35 01/30/18 15:00 89 20 107/56 97 Mechanical Ventilator 35 01/30/18 15:00 16 01/30/18 14:57 98 16 35 01/30/18 14:30 98.8 94 20 106/56 97 Mechanical Ventilator 35 98.8 01/30/18 14:00 16 01/30/18 14:00 95 20 109/59 97 Mechanical Ventilator 35 01/30/18 13:30 97 21 108/56 98 Mechanical Ventilator 35 01/30/18 13:18 87 16 99 Mechanical Ventilator 35 18 13:18 89 16 35 18 13:17 93 16 100 Mechanical Ventilator 35 01/30/18 13:00 16 01/30/18 13:00 95 21 127/74 98 Mechanical Ventilator 35 01/30/18 12:30 91 17 127/74 99 Mechanical Ventilator 35 01/30/18 12:00 35 01/30/18 12:00 92 01/30/18 12:00 17 01/30/18 12:00 93 17 126/70 97 Mechanical Ventilator 35 01/30/18 11:30 94 17 120/68 97 Mechanical Ventilator 35 4/15/18 11:09 95 17 35 01/30/18 11:00 92 17 114/68 97 Mechanical Ventilator 35 01/30/18 10:50 17 Status: sedated Condition: critical Neck: full ROM Lungs: chest wall tender Heart: HR/BP stable Abdomen: soft, active bowel sounds Extremities: no C/C/E Decubiti: location Micro: Microbiology Date/Time Source Procedure Growth Status 01/28/18 11:11 Sputum Gram Stain - Final Complete 01/28/18 11:11 Sputum Culture - Final Staphylococcus Aureus Complete Accucheck: 156 Critical Care - Subjective ROS Limited/Unobtainable: No Condition: critical EKG Rhythm: Sinus Rhythm FI02: 35 Vent Support Breath Rate: 16 Vent Support Mode: AC Vent Tidal Volume: 600 Sputum Amount: Moderate PEEP: 5.0 PIP: 27 Tube Feeding Amount: 42 I&O: Intake and Output 01/30/18 01/31/18 19:00 07:00 Intake Total 1082.0 ml 1707.5 ml Output Total 665 ml 950 ml Balance 417.0 ml 757.5 ml IV Total 832.0 ml 1327.5 ml Tube Feeding 250 ml 380 ml Output Urine Total 665 ml 950 ml CXR: RLL infiltrate ET-Tube: 7.5 ET Position: 24 Labs: Laboratory Tests Test 01/31/18 04:10 01/31/18 08:20 White Blood Count 10.1 K/UL (4.8-10.8) Red Blood Count 4.34 M/UL (4.70-6.10) L Hemoglobin 13.8 G/DL (14.2-18.0) L Hematocrit 38.9 % (42.0-52.0) L Mean Corpuscular Volume 90 FL (80-99) Mean Corpuscular Hemoglobin 31.8 PG (27.0-31.0) H Mean Corpuscular Hemoglobin Concent 35.5 G/DL (32.0-36.0) Red Cell Distribution Width 12.3 % (11.6-14.8) Platelet Count 256 K/UL (150-450) Mean Platelet Volume 7.3 FL (6.5-10.1) Neutrophils (%) (Auto) % (45.0-75.0) Lymphocytes (%) (Auto) % (20.0-45.0) Monocytes (%) (Auto) % (1.0-10.0) Eosinophils (%) (Auto) % (0.0-3.0) Basophils (%) (Auto) % (0.0-2.0) Differential Total Cells Counted 100 Neutrophils % (Manual) 87 % (45-75) H Lymphocytes % (Manual) 6 % (20-45) L Monocytes % (Manual) 7 % (1-10) Eosinophils % (Manual) 0 % (0-3) Basophils % (Manual) 0 % (0-2) Band Neutrophils 0 % (0-8) Platelet Estimate Adequate Platelet Morphology Normal Red Blood Cell Morphology Normal Sodium Level 136 MMOL/L (136-145) Potassium Level 4.0 MMOL/L (3.5-5.1) Chloride Level 102 MMOL/L (98-107) Carbon Dioxide Level 27 MMOL/L (21-32) Anion Gap 7 mmol/L (5-15) Blood Urea Nitrogen 21 mg/dL (7-18) H Creatinine 1.1 MG/DL (0.55-1.30) Estimat Glomerular Filtration Rate > 60 mL/min (>60) Glucose Level 173 MG/DL (74-106) H Calcium Level 9.1 MG/DL (8.5-10.1) Phosphorus Level 3.0 MG/DL (2.5-4.9) Magnesium Level 2.3 MG/DL (1.8-2.4) Total Bilirubin 0.5 MG/DL (0.2-1.0) Aspartate Amino Transf (AST/SGOT) 14 U/L (15-37) L Alanine Aminotransferase (ALT/SGPT) 44 U/L (12-78) Alkaline Phosphatase 53 U/L (46-116) Total Protein 6.7 G/DL (6.4-8.2) Albumin 3.1 G/DL (3.4-5.0) L Globulin 3.6 g/dL Albumin/Globulin Ratio 0.9 (1.0-2.7) L Arterial Blood pH 7.411 (7.350-7.450) Arterial Blood Partial Pressure CO2 44.8 mmHg (35.0-45.0) Arterial Blood Partial Pressure O2 94.3 mmHg (75.0-100.0) Arterial Blood HCO3 27.8 mmol/L (22.0-26.0) H Arterial Blood Oxygen Saturation 97.0 % (92.0-98.0) Arterial Blood Base Excess 2.7 Alin Test Positive Ahsan Wu MD Jan 31, 2018 10:46
[2018-01-31] MEDS ORDERED: Lidocaine 1% Plain 30 ml INJ SCH (12:00)
[2018-01-31] MEDS ORDERED: Heparin 2000 units/Ns 1000ml IV SCH (12:00)
[2018-01-31] MEDS ORDERED: Haloperidol Lactate 5 MG in D5W 55 ML IVPB PRN (12:15)
--- NOTE | 2018-01-31 13:44 | Internal Med Progress Note ---
Subjective Date of Service: Jan 31, 2018 Physician Name April Heath Attending Physician Fam Joe MD Current Medications Medications (Trade) Dose Ordered Sig/Shereen Route PRN Reason Start Time Stop Time Status Last Admin Dose Admin Albuterol Sulfate (Proventil) 2.5 mg Q6HRT HHN 01/28/18 13:00 02/02/18 12:59 01/31/18 07:42 Albuterol/ Ipratropium (Albuterol/ Ipratropium) 3 ml Q4H PRN HHN Shortness of Breath 01/28/18 11:00 02/02/18 10:59 Chlorhexidine Gluconate (Dari-Hex 2%) 1 applic DAILY@2000 TOPIC 01/29/18 20:00 02/28/18 19:59 01/30/18 20:05 Dextrose (Dextrose 50%) 25 ml STAT PRN IV Hypoglycemia 01/28/18 10:45 02/27/18 10:44 Haloperidol Lactate 5 mg/ Dextrose 56 ml @ 224 mls/hr EVERY HOUR PRN IVPB AGITATION 01/31/18 12:15 03/02/18 12:14 Heparin Sodium (Porcine) (Heparin 5000 units/ml) 5,000 units EVERY 12 HOURS SUBQ 01/28/18 21:00 02/27/18 20:59 01/31/18 08:46 Insulin Aspart (NovoLOG) BEFORE MEALS AND HS SUBQ 01/28/18 11:30 02/27/18 11:29 01/31/18 11:30 Lorazepam (Ativan 2mg/ml 1ml) 2 mg Q4H PRN IV For Anxiety 01/28/18 11:00 02/04/18 10:59 01/31/18 02:58 Methylprednisolone Sodium Succinate (Solu-MEDROL) 60 mg EVERY 8 HOURS IV 01/31/18 14:00 02/27/18 11:59 Midazolam HCl 100 ml @ 0 mls/hr Q24H PRN IVPB To Patient Comfort 01/28/18 11:00 02/04/18 10:59 01/31/18 09:28 Morphine Sulfate (Morphine Sulfate) 2 mg Q4H PRN IVP Moderate Pain (Pain Scale 4-6) 01/28/18 11:30 02/04/18 10:59 Morphine Sulfate (Morphine Sulfate) 4 mg Q4H PRN IVP Severe Pain (Pain Scale 7-10) 01/28/18 10:30 02/04/18 10:29 01/31/18 09:56 Nitroglycerin (Ntg) 0.4 mg Q5M X 3 DOSES PRN SL Prn Chest Pain 01/28/18 11:00 02/27/18 10:59 Ondansetron HCl (Zofran) 4 mg Q6H PRN IVP Nausea & Vomiting 01/28/18 11:00 02/27/18 10:59 Pantoprazole (Protonix) 40 mg DAILY IV 01/29/18 09:00 02/28/18 08:59 01/31/18 08:45 Piperacillin Sod/ Tazobactam Sod 3.375 gm/Dextrose 110 ml @ 27.5 mls/hr Q8H IVPB 01/28/18 12:00 02/04/18 11:59 01/31/18 12:01 Allergies: Coded Allergies: No Known Allergies (Unverified , 01/28/18) ROS Limited/Unobtainable: Yes Subjective 62 YO M admitted with Respiratory failure. Now pneumonia. Intubated and sedated. Cover for Int Med-Dr Joe. ICU Objective Last Vital Signs Date Time Temp Pulse Resp B/P (MAP) Pulse Ox O2 Delivery O2 Flow Rate FiO2 01/31/18 13:00 90 19 130/60 97 Mechanical Ventilator 35 01/31/18 12:00 98.8 98.8 Laboratory Tests Test 01/31/18 04:10 01/31/18 08:20 White Blood Count 10.1 K/UL (4.8-10.8) Red Blood Count 4.34 M/UL (4.70-6.10) L Hemoglobin 13.8 G/DL (14.2-18.0) L Hematocrit 38.9 % (42.0-52.0) L Mean Corpuscular Volume 90 FL (80-99) Mean Corpuscular Hemoglobin 31.8 PG (27.0-31.0) H Mean Corpuscular Hemoglobin Concent 35.5 G/DL (32.0-36.0) Red Cell Distribution Width 12.3 % (11.6-14.8) Platelet Count 256 K/UL (150-450) Mean Platelet Volume 7.3 FL (6.5-10.1) Neutrophils (%) (Auto) % (45.0-75.0) Lymphocytes (%) (Auto) % (20.0-45.0) Monocytes (%) (Auto) % (1.0-10.0) Eosinophils (%) (Auto) % (0.0-3.0) Basophils (%) (Auto) % (0.0-2.0) Differential Total Cells Counted 100 Neutrophils % (Manual) 87 % (45-75) H Lymphocytes % (Manual) 6 % (20-45) L Monocytes % (Manual) 7 % (1-10) Eosinophils % (Manual) 0 % (0-3) Basophils % (Manual) 0 % (0-2) Band Neutrophils 0 % (0-8) Platelet Estimate Adequate Platelet Morphology Normal Red Blood Cell Morphology Normal Sodium Level 136 MMOL/L (136-145) Potassium Level 4.0 MMOL/L (3.5-5.1) Chloride Level 102 MMOL/L (98-107) Carbon Dioxide Level 27 MMOL/L (21-32) Anion Gap 7 mmol/L (5-15) Blood Urea Nitrogen 21 mg/dL (7-18) H Creatinine 1.1 MG/DL (0.55-1.30) Estimat Glomerular Filtration Rate > 60 mL/min (>60) Glucose Level 173 MG/DL (74-106) H Calcium Level 9.1 MG/DL (8.5-10.1) Phosphorus Level 3.0 MG/DL (2.5-4.9) Magnesium Level 2.3 MG/DL (1.8-2.4) Total Bilirubin 0.5 MG/DL (0.2-1.0) Aspartate Amino Transf (AST/SGOT) 14 U/L (15-37) L Alanine Aminotransferase (ALT/SGPT) 44 U/L (12-78) Alkaline Phosphatase 53 U/L (46-116) Total Protein 6.7 G/DL (6.4-8.2) Albumin 3.1 G/DL (3.4-5.0) L Globulin 3.6 g/dL Albumin/Globulin Ratio 0.9 (1.0-2.7) L Arterial Blood pH 7.411 (7.350-7.450) Arterial Blood Partial Pressure CO2 44.8 mmHg (35.0-45.0) Arterial Blood Partial Pressure O2 94.3 mmHg (75.0-100.0) Arterial Blood HCO3 27.8 mmol/L (22.0-26.0) H Arterial Blood Oxygen Saturation 97.0 % (92.0-98.0) Arterial Blood Base Excess 2.7 Alin Test Positive Intake and Output 01/30/18 01/31/18 19:00 07:00 Intake Total 1082.0 ml 1707.5 ml Output Total 665 ml 950 ml Balance 417.0 ml 757.5 ml IV Total 832.0 ml 1327.5 ml Tube Feeding 250 ml 380 ml Output Urine Total 665 ml 950 ml Objective General Appearance: WD/WN, moderate distress EENT: PERRL/EOMI, normal ENT inspection Neck: non-tender, normal alignment, supple Cardiovascular: normal peripheral pulses, normal rate, regular rhythm, no gallop/murmur, no JVD Respiratory/Chest: Mech vent; respiratory distress, crackles/rales, rhonchi - bilaterally, expiratory wheezing Abdomen: normal bowel sounds, non tender, soft, no organomegaly, no mass 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 (2) Leukocytosis (3) Asthma (4) Abdominal pain (5) Respiratory distress (6) Acute respiratory failure Assessment & Plan: Continue vent per pulmonary; weaning protocol APRIL HEATH Jan 31, 2018 13:44
--- NOTE | 2018-01-31 18:37 | Infectious Diseases Prog Note ---
Assessment/Plan Assessment/Plan ASSESSMENT: The patient is a 62-year-old male with: Probable aspiration pneumonia. Scx: MSSA 01/31 SCx: Bibasilar atelectasis and possible consolidation, new/increased since previous day's exam Asthma. Ventilator-dependent respiratory failure. Leukocytosis, SP Asthma. PLAN: on IV Zosyn day # 3 , change to Ancef d# 1 / 14 , Flagyl d# 1 / ( Aspiration ) Monitor CBC and BMP. Monitor cultures (blood, urine,). Monitor chest x-ray. Subjective Constitutional: Denies: no symptoms, fever, chills, fatigue, anorexia, drenching sweats, other Allergies: Coded Allergies: No Known Allergies (Unverified , 01/28/18) Objective Vital Signs Last 24 Hour Vital Signs Date Time Temp Pulse Resp B/P (MAP) Pulse Ox O2 Delivery O2 Flow Rate FiO2 01/31/18 18:00 88 19 137/89 98 Nasal Cannula 2.0 01/31/18 17:00 94 19 118/67 98 Mechanical Ventilator 01/31/18 16:20 97 Nasal Cannula 3.0 32 01/31/18 16:15 Nasal Cannula 3.0 32 01/31/18 16:15 Nasal Cannula 3.0 32 01/31/18 16:00 98.8 88 19 133/77 98 Mechanical Ventilator 98.8 01/31/18 16:00 88 01/31/18 15:14 98 19 35 01/31/18 15:00 87 19 120/67 98 Mechanical Ventilator 01/31/18 14:05 100 20 01/31/18 14:00 18 01/31/18 14:00 95 18 110/66 98 Mechanical Ventilator 01/31/18 13:59 98 18 99 Mechanical Ventilator 35 01/31/18 13:50 100 19 100 Mechanical Ventilator 35 01/31/18 13:30 97 17 104/63 98 Mechanical Ventilator 35 01/31/18 13:00 90 19 130/60 97 Mechanical Ventilator 35 01/31/18 13:00 20 01/31/18 12:50 93 18 35 01/31/18 12:30 91 19 122/56 97 Mechanical Ventilator 35 01/31/18 12:01 17 01/31/18 12:00 98.8 94 19 119/63 97 Mechanical Ventilator 35 98.8 4/16/18 12:00 94 4/16/18 12:00 35 4/16/18 11:30 93 19 120/55 97 Mechanical Ventilator 35 4/16/18 11:29 94 22 35 4/16/18 11:00 92 19 121/58 97 Mechanical Ventilator 35 4/16/18 11:00 18 16/18 10:30 94 19 111/59 97 Mechanical Ventilator 35 4/16/18 10:00 95 19 109/59 97 Mechanical Ventilator 35 4/16/18 10:00 22 16/18 09:30 97 20 137/75 99 Mechanical Ventilator 35 /16/18 09:28 22 16/18 09:01 104 21 35 /16/18 09:00 104 25 118/67 98 Mechanical Ventilator 35 /16/18 08:30 101 24 123/65 96 Mechanical Ventilator 35 /16/18 08:00 92 18 08:00 98.8 103 22 114/66 97 Mechanical Ventilator 35 98.8 01/31/18 08:00 20 18 08:00 35 16/18 07:47 95 18 99 Mechanical Ventilator 35 16/18 07:35 98 21 98 Mechanical Ventilator 35 /16/18 07:30 102 25 120/66 98 Mechanical Ventilator 35 /16/18 07:29 97 21 35 16/18 07:00 101 25 143/72 98 Mechanical Ventilator 35 /16/18 07:00 18 16/18 06:30 89 18 143/75 98 Mechanical Ventilator 35 /16/18 06:00 18 01/31/18 06:00 89 18 134/73 98 Mechanical Ventilator 35 16/18 05:30 90 18 114/71 98 Mechanical Ventilator 35 4/16/18 05:15 90 16 35 4/16/18 05:00 92 16 141/72 98 Mechanical Ventilator 35 4/16/18 05:00 17 18 04:30 102 22 161/99 98 Mechanical Ventilator 35 16/18 04:00 35 /16/18 04:00 20 1618 04:00 91 17 134/84 99 Mechanical Ventilator 35 /16/18 04:00 98.2 98.2 18 03:58 20 18 03:51 92 18 03:30 91 19 116/76 98 Mechanical Ventilator 35 16/18 03:05 94 18 35 1618 03:00 96 20 137/83 99 Mechanical Ventilator 35 16/18 03:00 20 01/31/18 02:30 95 18 140/86 99 Mechanical Ventilator 35 16/18 02:00 17 01/31/18 02:00 92 17 133/83 98 Mechanical Ventilator 35 16/18 01:30 92 16 119/65 97 Mechanical Ventilator 35 18 01:02 96 18 99 Mechanical Ventilator 35 16/18 01:00 91 16 105/54 100 Mechanical Ventilator 35 16/18 01:00 16 01/31/18 00:52 96 18 98 Mechanical Ventilator 35 18 00:52 96 18 35 01/31/18 00:30 99 20 110/73 97 Mechanical Ventilator 35 18 00:00 23 01/31/18 00:00 98.7 106 23 136/78 99 Mechanical Ventilator 35 98.7 01/30/18 23:46 17 01/30/18 23:30 101 23 136/78 99 Mechanical Ventilator 35 18 23:30 101 01/30/18 23:00 89 17 105/67 97 Mechanical Ventilator 35 01/30/18 23:00 17 01/30/18 22:42 90 17 35 01/30/18 22:30 91 17 108/63 97 Mechanical Ventilator 35 18 22:00 18 01/30/18 22:00 94 17 111/61 97 Mechanical Ventilator 35 01/30/18 21:30 96 19 107/67 97 Mechanical Ventilator 35 01/30/18 21:25 97 21 35 18 21:00 92 18 128/66 98 Mechanical Ventilator 35 18 21:00 19 18 20:31 18 01/30/18 20:30 93 18 120/69 99 Mechanical Ventilator 35 18 20:00 35 01/30/18 20:00 24 01/30/18 20:00 98.5 92 18 129/69 99 Mechanical Ventilator 35 98.5 18 19:30 92 19 124/67 99 Mechanical Ventilator 35 18 19:23 95 01/30/18 19:11 90 16 99 Mechanical Ventilator 35 01/30/18 19:01 96 20 99 Mechanical Ventilator 35 01/30/18 19:01 96 20 35 01/30/18 19:00 92 18 113/62 98 Mechanical Ventilator 35 Height (Feet): 5 Height (Inches): 11.00 Weight (Pounds): 230 HEENT: anicteric Respiratory/Chest: normal breath sounds Cardiovascular: regular rhythm Abdomen: no organomegaly Laboratory Tests Test 01/31/18 04:10 01/31/18 08:20 01/31/18 15:05 White Blood Count 10.1 K/UL (4.8-10.8) Red Blood Count 4.34 M/UL (4.70-6.10) L Hemoglobin 13.8 G/DL (14.2-18.0) L Hematocrit 38.9 % (42.0-52.0) L Mean Corpuscular Volume 90 FL (80-99) Mean Corpuscular Hemoglobin 31.8 PG (27.0-31.0) H Mean Corpuscular Hemoglobin Concent 35.5 G/DL (32.0-36.0) Red Cell Distribution Width 12.3 % (11.6-14.8) Platelet Count 256 K/UL (150-450) Mean Platelet Volume 7.3 FL (6.5-10.1) Neutrophils (%) (Auto) % (45.0-75.0) Lymphocytes (%) (Auto) % (20.0-45.0) Monocytes (%) (Auto) % (1.0-10.0) Eosinophils (%) (Auto) % (0.0-3.0) Basophils (%) (Auto) % (0.0-2.0) Differential Total Cells Counted 100 Neutrophils % (Manual) 87 % (45-75) H Lymphocytes % (Manual) 6 % (20-45) L Monocytes % (Manual) 7 % (1-10) Eosinophils % (Manual) 0 % (0-3) Basophils % (Manual) 0 % (0-2) Band Neutrophils 0 % (0-8) Platelet Estimate Adequate Platelet Morphology Normal Red Blood Cell Morphology Normal Sodium Level 136 MMOL/L (136-145) Potassium Level 4.0 MMOL/L (3.5-5.1) Chloride Level 102 MMOL/L (98-107) Carbon Dioxide Level 27 MMOL/L (21-32) Anion Gap 7 mmol/L (5-15) Blood Urea Nitrogen 21 mg/dL (7-18) H Creatinine 1.1 MG/DL (0.55-1.30) Estimat Glomerular Filtration Rate > 60 mL/min (>60) Glucose Level 173 MG/DL (74-106) H Calcium Level 9.1 MG/DL (8.5-10.1) Phosphorus Level 3.0 MG/DL (2.5-4.9) Magnesium Level 2.3 MG/DL (1.8-2.4) Total Bilirubin 0.5 MG/DL (0.2-1.0) Aspartate Amino Transf (AST/SGOT) 14 U/L (15-37) L Alanine Aminotransferase (ALT/SGPT) 44 U/L (12-78) Alkaline Phosphatase 53 U/L (46-116) Total Protein 6.7 G/DL (6.4-8.2) Albumin 3.1 G/DL (3.4-5.0) L Globulin 3.6 g/dL Albumin/Globulin Ratio 0.9 (1.0-2.7) L Arterial Blood pH 7.411 (7.350-7.450) 7.423 (7.350-7.450) Arterial Blood Partial Pressure CO2 44.8 mmHg (35.0-45.0) 42.5 mmHg (35.0-45.0) Arterial Blood Partial Pressure O2 94.3 mmHg (75.0-100.0) 100.0 mmHg (75.0-100.0) Arterial Blood HCO3 27.8 mmol/L (22.0-26.0) H 27.1 mmol/L (22.0-26.0) H Arterial Blood Oxygen Saturation 97.0 % (92.0-98.0) 97.2 % (92.0-98.0) Arterial Blood Base Excess 2.7 2.4 Alin Test Positive Positive Current Medications Medications (Trade) Dose Ordered Sig/Shereen Route PRN Reason Start Time Stop Time Status Last Admin Dose Admin Albuterol Sulfate (Proventil) 2.5 mg Q6HRT HHN 01/28/18 13:00 02/02/18 12:59 01/31/18 13:59 Albuterol/ Ipratropium (Albuterol/ Ipratropium) 3 ml Q4H PRN HHN Shortness of Breath 01/28/18 11:00 02/02/18 10:59 Chlorhexidine Gluconate (Dari-Hex 2%) 1 applic DAILY@2000 TOPIC 01/29/18 20:00 02/28/18 19:59 01/30/18 20:05 Dextrose (Dextrose 50%) 25 ml STAT PRN IV Hypoglycemia 01/28/18 10:45 02/27/18 10:44 Haloperidol Lactate 5 mg/ Dextrose 56 ml @ 224 mls/hr EVERY HOUR PRN IVPB AGITATION 01/31/18 12:15 03/02/18 12:14 Heparin Sodium (Porcine) (Heparin 5000 units/ml) 5,000 units EVERY 12 HOURS SUBQ 01/28/18 21:00 02/27/18 20:59 01/31/18 08:46 Insulin Aspart (NovoLOG) BEFORE MEALS AND HS SUBQ 01/28/18 11:30 02/27/18 11:29 01/31/18 16:41 Lorazepam (Ativan 2mg/ml 1ml) 2 mg Q4H PRN IV For Anxiety 01/28/18 11:00 02/04/18 10:59 01/31/18 02:58 Methylprednisolone Sodium Succinate (Solu-MEDROL) 60 mg EVERY 8 HOURS IV 01/31/18 14:00 02/27/18 11:59 01/31/18 15:09 Midazolam HCl 100 ml @ 0 mls/hr Q24H PRN IVPB To Patient Comfort 01/28/18 11:00 02/04/18 10:59 01/31/18 09:28 Morphine Sulfate (Morphine Sulfate) 2 mg Q4H PRN IVP Moderate Pain (Pain Scale 4-6) 01/28/18 11:30 02/04/18 10:59 Morphine Sulfate (Morphine Sulfate) 4 mg Q4H PRN IVP Severe Pain (Pain Scale 7-10) 01/28/18 10:30 02/04/18 10:29 01/31/18 09:56 Nitroglycerin (Ntg) 0.4 mg Q5M X 3 DOSES PRN SL Prn Chest Pain 01/28/18 11:00 02/27/18 10:59 Ondansetron HCl (Zofran) 4 mg Q6H PRN IVP Nausea & Vomiting 01/28/18 11:00 02/27/18 10:59 Pantoprazole (Protonix) 40 mg DAILY IV 01/29/18 09:00 02/28/18 08:59 01/31/18 08:45 Piperacillin Sod/ Tazobactam Sod 3.375 gm/Dextrose 110 ml @ 27.5 mls/hr Q8H IVPB 01/28/18 12:00 02/04/18 11:59 01/31/18 12:01 Mike Domingo MD Jan 31, 2018 18:37
[2018-01-31] MEDS: Dyna-Hex 2% Top Sol 2oz TOPIC SCH (20:41)
[2018-01-31] MEDS: ceFAZolin sod 1 GM in NS 55 ML IVPB SCH (20:41)
[2018-02-01] VITALS (21 sets, daily range): BP systolic 117–192; BP diastolic 58–158
[2018-02-01] MEDS: Albuterol ud Inhalation HHN SCH ×4 (01:15→20:05)
[2018-02-01] MEDS: ceFAZolin sod 1 GM in NS 55 ML IVPB SCH ×3 (04:00→20:02)
[2018-02-01] MEDS: NovoLOG Insulin Flexpen SUBQ SCH ×4 (05:36→20:37)
[2018-02-01] MEDS: Solu-MEDROL 125mg Inj IV SCH ×3 (05:36→21:45)
[2018-02-01] MEDS: LORazepam Inj 2mg/ml 1ml IV PRN ×3 (05:37→20:30)
[2018-02-01] MEDS: Morphine Sulfate 4mg/ml Inj IVP PRN ×4 (05:37→20:32)
[2018-02-01 07:07] LABS: HEMATOCRIT 41.7 % (42.0-52.0); HEMOGLOBIN 14.6 G/DL (14.2-18.0); MEAN CORPUSCULAR VOLUME 89 FL (80-99); PLATELET COUNT 239 K/UL (150-450); RED BLOOD COUNT 4.66 M/UL (4.70-6.10); RED CELL DISTRIBUTION WIDTH 12.2 % (11.6-14.8); WHITE BLOOD COUNT 12.1 K/UL (4.8-10.8)
[2018-02-01 07:25] LABS: ALANINE AMINOTRANSFERASE 96 U/L (12-78); ALBUMIN 3.4 G/DL (3.4-5.0); ALKALINE PHOSPHATASE 60 U/L (46-116); ANION GAP 4 mmol/L (5-15); ASPARTATE AMINO TRANSFERASE 32 U/L (15-37); BILIRUBIN,TOTAL 0.7 MG/DL (0.2-1.0); BLOOD UREA NITROGEN 26 mg/dL (7-18); CALCIUM 8.8 MG/DL (8.5-10.1); CARBON DIOXIDE 31 MMOL/L (21-32); CHLORIDE 102 MMOL/L (98-107); PHOSPHORUS 4.7 MG/DL (2.5-4.9); POTASSIUM 4.8 MMOL/L (3.5-5.1); SODIUM 137 MMOL/L (136-145)
[2018-02-01] MEDS: Pantoprazole Inj IV SCH (09:49)
[2018-02-01] MEDS: Heparin 5000 units/ml inj SUBQ SCH ×2 (10:11→20:02)
--- NOTE | 2018-02-01 11:42 | Infectious Diseases Prog Note ---
Assessment/Plan Assessment/Plan ASSESSMENT: The patient is a 62-year-old male with: Probable aspiration pneumonia. Scx: MSSA 01/31 SCx: Bibasilar atelectasis and possible consolidation, new/increased since previous day's exam Asthma. Leukocytosis, mild ( on steroids ) Ventilator-dependent respiratory failure., Extub 01/31 Asthma. PLAN: on IV Ancef d# 2 / 14 , Flagyl d# 2 / 5 ( Aspiration ) 01/31 SP Zosyn day # 3 Monitor CBC and BMP. Monitor cultures (blood, ) Monitor chest x-ray. Subjective Constitutional: Denies: no symptoms, fever, chills, fatigue, anorexia, drenching sweats, other Allergies: Coded Allergies: No Known Allergies (Unverified , 01/28/18) Objective Vital Signs Last 24 Hour Vital Signs Date Time Temp Pulse Resp B/P (MAP) Pulse Ox O2 Delivery O2 Flow Rate FiO2 02/01/18 11:00 90 16 121/70 98 Nasal Cannula 2.0 02/01/18 10:00 90 16 121/70 98 Nasal Cannula 2.0 02/01/18 09:00 91 17 122/64 98 Nasal Cannula 2.0 02/01/18 08:00 100 02/01/18 08:00 98.6 97 22 117/58 98 Nasal Cannula 2.0 98.6 02/01/18 07:40 101 23 100 Nasal Cannula 2.0 28 02/01/18 07:35 Nasal Cannula 2.0 28 02/01/18 07:25 106 25 99 Nasal Cannula 2.0 28 02/01/18 07:24 99 Nasal Cannula 2.0 28 02/01/18 07:00 105 19 154/106 96 Nasal Cannula 2.0 02/01/18 06:00 100 19 152/75 96 Nasal Cannula 2.0 02/01/18 05:00 114 19 189/82 96 Nasal Cannula 2.0 02/01/18 04:00 97.9 117 19 192/100 96 Nasal Cannula 2.0 97.9 02/01/18 04:00 20 02/01/18 04:00 97 02/01/18 03:00 22 02/01/18 03:00 99 19 128/62 96 Nasal Cannula 2.0 02/01/18 02:00 89 19 134/65 96 Nasal Cannula 2.0 02/01/18 02:00 20 02/01/18 01:34 Nasal Cannula 02/01/18 01:34 Nasal Cannula 02/01/18 01:30 98 19 132/67 98 Nasal Cannula 2.0 02/01/18 01:00 90 19 131/70 98 Nasal Cannula 2.0 02/01/18 01:00 18 18 00:30 92 19 131/70 98 Nasal Cannula 2.0 02/01/18 00:00 91 02/01/18 00:00 98.5 101 22 180/158 98 Nasal Cannula 2.0 98.5 02/01/18 00:00 22 01/31/18 23:30 100 21 153/85 98 Nasal Cannula 2.0 01/31/18 23:00 16 01/31/18 23:00 99 21 145/89 96 Nasal Cannula 2.0 01/31/18 22:45 22 01/31/18 22:00 104 21 156/77 97 Nasal Cannula 2.0 01/31/18 21:00 98 21 149/90 97 Nasal Cannula 2.0 01/31/18 20:45 89 19 98 Nasal Cannula 2.0 28 01/31/18 20:35 28 01/31/18 20:29 89 19 98 Nasal Cannula 2.0 28 01/31/18 20:00 98.6 99 20 161/60 98 Nasal Cannula 2.0 98.6 01/31/18 20:00 97 01/31/18 19:00 89 19 125/80 98 Nasal Cannula 2.0 01/31/18 18:00 88 19 137/89 98 Nasal Cannula 2.0 01/31/18 17:00 94 19 118/67 98 Mechanical Ventilator 01/31/18 16:20 97 Nasal Cannula 3.0 32 01/31/18 16:15 Nasal Cannula 3.0 32 18 16:15 Nasal Cannula 3.0 32 01/31/18 16:00 98.8 88 19 133/77 98 Mechanical Ventilator 98.8 01/31/18 16:00 88 01/31/18 15:14 98 19 35 01/31/18 15:00 87 19 120/67 98 Mechanical Ventilator 01/31/18 14:05 100 20 01/31/18 14:00 18 01/31/18 14:00 95 18 110/66 98 Mechanical Ventilator 01/31/18 13:59 98 18 99 Mechanical Ventilator 35 01/31/18 13:50 100 19 100 Mechanical Ventilator 35 01/31/18 13:30 97 17 104/63 98 Mechanical Ventilator 35 01/31/18 13:00 90 19 130/60 97 Mechanical Ventilator 35 01/31/18 13:00 20 01/31/18 12:50 93 18 35 01/31/18 12:30 91 19 122/56 97 Mechanical Ventilator 35 01/31/18 12:01 17 01/31/18 12:00 98.8 94 19 119/63 97 Mechanical Ventilator 35 98.8 01/31/18 12:00 94 01/31/18 12:00 35 Height (Feet): 5 Height (Inches): 11.00 Weight (Pounds): 234 HEENT: mucous membranes moist Respiratory/Chest: no respiratory distress Cardiovascular: regular rhythm Abdomen: no organomegaly Laboratory Tests Test 01/31/18 15:05 01/31/18 22:00 02/01/18 06:50 02/01/18 08:20 Arterial Blood pH 7.423 (7.350-7.450) 7.411 (7.350-7.450) Arterial Blood Partial Pressure CO2 42.5 mmHg (35.0-45.0) 46.8 mmHg (35.0-45.0) H Arterial Blood Partial Pressure O2 100.0 mmHg (75.0-100.0) 82.3 mmHg (75.0-100.0) Arterial Blood HCO3 27.1 mmol/L (22.0-26.0) H 29.1 mmol/L (22.0-26.0) H Arterial Blood Oxygen Saturation 97.2 % (92.0-98.0) 95.9 % (92.0-98.0) Arterial Blood Base Excess 2.4 3.7 Alin Test Positive Positive Stool Occult Blood Pending White Blood Count 12.1 K/UL (4.8-10.8) H Red Blood Count 4.66 M/UL (4.70-6.10) L Hemoglobin 14.6 G/DL (14.2-18.0) Hematocrit 41.7 % (42.0-52.0) L Mean Corpuscular Volume 89 FL (80-99) Mean Corpuscular Hemoglobin 31.3 PG (27.0-31.0) H Mean Corpuscular Hemoglobin Concent 35.0 G/DL (32.0-36.0) Red Cell Distribution Width 12.2 % (11.6-14.8) Platelet Count 239 K/UL (150-450) Mean Platelet Volume 7.6 FL (6.5-10.1) Neutrophils (%) (Auto) % (45.0-75.0) Lymphocytes (%) (Auto) % (20.0-45.0) Monocytes (%) (Auto) % (1.0-10.0) Eosinophils (%) (Auto) % (0.0-3.0) Basophils (%) (Auto) % (0.0-2.0) Differential Total Cells Counted 100 Neutrophils % (Manual) 83 % (45-75) H Lymphocytes % (Manual) 5 % (20-45) L Monocytes % (Manual) 12 % (1-10) H Eosinophils % (Manual) 0 % (0-3) Basophils % (Manual) 0 % (0-2) Band Neutrophils 0 % (0-8) Platelet Estimate Adequate Platelet Morphology Normal Red Blood Cell Morphology Normal Sodium Level 137 MMOL/L (136-145) Potassium Level 4.8 MMOL/L (3.5-5.1) Chloride Level 102 MMOL/L (98-107) Carbon Dioxide Level 31 MMOL/L (21-32) Anion Gap 4 mmol/L (5-15) L Blood Urea Nitrogen 26 mg/dL (7-18) H Creatinine 1.0 MG/DL (0.55-1.30) Estimat Glomerular Filtration Rate > 60 mL/min (>60) Glucose Level 120 MG/DL (74-106) H Calcium Level 8.8 MG/DL (8.5-10.1) Phosphorus Level 4.7 MG/DL (2.5-4.9) Magnesium Level 2.5 MG/DL (1.8-2.4) H Total Bilirubin 0.7 MG/DL (0.2-1.0) Aspartate Amino Transf (AST/SGOT) 32 U/L (15-37) Alanine Aminotransferase (ALT/SGPT) 96 U/L (12-78) H Alkaline Phosphatase 60 U/L (46-116) Total Protein 6.8 G/DL (6.4-8.2) Albumin 3.4 G/DL (3.4-5.0) Globulin 3.4 g/dL Albumin/Globulin Ratio 1.0 (1.0-2.7) Vancomycin Level Trough 5.3 ug/mL (5.0-12.0) Current Medications Medications (Trade) Dose Ordered Sig/Shereen Route PRN Reason Start Time Stop Time Status Last Admin Dose Admin Albuterol Sulfate (Proventil) 2.5 mg Q6HRT HHN 01/28/18 13:00 02/02/18 12:59 02/01/18 07:32 Albuterol/ Ipratropium (Albuterol/ Ipratropium) 3 ml Q4H PRN HHN Shortness of Breath 01/28/18 11:00 02/02/18 10:59 Cefazolin Sodium 1 gm/Sodium Chloride 55 ml @ 110 mls/hr Q8H IVPB 01/31/18 20:00 02/07/18 23:59 02/01/18 04:00 Chlorhexidine Gluconate (Dari-Hex 2%) 1 applic DAILY@2000 TOPIC 01/29/18 20:00 02/28/18 19:59 01/31/18 20:41 Dextrose (Dextrose 50%) 25 ml STAT PRN IV Hypoglycemia 01/28/18 10:45 02/27/18 10:44 Haloperidol Lactate 5 mg/ Dextrose 56 ml @ 224 mls/hr EVERY HOUR PRN IVPB AGITATION 01/31/18 12:15 03/02/18 12:14 01/31/18 22:43 Heparin Sodium (Porcine) (Heparin 5000 units/ml) 5,000 units EVERY 12 HOURS SUBQ 01/28/18 21:00 02/27/18 20:59 02/01/18 10:11 Insulin Aspart (NovoLOG) BEFORE MEALS AND HS SUBQ 01/28/18 11:30 02/27/18 11:29 01/31/18 16:41 Lorazepam (Ativan 2mg/ml 1ml) 2 mg Q4H PRN IV For Anxiety 01/28/18 11:00 02/04/18 10:59 02/01/18 05:37 Methylprednisolone Sodium Succinate (Solu-MEDROL) 60 mg EVERY 8 HOURS IV 01/31/18 14:00 02/27/18 11:59 02/01/18 05:36 Metronidazole 100 ml @ 100 mls/hr Q8H IVPB 01/31/18 20:30 02/07/18 23:59 02/01/18 04:30 Midazolam HCl 100 ml @ 0 mls/hr Q24H PRN IVPB To Patient Comfort 01/28/18 11:00 02/04/18 10:59 01/31/18 22:45 Morphine Sulfate (Morphine Sulfate) 2 mg Q4H PRN IVP Moderate Pain (Pain Scale 4-6) 01/28/18 11:30 02/04/18 10:59 Morphine Sulfate (Morphine Sulfate) 4 mg Q4H PRN IVP Severe Pain (Pain Scale 7-10) 01/28/18 10:30 02/04/18 10:29 02/01/18 05:37 Nitroglycerin (Ntg) 0.4 mg Q5M X 3 DOSES PRN SL Prn Chest Pain 01/28/18 11:00 02/27/18 10:59 Ondansetron HCl (Zofran) 4 mg Q6H PRN IVP Nausea & Vomiting 01/28/18 11:00 02/27/18 10:59 Pantoprazole (Protonix) 40 mg DAILY IV 01/29/18 09:00 02/28/18 08:59 02/01/18 09:49 Mike Domingo MD Feb 01, 2018 11:42
--- NOTE | 2018-02-01 11:49 | Diagnostic Imaging Report ---
Indications: Needs long-term IV access Technique: Procedure performed at bedside. Procedural timeout performed. Ultrasound confirms patent compressible right basilic vein. Total sterile technique, including sterile probe cover and sterile gel, sterile gloves, hand hygiene, hat, mask,, sterile gown, large sterile drape, and preparation with 2% chlorhexidine utilized. Local anesthesia with 1% lidocaine. Under real-time ultrasound guidance, puncture basilic vein using 21-gauge needle, passage 0.018 guidewire, exchange for 5 [place] peel-away sheath. 5 [place] Bard dual-lumen power PICC cut to 43 cm. It was inserted through the peel-away sheath. Peel-away sheath and guidewire removed. Catheter fixed to the skin. Both catheter ports aspirated and flushed. Patient tolerated procedure well, without immediate complication. Followup chest x-ray obtained, documents catheter tip position at the cavoatrial junction Impression: Successful bedside placement of right arm PICC under sonographic guidance, as described above.
--- NOTE | 2018-02-01 11:54 | Diagnostic Imaging Report ---
Indication: Dyspnea Technique: One view of the chest Comparison: 01/31/2018 Findings: There is decreased right basilar atelectasis and consolidation. The heart size is normal. Interim endotracheal extubation Impression: No acute process. Improved right basilar parenchymal disease, over one day
--- NOTE | 2018-02-01 16:42 | Internal Med Progress Note ---
Subjective Date of Service: Feb 01, 2018 Physician Name April Heath Attending Physician Fam Joe MD Current Medications Medications (Trade) Dose Ordered Sig/Shereen Route PRN Reason Start Time Stop Time Status Last Admin Dose Admin Albuterol Sulfate (Proventil) 2.5 mg Q6HRT HHN 01/28/18 13:00 02/02/18 12:59 02/01/18 13:29 Albuterol/ Ipratropium (Albuterol/ Ipratropium) 3 ml Q4H PRN HHN Shortness of Breath 01/28/18 11:00 02/02/18 10:59 Cefazolin Sodium 1 gm/Sodium Chloride 55 ml @ 110 mls/hr Q8H IVPB 01/31/18 20:00 02/07/18 23:59 02/01/18 12:29 Chlorhexidine Gluconate (Dari-Hex 2%) 1 applic DAILY@2000 TOPIC 01/29/18 20:00 02/28/18 19:59 01/31/18 20:41 Dextrose 1,000 ml @ 50 mls/hr Q20H IV 02/01/18 15:15 03/03/18 15:14 02/01/18 15:42 Dextrose (Dextrose 50%) 25 ml STAT PRN IV Hypoglycemia 01/28/18 10:45 02/27/18 10:44 Haloperidol Lactate 5 mg/ Dextrose 56 ml @ 224 mls/hr EVERY HOUR PRN IVPB AGITATION 01/31/18 12:15 03/02/18 12:14 01/31/18 22:43 Heparin Sodium (Porcine) (Heparin 5000 units/ml) 5,000 units EVERY 12 HOURS SUBQ 01/28/18 21:00 02/27/18 20:59 02/01/18 10:11 Insulin Aspart (NovoLOG) BEFORE MEALS AND HS SUBQ 01/28/18 11:30 02/27/18 11:29 01/31/18 16:41 Lorazepam (Ativan 2mg/ml 1ml) 2 mg Q4H PRN IV For Anxiety 01/28/18 11:00 02/04/18 10:59 02/01/18 12:29 Methylprednisolone Sodium Succinate (Solu-MEDROL) 60 mg EVERY 8 HOURS IV 01/31/18 14:00 02/27/18 11:59 02/01/18 14:38 Metronidazole 100 ml @ 100 mls/hr Q8H IVPB 01/31/18 20:30 02/07/18 23:59 02/01/18 13:15 Midazolam HCl 100 ml @ 0 mls/hr Q24H PRN IVPB To Patient Comfort 01/28/18 11:00 02/04/18 10:59 01/31/18 22:45 Morphine Sulfate (Morphine Sulfate) 2 mg Q4H PRN IVP Moderate Pain (Pain Scale 4-6) 01/28/18 11:30 02/04/18 10:59 Morphine Sulfate (Morphine Sulfate) 4 mg Q4H PRN IVP Severe Pain (Pain Scale 7-10) 01/28/18 10:30 02/04/18 10:29 02/01/18 13:10 Nitroglycerin (Ntg) 0.4 mg Q5M X 3 DOSES PRN SL Prn Chest Pain 01/28/18 11:00 02/27/18 10:59 Ondansetron HCl (Zofran) 4 mg Q6H PRN IVP Nausea & Vomiting 01/28/18 11:00 02/27/18 10:59 Pantoprazole (Protonix) 40 mg DAILY IV 01/29/18 09:00 02/28/18 08:59 02/01/18 09:49 Allergies: Coded Allergies: No Known Allergies (Unverified , 01/28/18) ROS Limited/Unobtainable: No Constitutional: Reports: no symptoms HEENT: Reports: no symptoms Cardiovascular: Reports: no symptoms Respiratory: Reports: cough, shortness of breath, wheezing Gastrointestinal/Abdominal: Reports: no symptoms Genitourinary: Reports: no symptoms Neurologic/Psychiatric: Reports: no symptoms Subjective 62 YO M admitted with Respiratory failure. Now pneumonia. Extubated 01/31/18. Cover for Jaden Joe. ICU Objective Last Vital Signs Date Time Temp Pulse Resp B/P (MAP) Pulse Ox O2 Delivery O2 Flow Rate FiO2 02/01/18 15:00 93 19 141/80 94 Room Air 02/01/18 13:35 2.0 28 02/01/18 12:00 97.7 97.7 Laboratory Tests Test 01/31/18 22:00 02/01/18 06:50 02/01/18 08:20 Stool Occult Blood Negative (NEGATIVE) White Blood Count 12.1 K/UL (4.8-10.8) H Red Blood Count 4.66 M/UL (4.70-6.10) L Hemoglobin 14.6 G/DL (14.2-18.0) Hematocrit 41.7 % (42.0-52.0) L Mean Corpuscular Volume 89 FL (80-99) Mean Corpuscular Hemoglobin 31.3 PG (27.0-31.0) H Mean Corpuscular Hemoglobin Concent 35.0 G/DL (32.0-36.0) Red Cell Distribution Width 12.2 % (11.6-14.8) Platelet Count 239 K/UL (150-450) Mean Platelet Volume 7.6 FL (6.5-10.1) Neutrophils (%) (Auto) % (45.0-75.0) Lymphocytes (%) (Auto) % (20.0-45.0) Monocytes (%) (Auto) % (1.0-10.0) Eosinophils (%) (Auto) % (0.0-3.0) Basophils (%) (Auto) % (0.0-2.0) Differential Total Cells Counted 100 Neutrophils % (Manual) 83 % (45-75) H Lymphocytes % (Manual) 5 % (20-45) L Monocytes % (Manual) 12 % (1-10) H Eosinophils % (Manual) 0 % (0-3) Basophils % (Manual) 0 % (0-2) Band Neutrophils 0 % (0-8) Platelet Estimate Adequate Platelet Morphology Normal Red Blood Cell Morphology Normal Sodium Level 137 MMOL/L (136-145) Potassium Level 4.8 MMOL/L (3.5-5.1) Chloride Level 102 MMOL/L (98-107) Carbon Dioxide Level 31 MMOL/L (21-32) Anion Gap 4 mmol/L (5-15) L Blood Urea Nitrogen 26 mg/dL (7-18) H Creatinine 1.0 MG/DL (0.55-1.30) Estimat Glomerular Filtration Rate > 60 mL/min (>60) Glucose Level 120 MG/DL (74-106) H Calcium Level 8.8 MG/DL (8.5-10.1) Phosphorus Level 4.7 MG/DL (2.5-4.9) Magnesium Level 2.5 MG/DL (1.8-2.4) H Total Bilirubin 0.7 MG/DL (0.2-1.0) Aspartate Amino Transf (AST/SGOT) 32 U/L (15-37) Alanine Aminotransferase (ALT/SGPT) 96 U/L (12-78) H Alkaline Phosphatase 60 U/L (46-116) Total Protein 6.8 G/DL (6.4-8.2) Albumin 3.4 G/DL (3.4-5.0) Globulin 3.4 g/dL Albumin/Globulin Ratio 1.0 (1.0-2.7) Vancomycin Level Trough 5.3 ug/mL (5.0-12.0) Arterial Blood pH 7.411 (7.350-7.450) Arterial Blood Partial Pressure CO2 46.8 mmHg (35.0-45.0) H Arterial Blood Partial Pressure O2 82.3 mmHg (75.0-100.0) Arterial Blood HCO3 29.1 mmol/L (22.0-26.0) H Arterial Blood Oxygen Saturation 95.9 % (92.0-98.0) Arterial Blood Base Excess 3.7 Alin Test Positive Intake and Output 01/31/18 02/01/18 19:00 07:00 Intake Total 933.5 ml 474 ml Output Total 950 ml 805 ml Balance -16.5 ml -331 ml IV Total 411.5 ml 474 ml Tube Feeding 522 ml Output Urine Total 950 ml 805 ml # Bowel Movements 2 Objective General Appearance: WD/WN, moderate distress EENT: PERRL/EOMI, normal ENT inspection Neck: non-tender, normal alignment, supple Cardiovascular: normal peripheral pulses, normal rate, regular rhythm, no gallop/murmur, no JVD Respiratory/Chest: Mech vent; respiratory distress, crackles/rales, rhonchi - bilaterally, expiratory wheezing Abdomen: normal bowel sounds, non tender, soft, no organomegaly, no mass 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 Continue zosyn and cefazolin-see pulmonary note. (2) Leukocytosis (3) Asthma (4) Abdominal pain (5) Respiratory distress (6) Acute respiratory failure Assessment & Plan: Extubated 4/16/18 see pulmonay note Status: progressing Assessment/Plan Transfer to [facility] today. APRIL HEATH Feb 01, 2018 16:42
[2018-02-01] MEDS ORDERED: Dyna-Hex 2% Top Sol 2oz TOPIC SCH (20:00)
[2018-02-01] MEDS: Dyna-Hex 2% Top Sol 2oz TOPIC SCH (20:02)
[2018-02-02] MEDS: Morphine Sulfate 4mg/ml Inj IVP PRN ×2 (01:07)
[2018-02-02] MEDS: LORazepam Inj 2mg/ml 1ml IV PRN (01:08)
[2018-02-02] MEDS: Albuterol ud Inhalation HHN SCH ×3 (01:15→19:31)
[2018-02-02] MEDS: ceFAZolin sod 1 GM in NS 55 ML IVPB SCH ×3 (03:09→21:14)
[2018-02-02] MEDS ORDERED: Nitroglycerin Subl 0.4mg tab SL PRN (03:15)
[2018-02-02] MEDS ORDERED: Haloperidol Lactate 5 MG in D5W 55 ML IVPB PRN (04:00)
[2018-02-02] MEDS ORDERED: Albuterol/Ipratropium 3ml neb HHN PRN (04:05)
[2018-02-02] MEDS ORDERED: LORazepam Inj 2mg/ml 1ml IV PRN (05:00)
[2018-02-02] MEDS ORDERED: Morphine Sulfate 4mg/ml Inj IVP PRN ×2 (05:00)
[2018-02-02] MEDS: NovoLOG Insulin Flexpen SUBQ SCH ×4 (05:50→21:21)
[2018-02-02] MEDS ORDERED: Solu-MEDROL 125mg Inj IV SCH (06:00)
[2018-02-02] MEDS ORDERED: Albuterol ud Inhalation HHN SCH (07:00)
[2018-02-02 07:19] LABS: ALANINE AMINOTRANSFERASE 77 U/L (12-78); ALBUMIN 3.3 G/DL (3.4-5.0); ALKALINE PHOSPHATASE 55 U/L (46-116); ANION GAP 7 mmol/L (5-15); ASPARTATE AMINO TRANSFERASE 19 U/L (15-37); BILIRUBIN,TOTAL 0.5 MG/DL (0.2-1.0); BLOOD UREA NITROGEN 25 mg/dL (7-18); CALCIUM 8.4 MG/DL (8.5-10.1); CARBON DIOXIDE 30 MMOL/L (21-32); CHLORIDE 94 MMOL/L (98-107); PHOSPHORUS 3.6 MG/DL (2.5-4.9); POTASSIUM 4.1 MMOL/L (3.5-5.1); SODIUM 130 MMOL/L (136-145)
[2018-02-02 07:26] LABS: HEMATOCRIT 40.1 % (42.0-52.0); HEMOGLOBIN 13.6 G/DL (14.2-18.0); MEAN CORPUSCULAR VOLUME 90 FL (80-99); PLATELET COUNT 221 K/UL (150-450); RED BLOOD COUNT 4.45 M/UL (4.70-6.10); RED CELL DISTRIBUTION WIDTH 12.1 % (11.6-14.8); WHITE BLOOD COUNT 11.9 K/UL (4.8-10.8)
[2018-02-02 08:00] VITALS: BP 148/86
[2018-02-02] MEDS: Pantoprazole Inj IV SCH (08:47)
[2018-02-02] MEDS: Heparin 5000 units/ml inj SUBQ SCH ×2 (08:51→21:22)
--- NOTE | 2018-02-02 09:14 | Diagnostic Imaging Report ---
Indication: Dyspnea Technique: One view of the chest Comparison: 02/01/2018 post PICC radiograph Findings: Atelectatic changes are seen at the right lung base. Lungs and pleural spaces are otherwise clear. Stable satisfactory position of right arm PICC. Impression: Right basilar atelectasis No acute process otherwise
--- NOTE | 2018-02-02 10:11 | Pulmonolgy Critical Care Note ---
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 - Objective Last 24 Hour Vital Signs Date Time Temp Pulse Resp B/P (MAP) Pulse Ox O2 Delivery O2 Flow Rate FiO2 02/02/18 08:00 87 02/02/18 08:00 97.4 86 19 148/86 97 Nasal Cannula 2.0 97.4 02/02/18 07:59 94 20 100 Nasal Cannula 2.0 28 02/02/18 07:59 Nasal Cannula 2.0 28 02/02/18 07:50 90 20 96 Nasal Cannula 2.0 28 02/02/18 07:49 94 Room Air 21 02/02/18 04:26 86 02/02/18 01:16 89 20 100 Nasal Cannula 2.0 28 02/02/18 01:15 85 20 97 Nasal Cannula 2.0 28 02/02/18 00:00 88 02/01/18 20:00 99 02/01/18 20:00 92 20 98 Nasal Cannula 2.0 28 02/01/18 20:00 95 20 100 Nasal Cannula 2.0 28 02/01/18 20:00 98 Nasal Cannula 2.0 28 02/01/18 20:00 Nasal Cannula 2.0 28 02/01/18 18:00 97 18 169/87 94 Nasal Cannula 2.0 02/01/18 17:00 93 21 143/89 94 Nasal Cannula 2.0 02/01/18 16:00 97.7 93 18 148/74 94 Room Air 97.7 02/01/18 16:00 90 02/01/18 15:00 93 19 141/80 94 Room Air 02/01/18 14:00 92 18 135/73 93 Room Air 02/01/18 13:35 98 22 100 Nasal Cannula 2.0 28 02/01/18 13:26 94 22 96 Room Air 21 02/01/18 13:00 96 19 162/67 100 Room Air 02/01/18 12:00 100 02/01/18 12:00 97.7 103 18 144/78 93 Room Air 97.7 02/01/18 11:00 90 16 121/70 98 Nasal Cannula 2.0 Status: awake Condition: critical HEENT: atraumatic Neck: full ROM Lungs: clear Heart: HR/BP stable, HR/BP unstable Abdomen: soft, non-tender Extremities: no C/C/E Accucheck: 142 Critical Care - Subjective ROS Limited/Unobtainable: Yes Interval Events: replacement note for yesterday, my note disappeared from the system. weaning comfortably. FI02: 28 Vent Support Breath Rate: 16 Vent Support Mode: CPAP Vent Tidal Volume: 600 Sputum Amount: None PEEP: 5.0 PIP: 35 Tube Feeding Amount: 47 I&O: Intake and Output 02/01/18 02/02/18 19:00 07:00 Intake Total 355 ml 1255.8 ml Output Total 1830 ml 200 ml Balance -1475 ml 1055.8 ml IV Total 355 ml 1255.8 ml Output Urine Total 1830 ml 200 ml # Bowel Movements 1 CXR: ET in good position ET-Tube: 7.5 ET Position: 24 Labs: Laboratory Tests Test 02/02/18 05:00 02/02/18 08:40 White Blood Count 11.9 K/UL (4.8-10.8) H Red Blood Count 4.45 M/UL (4.70-6.10) L Hemoglobin 13.6 G/DL (14.2-18.0) L Hematocrit 40.1 % (42.0-52.0) L Mean Corpuscular Volume 90 FL (80-99) Mean Corpuscular Hemoglobin 30.6 PG (27.0-31.0) Mean Corpuscular Hemoglobin Concent 34.0 G/DL (32.0-36.0) Red Cell Distribution Width 12.1 % (11.6-14.8) Platelet Count 221 K/UL (150-450) Mean Platelet Volume 7.5 FL (6.5-10.1) Neutrophils (%) (Auto) % (45.0-75.0) Lymphocytes (%) (Auto) % (20.0-45.0) Monocytes (%) (Auto) % (1.0-10.0) Eosinophils (%) (Auto) % (0.0-3.0) Basophils (%) (Auto) % (0.0-2.0) Differential Total Cells Counted 100 Neutrophils % (Manual) 81 % (45-75) H Lymphocytes % (Manual) 10 % (20-45) L Monocytes % (Manual) 9 % (1-10) Eosinophils % (Manual) 0 % (0-3) Basophils % (Manual) 0 % (0-2) Band Neutrophils 0 % (0-8) Platelet Estimate Adequate Platelet Morphology Normal Red Blood Cell Morphology Normal Sodium Level 130 MMOL/L (136-145) L Potassium Level 4.1 MMOL/L (3.5-5.1) Chloride Level 94 MMOL/L (98-107) L Carbon Dioxide Level 30 MMOL/L (21-32) Anion Gap 7 mmol/L (5-15) Blood Urea Nitrogen 25 mg/dL (7-18) H Creatinine 1.0 MG/DL (0.55-1.30) Estimat Glomerular Filtration Rate > 60 mL/min (>60) Glucose Level 333 MG/DL (74-106) #H Calcium Level 8.4 MG/DL (8.5-10.1) L Phosphorus Level 3.6 MG/DL (2.5-4.9) Magnesium Level 2.5 MG/DL (1.8-2.4) H Total Bilirubin 0.5 MG/DL (0.2-1.0) Aspartate Amino Transf (AST/SGOT) 19 U/L (15-37) Alanine Aminotransferase (ALT/SGPT) 77 U/L (12-78) Alkaline Phosphatase 55 U/L (46-116) Total Protein 6.7 G/DL (6.4-8.2) Albumin 3.3 G/DL (3.4-5.0) L Globulin 3.4 g/dL Albumin/Globulin Ratio 1.0 (1.0-2.7) Arterial Blood pH 7.415 (7.350-7.450) Arterial Blood Partial Pressure CO2 46.1 mmHg (35.0-45.0) H Arterial Blood Partial Pressure O2 70.8 mmHg (75.0-100.0) L Arterial Blood HCO3 28.9 mmol/L (22.0-26.0) H Arterial Blood Oxygen Saturation 93.6 % (92.0-98.0) Arterial Blood Base Excess 3.6 Alin Test Positive Ahsan Wu MD Feb 02, 2018 10:11
--- NOTE | 2018-02-02 10:15 | Pulmonology Progress Note ---
Assessment/Plan Problems: (1) Acute respiratory failure (2) Acute encephalopathy (3) Acute asthma exacerbation Assessment/Plan respiratory treatment titrate fio2 to sat of 92 check sputum pt ot advance diet dc IV fluids taper down sterids slowly dvt prophylaxis all notes reviewed. Subjective ROS Limited/Unobtainable: No Interval Events: tolerating extubation Allergies: Coded Allergies: No Known Allergies (Unverified , 01/28/18) Objective Last 24 Hour Vital Signs Date Time Temp Pulse Resp B/P (MAP) Pulse Ox O2 Delivery O2 Flow Rate FiO2 02/02/18 08:00 87 02/02/18 08:00 97.4 86 19 148/86 97 Nasal Cannula 2.0 97.4 02/02/18 07:59 94 20 100 Nasal Cannula 2.0 28 02/02/18 07:59 Nasal Cannula 2.0 28 02/02/18 07:50 90 20 96 Nasal Cannula 2.0 28 02/02/18 07:49 94 Room Air 21 02/02/18 04:26 86 02/02/18 01:16 89 20 100 Nasal Cannula 2.0 28 02/02/18 01:15 85 20 97 Nasal Cannula 2.0 28 02/02/18 00:00 88 02/01/18 20:00 99 02/01/18 20:00 92 20 98 Nasal Cannula 2.0 28 02/01/18 20:00 95 20 100 Nasal Cannula 2.0 28 02/01/18 20:00 98 Nasal Cannula 2.0 28 02/01/18 20:00 Nasal Cannula 2.0 28 02/01/18 18:00 97 18 169/87 94 Nasal Cannula 2.0 02/01/18 17:00 93 21 143/89 94 Nasal Cannula 2.0 02/01/18 16:00 97.7 93 18 148/74 94 Room Air 97.7 02/01/18 16:00 90 02/01/18 15:00 93 19 141/80 94 Room Air 02/01/18 14:00 92 18 135/73 93 Room Air 02/01/18 13:35 98 22 100 Nasal Cannula 2.0 28 02/01/18 13:26 94 22 96 Room Air 21 02/01/18 13:00 96 19 162/67 100 Room Air 02/01/18 12:00 100 02/01/18 12:00 97.7 103 18 144/78 93 Room Air 97.7 02/01/18 11:00 90 16 121/70 98 Nasal Cannula 2.0 Intake and Output 02/01/18 02/02/18 19:00 07:00 Intake Total 355 ml 1255.8 ml Output Total 1830 ml 200 ml Balance -1475 ml 1055.8 ml IV Total 355 ml 1255.8 ml Output Urine Total 1830 ml 200 ml # Bowel Movements 1 General Appearance: WD/WN HEENT: normocephalic, atraumatic Respiratory/Chest: chest wall non-tender, lungs clear Cardiovascular: normal peripheral pulses, normal rate Abdomen: normal bowel sounds, no organomegaly Genitourinary: normal external genitalia Extremities: no cyanosis Skin: no rash 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, abnormal gait Lymphatic: no groin adenopathy Musculoskeletal: normal muscle bulk Laboratory Tests 02/02/18 05:00: White Blood Count 11.9H, Red Blood Count 4.45L, Hemoglobin 13.6L, Hematocrit 40.1L, Mean Corpuscular Volume 90, Mean Corpuscular Hemoglobin 30.6, Mean Corpuscular Hemoglobin Concent 34.0, Red Cell Distribution Width 12.1, Platelet Count 221, Mean Platelet Volume 7.5, Neutrophils (%) (Auto) , Lymphocytes (%) ( Auto) , Monocytes (%) (Auto) , Eosinophils (%) (Auto) , Basophils (%) (Auto) , Differential Total Cells Counted 100, Neutrophils % (Manual) 81H, Lymphocytes % (Manual) 10L, Monocytes % (Manual) 9, Eosinophils % (Manual) 0, Basophils % ( Manual) 0, Band Neutrophils 0, Platelet Estimate Adequate, Platelet Morphology Normal, Red Blood Cell Morphology Normal, Sodium Level 130L, Potassium Level 4.1 , Chloride Level 94L, Carbon Dioxide Level 30, Anion Gap 7, Blood Urea Nitrogen 25H, Creatinine 1.0, Estimat Glomerular Filtration Rate > 60, Glucose Level 333# H, Calcium Level 8.4L, Phosphorus Level 3.6, Magnesium Level 2.5H, Total Bilirubin 0.5, Aspartate Amino Transf (AST/SGOT) 19, Alanine Aminotransferase ( ALT/SGPT) 77, Alkaline Phosphatase 55, Total Protein 6.7, Albumin 3.3L, Globulin 3.4, Albumin/Globulin Ratio 1.0 02/02/18 08:40: Arterial Blood pH 7.415, Arterial Blood Partial Pressure CO2 46.1H, Arterial Blood Partial Pressure O2 70.8L, Arterial Blood HCO3 28.9H, Arterial Blood Oxygen Saturation 93.6, Arterial Blood Base Excess 3.6, Alin Test Positive Current Medications Medications (Trade) Dose Ordered Sig/Shereen Route PRN Reason Start Time Stop Time Status Last Admin Dose Admin Albuterol Sulfate (Proventil) 2.5 mg Q6HRT HHN 02/02/18 07:00 02/02/18 12:59 02/02/18 07:58 Cefazolin Sodium 1 gm/Sodium Chloride 55 ml @ 110 mls/hr Q8H IVPB 02/02/18 12:00 02/07/18 11:59 Chlorhexidine Gluconate (Dari-Hex 2%) 1 applic DAILY@2000 TOPIC 02/02/18 20:00 02/28/18 19:59 Dextrose 1,000 ml @ 50 mls/hr Q20H IV 02/02/18 05:00 03/03/18 04:59 02/02/18 04:05 Dextrose (Dextrose 50%) 25 ml STAT PRN IV Hypoglycemia 02/02/18 04:02 02/27/18 04:01 Haloperidol Lactate 5 mg/ Dextrose 56 ml @ 224 mls/hr Q1H PRN IVPB AGITATION 02/02/18 04:00 03/04/18 03:59 Heparin Sodium (Porcine) (Heparin 5000 units/ml) 5,000 units EVERY 12 HOURS SUBQ 02/02/18 09:00 02/27/18 20:59 02/02/18 08:51 Insulin Aspart (NovoLOG) BEFORE MEALS AND HS SUBQ 02/02/18 06:30 02/27/18 11:29 02/02/18 05:50 Lorazepam (Ativan 2mg/ml 1ml) 2 mg Q4H PRN IV For Anxiety 02/02/18 05:00 02/04/18 04:59 Methylprednisolone Sodium Succinate (Solu-MEDROL) 60 mg EVERY 8 HOURS IV 02/02/18 06:00 02/27/18 11:59 02/02/18 05:26 Metronidazole 100 ml @ 100 mls/hr Q8H IVPB 02/02/18 04:30 02/07/18 23:59 02/02/18 04:20 Morphine Sulfate (Morphine Sulfate) 2 mg Q4H PRN IVP Moderate Pain (Pain Scale 4-6) 02/02/18 05:00 02/04/18 04:59 Morphine Sulfate (Morphine Sulfate) 4 mg Q4H PRN IVP Severe Pain (Pain Scale 7-10) 02/02/18 05:00 02/04/18 04:59 Nitroglycerin (Ntg) 0.4 mg Q5M X 3 DOSES PRN SL Prn Chest Pain 02/02/18 03:15 02/27/18 10:59 Ondansetron HCl (Zofran) 4 mg Q6H PRN IVP Nausea & Vomiting 02/02/18 04:09 02/27/18 04:08 Pantoprazole (Protonix) 40 mg DAILY IV 02/02/18 09:00 02/28/18 08:59 02/02/18 08:47 Ahsan Wu MD Feb 02, 2018 10:15
--- NOTE | 2018-02-02 11:02 | Infectious Diseases Prog Note ---
Assessment/Plan Assessment/Plan ASSESSMENT: The patient is a 62-year-old male with: Probable aspiration pneumonia. Scx: MSSA 01/31 SCx: Bibasilar atelectasis and possible consolidation, new/increased since previous day's exam Asthma. Leukocytosis, mild ( on steroids ) IMPROVING Ventilator-dependent respiratory failure., Extub 01/31 Asthma. PLAN: on IV Ancef d# 3 / , Flagyl d# 3 / 5 ( Aspiration ) 01/31 SP Zosyn day # 3 Monitor CBC and BMP. Monitor cultures (blood, ) Monitor chest x-ray. Subjective Allergies: Coded Allergies: No Known Allergies (Unverified , 01/28/18) Subjective transferred out ICU Objective Vital Signs Last 24 Hour Vital Signs Date Time Temp Pulse Resp B/P (MAP) Pulse Ox O2 Delivery O2 Flow Rate FiO2 02/02/18 08:00 87 02/02/18 08:00 97.4 86 19 148/86 97 Nasal Cannula 2.0 97.4 02/02/18 07:59 94 20 100 Nasal Cannula 2.0 28 02/02/18 07:59 Nasal Cannula 2.0 28 02/02/18 07:50 90 20 96 Nasal Cannula 2.0 28 02/02/18 07:49 94 Room Air 21 02/02/18 04:26 86 02/02/18 01:16 89 20 100 Nasal Cannula 2.0 28 02/02/18 01:15 85 20 97 Nasal Cannula 2.0 28 02/02/18 00:00 88 02/01/18 20:00 99 02/01/18 20:00 92 20 98 Nasal Cannula 2.0 28 02/01/18 20:00 95 20 100 Nasal Cannula 2.0 28 02/01/18 20:00 98 Nasal Cannula 2.0 28 02/01/18 20:00 Nasal Cannula 2.0 28 02/01/18 18:00 97 18 169/87 94 Nasal Cannula 2.0 02/01/18 17:00 93 21 143/89 94 Nasal Cannula 2.0 02/01/18 16:00 97.7 93 18 148/74 94 Room Air 97.7 02/01/18 16:00 90 02/01/18 15:00 93 19 141/80 94 Room Air 02/01/18 14:00 92 18 135/73 93 Room Air 02/01/18 13:35 98 22 100 Nasal Cannula 2.0 28 02/01/18 13:26 94 22 96 Room Air 21 02/01/18 13:00 96 19 162/67 100 Room Air 02/01/18 12:00 100 02/01/18 12:00 97.7 103 18 144/78 93 Room Air 97.7 Height (Feet): 5 Height (Inches): 11.00 Weight (Pounds): 224 HEENT: anicteric Respiratory/Chest: no respiratory distress Cardiovascular: regularly irregular Abdomen: no organomegaly Laboratory Tests Test 02/02/18 05:00 02/02/18 08:40 White Blood Count 11.9 K/UL (4.8-10.8) H Red Blood Count 4.45 M/UL (4.70-6.10) L Hemoglobin 13.6 G/DL (14.2-18.0) L Hematocrit 40.1 % (42.0-52.0) L Mean Corpuscular Volume 90 FL (80-99) Mean Corpuscular Hemoglobin 30.6 PG (27.0-31.0) Mean Corpuscular Hemoglobin Concent 34.0 G/DL (32.0-36.0) Red Cell Distribution Width 12.1 % (11.6-14.8) Platelet Count 221 K/UL (150-450) Mean Platelet Volume 7.5 FL (6.5-10.1) Neutrophils (%) (Auto) % (45.0-75.0) Lymphocytes (%) (Auto) % (20.0-45.0) Monocytes (%) (Auto) % (1.0-10.0) Eosinophils (%) (Auto) % (0.0-3.0) Basophils (%) (Auto) % (0.0-2.0) Differential Total Cells Counted 100 Neutrophils % (Manual) 81 % (45-75) H Lymphocytes % (Manual) 10 % (20-45) L Monocytes % (Manual) 9 % (1-10) Eosinophils % (Manual) 0 % (0-3) Basophils % (Manual) 0 % (0-2) Band Neutrophils 0 % (0-8) Platelet Estimate Adequate Platelet Morphology Normal Red Blood Cell Morphology Normal Sodium Level 130 MMOL/L (136-145) L Potassium Level 4.1 MMOL/L (3.5-5.1) Chloride Level 94 MMOL/L (98-107) L Carbon Dioxide Level 30 MMOL/L (21-32) Anion Gap 7 mmol/L (5-15) Blood Urea Nitrogen 25 mg/dL (7-18) H Creatinine 1.0 MG/DL (0.55-1.30) Estimat Glomerular Filtration Rate > 60 mL/min (>60) Glucose Level 333 MG/DL (74-106) #H Calcium Level 8.4 MG/DL (8.5-10.1) L Phosphorus Level 3.6 MG/DL (2.5-4.9) Magnesium Level 2.5 MG/DL (1.8-2.4) H Total Bilirubin 0.5 MG/DL (0.2-1.0) Aspartate Amino Transf (AST/SGOT) 19 U/L (15-37) Alanine Aminotransferase (ALT/SGPT) 77 U/L (12-78) Alkaline Phosphatase 55 U/L (46-116) Total Protein 6.7 G/DL (6.4-8.2) Albumin 3.3 G/DL (3.4-5.0) L Globulin 3.4 g/dL Albumin/Globulin Ratio 1.0 (1.0-2.7) Arterial Blood pH 7.415 (7.350-7.450) Arterial Blood Partial Pressure CO2 46.1 mmHg (35.0-45.0) H Arterial Blood Partial Pressure O2 70.8 mmHg (75.0-100.0) L Arterial Blood HCO3 28.9 mmol/L (22.0-26.0) H Arterial Blood Oxygen Saturation 93.6 % (92.0-98.0) Arterial Blood Base Excess 3.6 Alin Test Positive Current Medications Medications (Trade) Dose Ordered Sig/Shereen Route PRN Reason Start Time Stop Time Status Last Admin Dose Admin Albuterol Sulfate (Proventil) 2.5 mg Q6HRT HHN 02/02/18 07:00 02/02/18 12:59 02/02/18 07:58 Cefazolin Sodium 1 gm/Sodium Chloride 55 ml @ 110 mls/hr Q8H IVPB 02/02/18 12:00 02/07/18 11:59 Chlorhexidine Gluconate (Dari-Hex 2%) 1 applic DAILY@1999 TOPIC 02/02/18 20:00 02/28/18 19:59 Dextrose (Dextrose 50%) 25 ml STAT PRN IV Hypoglycemia 02/02/18 04:02 02/27/18 04:01 Haloperidol Lactate 5 mg/ Dextrose 56 ml @ 224 mls/hr Q1H PRN IVPB AGITATION 02/02/18 04:00 03/04/18 03:59 Heparin Sodium (Porcine) (Heparin 5000 units/ml) 5,000 units EVERY 12 HOURS SUBQ 02/02/18 09:00 02/27/18 20:59 02/02/18 08:51 Insulin Aspart (NovoLOG) BEFORE MEALS AND HS SUBQ 02/02/18 06:30 02/27/18 11:29 02/02/18 05:50 Lorazepam (Ativan 2mg/ml 1ml) 2 mg Q4H PRN IV For Anxiety 02/02/18 05:00 02/04/18 04:59 Methylprednisolone Sodium Succinate (Solu-MEDROL) 60 mg EVERY 12 HOURS IV 02/02/18 21:00 02/27/18 11:59 Metronidazole 100 ml @ 100 mls/hr Q8H IVPB 02/02/18 04:30 02/07/18 23:59 02/02/18 04:20 Morphine Sulfate (Morphine Sulfate) 2 mg Q4H PRN IVP Moderate Pain (Pain Scale 4-6) 02/02/18 05:00 02/04/18 04:59 Morphine Sulfate (Morphine Sulfate) 4 mg Q4H PRN IVP Severe Pain (Pain Scale 7-10) 02/02/18 05:00 02/04/18 04:59 Nitroglycerin (Ntg) 0.4 mg Q5M X 3 DOSES PRN SL Prn Chest Pain 02/02/18 03:15 02/27/18 10:59 Ondansetron HCl (Zofran) 4 mg Q6H PRN IVP Nausea & Vomiting 02/02/18 04:09 02/27/18 04:08 Pantoprazole (Protonix) 40 mg DAILY IV 02/02/18 09:00 02/28/18 08:59 02/02/18 08:47 Mike Domingo MD Feb 02, 2018 11:02
[2018-02-02 12:00] VITALS: BP 139/86
[2018-02-02 16:00] VITALS: BP 133/77
--- NOTE | 2018-02-02 18:23 | Internal Med Progress Note ---
Subjective Date of Service: Feb 02, 2018 Physician Name April Heath Attending Physician Fam Joe MD Current Medications Medications (Trade) Dose Ordered Sig/Shereen Route PRN Reason Start Time Stop Time Status Last Admin Dose Admin Albuterol Sulfate (Proventil) 2.5 mg Q6HRT HHN 02/02/18 13:45 02/07/18 13:44 02/02/18 13:36 Cefazolin Sodium 1 gm/Sodium Chloride 55 ml @ 110 mls/hr Q8H IVPB 02/02/18 12:00 02/07/18 11:59 02/02/18 11:48 Chlorhexidine Gluconate (Dari-Hex 2%) 1 applic DAILY@2000 TOPIC 02/02/18 20:00 02/28/18 19:59 Dextrose (Dextrose 50%) 25 ml STAT PRN IV Hypoglycemia 02/02/18 04:02 02/27/18 04:01 Haloperidol Lactate 5 mg/ Dextrose 56 ml @ 224 mls/hr Q1H PRN IVPB AGITATION 02/02/18 04:00 03/04/18 03:59 Heparin Sodium (Porcine) (Heparin 5000 units/ml) 5,000 units EVERY 12 HOURS SUBQ 02/02/18 09:00 02/27/18 20:59 02/02/18 08:51 Insulin Aspart (NovoLOG) BEFORE MEALS AND HS SUBQ 02/02/18 06:30 02/27/18 11:29 02/02/18 16:25 Lorazepam (Ativan 2mg/ml 1ml) 2 mg Q4H PRN IV For Anxiety 02/02/18 05:00 02/04/18 04:59 Methylprednisolone Sodium Succinate (Solu-MEDROL) 60 mg EVERY 12 HOURS IV 02/02/18 21:00 02/27/18 11:59 Metronidazole 100 ml @ 100 mls/hr Q8H IVPB 02/02/18 04:30 02/07/18 23:59 02/02/18 12:33 Morphine Sulfate (Morphine Sulfate) 2 mg Q4H PRN IVP Moderate Pain (Pain Scale 4-6) 02/02/18 05:00 02/04/18 04:59 Morphine Sulfate (Morphine Sulfate) 4 mg Q4H PRN IVP Severe Pain (Pain Scale 7-10) 02/02/18 05:00 02/04/18 04:59 Nitroglycerin (Ntg) 0.4 mg Q5M X 3 DOSES PRN SL Prn Chest Pain 02/02/18 03:15 02/27/18 10:59 Ondansetron HCl (Zofran) 4 mg Q6H PRN IVP Nausea & Vomiting 02/02/18 04:09 02/27/18 04:08 Pantoprazole (Protonix) 40 mg DAILY IV 02/02/18 09:00 02/28/18 08:59 02/02/18 08:47 Allergies: Coded Allergies: No Known Allergies (Unverified , 01/28/18) ROS Limited/Unobtainable: No Constitutional: Reports: no symptoms HEENT: Reports: no symptoms Cardiovascular: Reports: no symptoms Respiratory: Reports: shortness of breath, wheezing Gastrointestinal/Abdominal: Reports: no symptoms Genitourinary: Reports: no symptoms Neurologic/Psychiatric: Reports: no symptoms Subjective 62 YO M admitted with Respiratory failure. Now pneumonia. Extubated 01/31/18. Cover for Int Med-Dr Joe. KRISTA Objective Last Vital Signs Date Time Temp Pulse Resp B/P (MAP) Pulse Ox O2 Delivery O2 Flow Rate FiO2 02/02/18 16:00 97.6 84 20 133/77 99 Nasal Cannula 2.0 97.6 02/02/18 13:19 28 Laboratory Tests Test 02/02/18 05:00 02/02/18 08:40 White Blood Count 11.9 K/UL (4.8-10.8) H Red Blood Count 4.45 M/UL (4.70-6.10) L Hemoglobin 13.6 G/DL (14.2-18.0) L Hematocrit 40.1 % (42.0-52.0) L Mean Corpuscular Volume 90 FL (80-99) Mean Corpuscular Hemoglobin 30.6 PG (27.0-31.0) Mean Corpuscular Hemoglobin Concent 34.0 G/DL (32.0-36.0) Red Cell Distribution Width 12.1 % (11.6-14.8) Platelet Count 221 K/UL (150-450) Mean Platelet Volume 7.5 FL (6.5-10.1) Neutrophils (%) (Auto) % (45.0-75.0) Lymphocytes (%) (Auto) % (20.0-45.0) Monocytes (%) (Auto) % (1.0-10.0) Eosinophils (%) (Auto) % (0.0-3.0) Basophils (%) (Auto) % (0.0-2.0) Differential Total Cells Counted 100 Neutrophils % (Manual) 81 % (45-75) H Lymphocytes % (Manual) 10 % (20-45) L Monocytes % (Manual) 9 % (1-10) Eosinophils % (Manual) 0 % (0-3) Basophils % (Manual) 0 % (0-2) Band Neutrophils 0 % (0-8) Platelet Estimate Adequate Platelet Morphology Normal Red Blood Cell Morphology Normal Sodium Level 130 MMOL/L (136-145) L Potassium Level 4.1 MMOL/L (3.5-5.1) Chloride Level 94 MMOL/L (98-107) L Carbon Dioxide Level 30 MMOL/L (21-32) Anion Gap 7 mmol/L (5-15) Blood Urea Nitrogen 25 mg/dL (7-18) H Creatinine 1.0 MG/DL (0.55-1.30) Estimat Glomerular Filtration Rate > 60 mL/min (>60) Glucose Level 333 MG/DL (74-106) #H Calcium Level 8.4 MG/DL (8.5-10.1) L Phosphorus Level 3.6 MG/DL (2.5-4.9) Magnesium Level 2.5 MG/DL (1.8-2.4) H Total Bilirubin 0.5 MG/DL (0.2-1.0) Aspartate Amino Transf (AST/SGOT) 19 U/L (15-37) Alanine Aminotransferase (ALT/SGPT) 77 U/L (12-78) Alkaline Phosphatase 55 U/L (46-116) Total Protein 6.7 G/DL (6.4-8.2) Albumin 3.3 G/DL (3.4-5.0) L Globulin 3.4 g/dL Albumin/Globulin Ratio 1.0 (1.0-2.7) Arterial Blood pH 7.415 (7.350-7.450) Arterial Blood Partial Pressure CO2 46.1 mmHg (35.0-45.0) H Arterial Blood Partial Pressure O2 70.8 mmHg (75.0-100.0) L Arterial Blood HCO3 28.9 mmol/L (22.0-26.0) H Arterial Blood Oxygen Saturation 93.6 % (92.0-98.0) Arterial Blood Base Excess 3.6 Alin Test Positive Intake and Output 02/01/18 02/02/18 18:59 06:59 Intake Total 305 ml 1255.8 ml Output Total 1780 ml 300 ml Balance -1475 ml 955.8 ml IV Total 305 ml 1255.8 ml Output Urine Total 1780 ml 300 ml # Bowel Movements 1 Objective General Appearance: WD/WN, moderate distress EENT: PERRL/EOMI, normal ENT inspection Neck: non-tender, normal alignment, supple Cardiovascular: normal peripheral pulses, normal rate, regular rhythm, no gallop/murmur, no JVD Respiratory/Chest: Nasal canula; respiratory distress, crackles/rales, rhonchi - bilaterally, expiratory wheezing Abdomen: normal bowel sounds, non tender, soft, no organomegaly, no mass 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 Continue zosyn and cefazolin-see pulmonary note. (2) Leukocytosis (3) Asthma (4) Abdominal pain (5) Respiratory distress (6) Acute respiratory failure Assessment & Plan: Extubated 01/31/18 see pulmonay note Status: progressing, tolerating diet Assessment/Plan Tolerating full liquid diet; advance diet APRIL HEATH Feb 02, 2018 18:23
[2018-02-02 20:00] VITALS: BP 139/84
[2018-02-02] MEDS ORDERED: Dyna-Hex 2% Top Sol 2oz TOPIC SCH (20:00)
[2018-02-02] MEDS: Solu-MEDROL 125mg Inj IV SCH (21:15)
[2018-02-03] VITALS: BP 147/88
[2018-02-03] MEDS: Albuterol ud Inhalation HHN SCH ×4 (00:32→19:04)
[2018-02-03 04:00] VITALS: BP 134/68
[2018-02-03] MEDS: ceFAZolin sod 1 GM in NS 55 ML IVPB SCH (04:01)
[2018-02-03 05:03] LABS: MEAN CORPUSCULAR VOLUME 88 FL (80-99); PLATELET COUNT 207 K/UL (150-450); RED BLOOD COUNT 4.55 M/UL (4.70-6.10); RED CELL DISTRIBUTION WIDTH 11.7 % (11.6-14.8); WHITE BLOOD COUNT 12.6 K/UL (4.8-10.8)
[2018-02-03 05:40] LABS: ALANINE AMINOTRANSFERASE 53 U/L (12-78); ALBUMIN 2.8 G/DL (3.4-5.0); ALKALINE PHOSPHATASE 48 U/L (46-116); ANION GAP 6 mmol/L (5-15); ASPARTATE AMINO TRANSFERASE 16 U/L (15-37); BILIRUBIN,TOTAL 0.5 MG/DL (0.2-1.0); BLOOD UREA NITROGEN 25 mg/dL (7-18); CALCIUM 7.3 MG/DL (8.5-10.1); CARBON DIOXIDE 27 MMOL/L (21-32); CHLORIDE 103 MMOL/L (98-107); CREATININE 0.8 MG/DL (0.55-1.30); POTASSIUM 3.7 MMOL/L (3.5-5.1); SODIUM 136 MMOL/L (136-145)
[2018-02-03] MEDS: NovoLOG Insulin Flexpen SUBQ SCH ×4 (06:28→21:35)
[2018-02-03 08:00] VITALS: BP 146/86
[2018-02-03] MEDS: Pantoprazole Inj IV SCH (08:50)
[2018-02-03] MEDS: Solu-MEDROL 125mg Inj IV SCH ×2 (08:51→21:33)
[2018-02-03] MEDS: Heparin 5000 units/ml inj SUBQ SCH ×2 (08:52→21:34)
--- NOTE | 2018-02-03 11:01 | Pulmonology Progress Note ---
Assessment/Plan Problems: (1) Acute respiratory failure (2) Acute encephalopathy (3) Acute asthma exacerbation Assessment/Plan respiratory treatment titrate fio2 to sat of 92 check sputum, staph aureus pt ot advance diet transfer to med/surg taper down sterids slowly to q daily now dvt prophylaxis all notes reviewed. Subjective ROS Limited/Unobtainable: No Constitutional: Reports: no symptoms HEENT: Repors: no symptoms Allergies: Coded Allergies: No Known Allergies (Unverified , 01/28/18) Objective Last 24 Hour Vital Signs Date Time Temp Pulse Resp B/P (MAP) Pulse Ox O2 Delivery O2 Flow Rate FiO2 02/03/18 08:00 98.1 88 20 146/86 97 Nasal Cannula 2.0 98.1 02/03/18 07:41 77 02/03/18 07:28 86 16 98 Nasal Cannula 2.0 28 02/03/18 07:18 82 16 93 Nasal Cannula 2.0 28 02/03/18 07:16 93 Nasal Cannula 2.0 28 02/03/18 07:15 Nasal Cannula 2.0 28 02/03/18 04:00 81 02/03/18 04:00 97.7 85 20 134/68 96 Nasal Cannula 2.0 97.7 02/03/18 00:44 84 18 98 Nasal Cannula 2.0 28 02/03/18 00:33 83 18 95 Nasal Cannula 2.0 28 02/03/18 00:00 97.9 90 20 147/88 95 Nasal Cannula 2.0 97.9 02/03/18 00:00 83 02/02/18 20:00 87 02/02/18 20:00 98.0 85 20 139/84 98 Nasal Cannula 2.0 98.0 02/02/18 19:40 83 18 98 Nasal Cannula 2.0 28 02/02/18 19:39 Nasal Cannula 2.0 28 02/02/18 19:39 97 Nasal Cannula 2.0 28 02/02/18 19:30 81 20 97 Nasal Cannula 2.0 28 02/02/18 16:00 97.6 84 20 133/77 99 Nasal Cannula 2.0 97.6 02/02/18 16:00 81 02/02/18 13:19 92 20 100 Nasal Cannula 2.0 28 02/02/18 13:10 87 20 Nasal Cannula 2.0 28 02/02/18 12:00 86 02/02/18 12:00 97.9 88 21 139/86 96 Nasal Cannula 2.0 97.9 Intake and Output 02/02/18 02/03/18 19:00 07:00 Intake Total 255 ml 310 ml Output Total 350 ml 1275 ml Balance -95 ml -965 ml IV Total 255 ml 310 ml Output Urine Total 350 ml 1275 ml # Voids 2 3 # Bowel Movements 1 1 General Appearance: WD/WN HEENT: normocephalic, atraumatic Respiratory/Chest: chest wall non-tender, lungs clear, normal breath sounds Cardiovascular: normal peripheral pulses, normal rate Abdomen: normal bowel sounds, soft, non tender Genitourinary: normal external genitalia Skin: no rash, no ulcers Neurologic/Psychiatric: ham sawyer II-XII grossly normal Lymphatic: no neck adenopathy Laboratory Tests 02/03/18 04:00: White Blood Count 12.6H, Red Blood Count 4.55L, Hemoglobin 14.0L, Hematocrit 40.0L, Mean Corpuscular Volume 88, Mean Corpuscular Hemoglobin 30.8, Mean Corpuscular Hemoglobin Concent 35.0, Red Cell Distribution Width 11.7, Platelet Count 207, Mean Platelet Volume 7.7, Neutrophils (%) (Auto) , Lymphocytes (%) ( Auto) , Monocytes (%) (Auto) , Eosinophils (%) (Auto) , Basophils (%) (Auto) , Sodium Level 136, Potassium Level 3.7, Chloride Level 103, Carbon Dioxide Level 27, Anion Gap 6, Blood Urea Nitrogen 25H, Creatinine 0.8, Estimat Glomerular Filtration Rate > 60, Glucose Level 123#H, Calcium Level 7.3L, Total Bilirubin 0.5, Aspartate Amino Transf (AST/SGOT) 16, Alanine Aminotransferase (ALT/SGPT) 53, Alkaline Phosphatase 48, Pro-B-Type Natriuretic Peptide 119, Total Protein 5.7L, Albumin 2.8L, Globulin 2.9, Albumin/Globulin Ratio 1.0 Current Medications Medications (Trade) Dose Ordered Sig/Shereen Route PRN Reason Start Time Stop Time Status Last Admin Dose Admin Albuterol Sulfate (Proventil) 2.5 mg Q6HRT HHN 02/02/18 13:45 02/07/18 13:44 02/03/18 07:17 Cefazolin Sodium 1 gm/Sodium Chloride 55 ml @ 110 mls/hr Q8H IVPB 02/02/18 12:00 02/07/18 11:59 02/03/18 04:01 Chlorhexidine Gluconate (Dari-Hex 2%) 1 applic DAILY@2000 TOPIC 02/02/18 20:00 02/28/18 19:59 02/02/18 21:14 Dextrose (Dextrose 50%) 25 ml STAT PRN IV Hypoglycemia 02/02/18 04:02 02/27/18 04:01 Haloperidol Lactate 5 mg/ Dextrose 56 ml @ 224 mls/hr Q1H PRN IVPB AGITATION 02/02/18 04:00 03/04/18 03:59 Heparin Sodium (Porcine) (Heparin 5000 units/ml) 5,000 units EVERY 12 HOURS SUBQ 02/02/18 09:00 02/27/18 20:59 02/03/18 08:52 Insulin Aspart (NovoLOG) BEFORE MEALS AND HS SUBQ 02/02/18 06:30 02/27/18 11:29 02/03/18 06:28 Lorazepam (Ativan 2mg/ml 1ml) 2 mg Q4H PRN IV For Anxiety 02/02/18 05:00 02/04/18 04:59 Methylprednisolone Sodium Succinate (Solu-MEDROL) 60 mg EVERY 12 HOURS IV 02/02/18 21:00 02/27/18 11:59 02/03/18 08:51 Metronidazole 100 ml @ 100 mls/hr Q8H IVPB 02/02/18 04:30 02/07/18 23:59 02/03/18 04:16 Morphine Sulfate (Morphine Sulfate) 2 mg Q4H PRN IVP Moderate Pain (Pain Scale 4-6) 02/02/18 05:00 02/04/18 04:59 Morphine Sulfate (Morphine Sulfate) 4 mg Q4H PRN IVP Severe Pain (Pain Scale 7-10) 02/02/18 05:00 02/04/18 04:59 Nitroglycerin (Ntg) 0.4 mg Q5M X 3 DOSES PRN SL Prn Chest Pain 02/02/18 03:15 02/27/18 10:59 Ondansetron HCl (Zofran) 4 mg Q6H PRN IVP Nausea & Vomiting 02/02/18 04:09 02/27/18 04:08 Pantoprazole (Protonix) 40 mg DAILY IV 02/02/18 09:00 02/28/18 08:59 02/03/18 08:50 Ahsan Wu MD Feb 03, 2018 11:01
[2018-02-03 12:00] VITALS: BP 120/64
[2018-02-03] MEDS ORDERED: Nitroglycerin Subl 0.4mg tab SL PRN (12:45)
[2018-02-03] MEDS ORDERED: LORazepam Inj 2mg/ml 1ml IV PRN (13:00)
[2018-02-03] MEDS ORDERED: Haloperidol Lactate 5 MG in D5W 55 ML IVPB PRN (13:00)
[2018-02-03] MEDS ORDERED: Morphine Sulfate 4mg/ml Inj IVP PRN (13:00)
--- NOTE | 2018-02-03 13:01 | Infectious Diseases Prog Note ---
Assessment/Plan Assessment/Plan ASSESSMENT: The patient is a 62-year-old male with: Probable aspiration pneumonia. Scx: MSSA 01/31 SCx: Bibasilar atelectasis and possible consolidation, new/increased since previous day's exam Asthma. Leukocytosis, mild ( on steroids ) IMPROVING Ventilator-dependent respiratory failure., Extub 01/31 Asthma. PLAN: on IV Ancef d# , Flagyl d# / ( Aspiration ) , upon DC will change to Keflex to complete the course 01/31 SP Zosyn day # 3 Monitor CBC and BMP Monitor chest x-ray. Subjective Allergies: Coded Allergies: No Known Allergies (Unverified , 01/28/18) Subjective comfortable , occasional cough Objective Vital Signs Last 24 Hour Vital Signs Date Time Temp Pulse Resp B/P (MAP) Pulse Ox O2 Delivery O2 Flow Rate FiO2 02/03/18 12:00 98.6 80 20 120/64 97 Room Air 98.6 02/03/18 08:00 98.1 88 20 146/86 97 Nasal Cannula 2.0 98.1 02/03/18 07:41 77 02/03/18 07:28 86 16 98 Nasal Cannula 2.0 28 02/03/18 07:18 82 16 93 Nasal Cannula 2.0 28 02/03/18 07:16 93 Nasal Cannula 2.0 28 02/03/18 07:15 Nasal Cannula 2.0 28 02/03/18 04:00 81 02/03/18 04:00 97.7 85 20 134/68 96 Nasal Cannula 2.0 97.7 02/03/18 00:44 84 18 98 Nasal Cannula 2.0 28 02/03/18 00:33 83 18 95 Nasal Cannula 2.0 28 02/03/18 00:00 97.9 90 20 147/88 95 Nasal Cannula 2.0 97.9 02/03/18 00:00 83 02/02/18 20:00 87 02/02/18 20:00 98.0 85 20 139/84 98 Nasal Cannula 2.0 98.0 02/02/18 19:40 83 18 98 Nasal Cannula 2.0 28 02/02/18 19:39 Nasal Cannula 2.0 28 02/02/18 19:39 97 Nasal Cannula 2.0 28 02/02/18 19:30 81 20 97 Nasal Cannula 2.0 28 02/02/18 16:00 97.6 84 20 133/77 99 Nasal Cannula 2.0 97.6 02/02/18 16:00 81 02/02/18 13:19 92 20 100 Nasal Cannula 2.0 28 02/02/18 13:10 87 20 Nasal Cannula 2.0 28 Height (Feet): 5 Height (Inches): 11.00 Weight (Pounds): 216 HEENT: anicteric Respiratory/Chest: no respiratory distress Cardiovascular: regular rhythm Abdomen: no organomegaly Laboratory Tests Test 02/03/18 04:00 White Blood Count 12.6 K/UL (4.8-10.8) H Red Blood Count 4.55 M/UL (4.70-6.10) L Hemoglobin 14.0 G/DL (14.2-18.0) L Hematocrit 40.0 % (42.0-52.0) L Mean Corpuscular Volume 88 FL (80-99) Mean Corpuscular Hemoglobin 30.8 PG (27.0-31.0) Mean Corpuscular Hemoglobin Concent 35.0 G/DL (32.0-36.0) Red Cell Distribution Width 11.7 % (11.6-14.8) Platelet Count 207 K/UL (150-450) Mean Platelet Volume 7.7 FL (6.5-10.1) Neutrophils (%) (Auto) % (45.0-75.0) Lymphocytes (%) (Auto) % (20.0-45.0) Monocytes (%) (Auto) % (1.0-10.0) Eosinophils (%) (Auto) % (0.0-3.0) Basophils (%) (Auto) % (0.0-2.0) Sodium Level 136 MMOL/L (136-145) Potassium Level 3.7 MMOL/L (3.5-5.1) Chloride Level 103 MMOL/L (98-107) Carbon Dioxide Level 27 MMOL/L (21-32) Anion Gap 6 mmol/L (5-15) Blood Urea Nitrogen 25 mg/dL (7-18) H Creatinine 0.8 MG/DL (0.55-1.30) Estimat Glomerular Filtration Rate > 60 mL/min (>60) Glucose Level 123 MG/DL (74-106) #H Calcium Level 7.3 MG/DL (8.5-10.1) L Total Bilirubin 0.5 MG/DL (0.2-1.0) Aspartate Amino Transf (AST/SGOT) 16 U/L (15-37) Alanine Aminotransferase (ALT/SGPT) 53 U/L (12-78) Alkaline Phosphatase 48 U/L (46-116) Pro-B-Type Natriuretic Peptide 119 pg/mL (0-125) Total Protein 5.7 G/DL (6.4-8.2) L Albumin 2.8 G/DL (3.4-5.0) L Globulin 2.9 g/dL Albumin/Globulin Ratio 1.0 (1.0-2.7) Current Medications Medications (Trade) Dose Ordered Sig/Shereen Route PRN Reason Start Time Stop Time Status Last Admin Dose Admin Albuterol Sulfate (Proventil) 2.5 mg Q6HRT HHN 02/03/18 13:00 02/07/18 13:44 Chlorhexidine Gluconate (Dari-Hex 2%) 1 applic DAILY@2000 TOPIC 02/03/18 20:00 02/28/18 19:59 Dextrose (Dextrose 50%) 25 ml STAT PRN IV Hypoglycemia 02/03/18 13:00 03/05/18 12:59 Heparin Sodium (Porcine) (Heparin 5000 units/ml) 5,000 units EVERY 12 HOURS SUBQ 02/03/18 21:00 02/27/18 20:59 Insulin Aspart (NovoLOG) BEFORE MEALS AND HS SUBQ 02/03/18 16:30 02/27/18 11:29 Lorazepam (Ativan 2mg/ml 1ml) 2 mg Q4H PRN IV For Anxiety 02/03/18 13:00 02/04/18 04:59 Methylprednisolone Sodium Succinate (Solu-MEDROL) 60 mg EVERY 12 HOURS IV 02/03/18 21:00 02/27/18 11:59 Metronidazole 100 ml @ 100 mls/hr EVERY 12 HOURS IVPB 02/03/18 21:00 02/07/18 23:59 Morphine Sulfate (Morphine Sulfate) 2 mg Q4H PRN IVP Moderate Pain (Pain Scale 4-6) 02/03/18 13:00 02/04/18 04:59 Nitroglycerin (Ntg) 0.4 mg Q5M X 3 DOSES PRN SL Prn Chest Pain 02/03/18 12:45 02/27/18 10:59 Ondansetron HCl (Zofran) 4 mg Q6H PRN IVP Nausea & Vomiting 02/03/18 13:00 03/05/18 12:59 Mike Domingo MD Feb 03, 2018 13:01
[2018-02-03] MEDS: ceFAZolin sod 1 GM in D5W 55 ML IVPB SCH ×2 (15:25→21:32)
[2018-02-03 16:00] VITALS: BP 142/85
[2018-02-03] MEDS ORDERED: Tubing IV Secondary IV ONE (18:12)
--- NOTE | 2018-02-03 18:14 | Internal Med Progress Note ---
Subjective Date of Service: Feb 03, 2018 Physician Name April Heath Attending Physician Fam Joe MD Current Medications Medications (Trade) Dose Ordered Sig/Shereen Route PRN Reason Start Time Stop Time Status Last Admin Dose Admin Albuterol Sulfate (Proventil) 2.5 mg Q6HRT HHN 02/03/18 13:00 02/07/18 13:44 02/03/18 14:06 Cefazolin Sodium 1 gm/Dextrose 55 ml @ 110 mls/hr Q8HR IVPB 02/03/18 14:00 02/10/18 13:59 02/03/18 15:25 Chlorhexidine Gluconate (Dari-Hex 2%) 1 applic DAILY@2000 TOPIC 02/03/18 20:00 02/28/18 19:59 Dextrose (Dextrose 50%) 25 ml STAT PRN IV Hypoglycemia 02/03/18 13:00 03/05/18 12:59 Heparin Sodium (Porcine) (Heparin 5000 units/ml) 5,000 units EVERY 12 HOURS SUBQ 02/03/18 21:00 02/27/18 20:59 Insulin Aspart (NovoLOG) BEFORE MEALS AND HS SUBQ 02/03/18 16:30 02/27/18 11:29 02/03/18 17:25 Lorazepam (Ativan 2mg/ml 1ml) 2 mg Q4H PRN IV For Anxiety 02/03/18 13:00 02/04/18 04:59 Methylprednisolone Sodium Succinate (Solu-MEDROL) 60 mg EVERY 12 HOURS IV 02/03/18 21:00 02/27/18 11:59 Metronidazole 100 ml @ 100 mls/hr EVERY 12 HOURS IVPB 02/03/18 21:00 02/07/18 23:59 Morphine Sulfate (Morphine Sulfate) 2 mg Q4H PRN IVP Moderate Pain (Pain Scale 4-6) 02/03/18 13:00 02/04/18 04:59 Nitroglycerin (Ntg) 0.4 mg Q5M X 3 DOSES PRN SL Prn Chest Pain 02/03/18 12:45 02/27/18 10:59 Ondansetron HCl (Zofran) 4 mg Q6H PRN IVP Nausea & Vomiting 02/03/18 13:00 03/05/18 12:59 Allergies: Coded Allergies: No Known Allergies (Unverified , 01/28/18) ROS Limited/Unobtainable: No Constitutional: Reports: no symptoms HEENT: Reports: no symptoms Cardiovascular: Reports: no symptoms Respiratory: Reports: shortness of breath Gastrointestinal/Abdominal: Reports: no symptoms Genitourinary: Reports: no symptoms Neurologic/Psychiatric: Reports: no symptoms Subjective 62 YO M admitted with Respiratory failure. Now pneumonia. Extubated 01/31/18. Cover for Int Eric-Dr Joe. Objective Last Vital Signs Date Time Temp Pulse Resp B/P (MAP) Pulse Ox O2 Delivery O2 Flow Rate FiO2 02/03/18 16:00 97.6 91 22 142/85 97 Nasal Cannula 2.0 97.6 91 91 02/03/18 14:17 28 Laboratory Tests Test 02/03/18 04:00 White Blood Count 12.6 K/UL (4.8-10.8) H Red Blood Count 4.55 M/UL (4.70-6.10) L Hemoglobin 14.0 G/DL (14.2-18.0) L Hematocrit 40.0 % (42.0-52.0) L Mean Corpuscular Volume 88 FL (80-99) Mean Corpuscular Hemoglobin 30.8 PG (27.0-31.0) Mean Corpuscular Hemoglobin Concent 35.0 G/DL (32.0-36.0) Red Cell Distribution Width 11.7 % (11.6-14.8) Platelet Count 207 K/UL (150-450) Mean Platelet Volume 7.7 FL (6.5-10.1) Neutrophils (%) (Auto) % (45.0-75.0) Lymphocytes (%) (Auto) % (20.0-45.0) Monocytes (%) (Auto) % (1.0-10.0) Eosinophils (%) (Auto) % (0.0-3.0) Basophils (%) (Auto) % (0.0-2.0) Sodium Level 136 MMOL/L (136-145) Potassium Level 3.7 MMOL/L (3.5-5.1) Chloride Level 103 MMOL/L (98-107) Carbon Dioxide Level 27 MMOL/L (21-32) Anion Gap 6 mmol/L (5-15) Blood Urea Nitrogen 25 mg/dL (7-18) H Creatinine 0.8 MG/DL (0.55-1.30) Estimat Glomerular Filtration Rate > 60 mL/min (>60) Glucose Level 123 MG/DL (74-106) #H Calcium Level 7.3 MG/DL (8.5-10.1) L Total Bilirubin 0.5 MG/DL (0.2-1.0) Aspartate Amino Transf (AST/SGOT) 16 U/L (15-37) Alanine Aminotransferase (ALT/SGPT) 53 U/L (12-78) Alkaline Phosphatase 48 U/L (46-116) Pro-B-Type Natriuretic Peptide 119 pg/mL (0-125) Total Protein 5.7 G/DL (6.4-8.2) L Albumin 2.8 G/DL (3.4-5.0) L Globulin 2.9 g/dL Albumin/Globulin Ratio 1.0 (1.0-2.7) Intake and Output 02/02/18 02/03/18 19:00 07:00 Intake Total 255 ml 310 ml Output Total 350 ml 1275 ml Balance -95 ml -965 ml IV Total 255 ml 310 ml Output Urine Total 350 ml 1275 ml # Voids 2 3 # Bowel Movements 1 1 Objective General Appearance: WD/WN, moderate distress EENT: PERRL/EOMI, normal ENT inspection Neck: non-tender, normal alignment, supple Cardiovascular: normal peripheral pulses, normal rate, regular rhythm, no gallop/murmur, no JVD Respiratory/Chest: Nasal canula; respiratory distress, crackles/rales, rhonchi - bilaterally, expiratory wheezing Abdomen: normal bowel sounds, non tender, soft, no organomegaly, no mass Neurologic: propagation manager II-XII grossly normal Skin: normal pigmentation, warm/dry Assessment/Plan Problem List: (1) Pneumonia Assessment & Plan: Staph aureus. Continue zosyn and cefazolin-see pulmonary note. (2) Leukocytosis (3) Asthma (4) Abdominal pain (5) Respiratory distress (6) Acute respiratory failure Assessment & Plan: Extubated 01/31/18 see pulmonay note Status: progressing HEATHAPRIL James Feb 03, 2018 18:14
[2018-02-03 20:00] VITALS: BP 117/67
[2018-02-03] MEDS ORDERED: Dyna-Hex 2% Top Sol 2oz TOPIC SCH (20:00)
[2018-02-04] VITALS: BP 149/83
[2018-02-04] MEDS: Albuterol ud Inhalation HHN SCH ×4 (01:21→20:37)
[2018-02-04 04:00] VITALS: BP 143/87
[2018-02-04 04:59] LABS: HEMATOCRIT 46.1 % (42.0-52.0); HEMOGLOBIN 16.2 G/DL (14.2-18.0); MEAN CORPUSCULAR VOLUME 89 FL (80-99); PLATELET COUNT 219 K/UL (150-450); RED BLOOD COUNT 5.19 M/UL (4.70-6.10); WHITE BLOOD COUNT 16.2 K/UL (4.8-10.8)
[2018-02-04 05:14] LABS: ANION GAP 7 mmol/L (5-15); BLOOD UREA NITROGEN 32 mg/dL (7-18); CALCIUM 8.9 MG/DL (8.5-10.1); CARBON DIOXIDE 27 MMOL/L (21-32); CHLORIDE 96 MMOL/L (98-107); CREATININE 1.2 MG/DL (0.55-1.30); POTASSIUM 4.6 MMOL/L (3.5-5.1); SODIUM 130 MMOL/L (136-145)
[2018-02-04] MEDS: ceFAZolin sod 1 GM in D5W 55 ML IVPB SCH ×2 (05:21→14:54)
[2018-02-04] MEDS: NovoLOG Insulin Flexpen SUBQ SCH ×3 (06:07→16:44)
[2018-02-04 08:00] VITALS: BP 115/77
[2018-02-04] MEDS: Solu-MEDROL 125mg Inj IV SCH (08:09)
[2018-02-04] MEDS: Heparin 5000 units/ml inj SUBQ SCH (08:11)
--- NOTE | 2018-02-04 10:43 | Infectious Diseases Prog Note ---
Assessment/Plan Assessment/Plan ASSESSMENT: The patient is a 62-year-old male with: Probable aspiration pneumonia. Scx: MSSA( ? significance ) 01/31 SCx: Bibasilar atelectasis and possible consolidation, new/increased since previous day's exam Asthma. Leukocytosis, increasing ( on steroids ) Ventilator-dependent respiratory failure., Extub 01/31 Asthma. PLAN: on IV Ancef d# 5/ , dc Flagyl d# 5 / ( Aspiration ) , upon DC will change to Keflex to complete the course 01/31 SP Zosyn day # 3 Monitor CBC and BMP Monitor chest x-ray. Subjective Allergies: Coded Allergies: No Known Allergies (Unverified , 01/28/18) Subjective afebrile , occasional cough Objective Vital Signs Last 24 Hour Vital Signs Date Time Temp Pulse Resp B/P (MAP) Pulse Ox O2 Delivery O2 Flow Rate FiO2 02/04/18 08:00 98.0 96 18 115/77 93 Nasal Cannula 98.0 02/04/18 07:40 83 18 98 Nasal Cannula 2.0 28 02/04/18 07:31 97 Nasal Cannula 2.0 28 02/04/18 07:31 Nasal Cannula 2.0 28 02/04/18 07:31 86 16 97 Nasal Cannula 2.0 28 02/04/18 04:00 Nasal Cannula 2.0 02/04/18 04:00 97.4 90 18 143/87 95 Nasal Cannula 97.4 02/04/18 01:36 87 18 98 Nasal Cannula 2.0 28 02/04/18 01:22 85 18 94 Nasal Cannula 2.0 28 02/04/18 00:00 98.1 85 18 149/83 95 Nasal Cannula 98.1 02/04/18 00:00 Nasal Cannula 2.0 02/03/18 20:00 Nasal Cannula 2.0 02/03/18 20:00 98.2 91 18 117/67 98 Nasal Cannula 98.2 02/03/18 19:16 88 18 98 Nasal Cannula 2.0 28 02/03/18 19:05 91 18 97 Nasal Cannula 2.0 28 02/03/18 19:05 97 Nasal Cannula 2.0 28 02/03/18 19:05 Nasal Cannula 2.0 28 02/03/18 16:00 97.6 91 22 142/85 97 Nasal Cannula 2.0 97.6 91 91 4/19/18 14:17 84 16 98 Nasal Cannula 2.0 28 02/03/18 14:04 78 16 94 Nasal Cannula 2.0 28 02/03/18 12:00 98.6 80 20 120/64 97 Room Air 98.6 02/03/18 11:32 96 Height (Feet): 5 Height (Inches): 11.00 Weight (Pounds): 211 HEENT: atraumatic Respiratory/Chest: no accessory muscle use Cardiovascular: regular rhythm Abdomen: no organomegaly Laboratory Tests Test 02/04/18 04:18 White Blood Count 16.2 K/UL (4.8-10.8) H Red Blood Count 5.19 M/UL (4.70-6.10) Hemoglobin 16.2 G/DL (14.2-18.0) Hematocrit 46.1 % (42.0-52.0) Mean Corpuscular Volume 89 FL (80-99) Mean Corpuscular Hemoglobin 31.2 PG (27.0-31.0) H Mean Corpuscular Hemoglobin Concent 35.1 G/DL (32.0-36.0) Red Cell Distribution Width 12.0 % (11.6-14.8) Platelet Count 219 K/UL (150-450) Mean Platelet Volume 8.1 FL (6.5-10.1) Neutrophils (%) (Auto) % (45.0-75.0) Lymphocytes (%) (Auto) % (20.0-45.0) Monocytes (%) (Auto) % (1.0-10.0) Eosinophils (%) (Auto) % (0.0-3.0) Basophils (%) (Auto) % (0.0-2.0) Differential Total Cells Counted 100 Neutrophils % (Manual) 82 % (45-75) H Lymphocytes % (Manual) 12 % (20-45) L Monocytes % (Manual) 6 % (1-10) Eosinophils % (Manual) 0 % (0-3) Basophils % (Manual) 0 % (0-2) Band Neutrophils 0 % (0-8) Platelet Estimate Adequate Platelet Morphology Normal Red Blood Cell Morphology Normal Sodium Level 130 MMOL/L (136-145) L Potassium Level 4.6 MMOL/L (3.5-5.1) Chloride Level 96 MMOL/L (98-107) L Carbon Dioxide Level 27 MMOL/L (21-32) Anion Gap 7 mmol/L (5-15) Blood Urea Nitrogen 32 mg/dL (7-18) H Creatinine 1.2 MG/DL (0.55-1.30) Estimat Glomerular Filtration Rate > 60 mL/min (>60) Glucose Level 195 MG/DL (74-106) H Calcium Level 8.9 MG/DL (8.5-10.1) # Current Medications Medications (Trade) Dose Ordered Sig/Shereen Route PRN Reason Start Time Stop Time Status Last Admin Dose Admin Acetaminophen (Tylenol) 650 mg Q6H PRN ORAL Mild Pain/Temp > 100.5 02/04/18 07:00 03/06/18 06:59 02/04/18 08:10 Albuterol Sulfate (Proventil) 2.5 mg Q6HRT HHN 02/03/18 13:00 02/07/18 13:44 02/04/18 07:31 Cefazolin Sodium 1 gm/Dextrose 55 ml @ 110 mls/hr Q8HR IVPB 02/03/18 14:00 02/10/18 13:59 02/04/18 05:21 Chlorhexidine Gluconate (Dari-Hex 2%) 1 applic DAILY@2000 TOPIC 02/03/18 20:00 02/28/18 19:59 02/03/18 21:33 Dextrose (Dextrose 50%) 25 ml STAT PRN IV Hypoglycemia 02/03/18 13:00 03/05/18 12:59 Heparin Sodium (Porcine) (Heparin 5000 units/ml) 5,000 units EVERY 12 HOURS SUBQ 02/03/18 21:00 02/27/18 20:59 02/04/18 08:11 Insulin Aspart (NovoLOG) BEFORE MEALS AND HS SUBQ 02/03/18 16:30 02/27/18 11:29 02/03/18 21:35 Methylprednisolone Sodium Succinate (Solu-MEDROL) 60 mg EVERY 12 HOURS IV 02/03/18 21:00 02/27/18 11:59 02/04/18 08:09 Metronidazole 100 ml @ 100 mls/hr EVERY 12 HOURS IVPB 02/03/18 21:00 02/07/18 23:59 02/04/18 08:09 Nitroglycerin (Ntg) 0.4 mg Q5M X 3 DOSES PRN SL Prn Chest Pain 02/03/18 12:45 02/27/18 10:59 Ondansetron HCl (Zofran) 4 mg Q6H PRN IVP Nausea & Vomiting 02/03/18 13:00 03/05/18 12:59 Mike Domingo MD Feb 04, 2018 10:43
[2018-02-04 12:00] VITALS: BP 108/76
--- NOTE | 2018-02-04 14:12 | Pulmonology Progress Note ---
Assessment/Plan Problems: (1) Acute respiratory failure (2) Acute encephalopathy (3) Acute asthma exacerbation Assessment/Plan respiratory treatment titrate fio2 to sat of 92 doing much better pt ot advance diet increased wbc secondary to steroids dvt prophylaxis all notes reviewed. Subjective ROS Limited/Unobtainable: No Constitutional: Reports: no symptoms HEENT: Repors: no symptoms Respiratory: Reports: no symptoms Allergies: Coded Allergies: No Known Allergies (Unverified , 01/28/18) Objective Last 24 Hour Vital Signs Date Time Temp Pulse Resp B/P (MAP) Pulse Ox O2 Delivery O2 Flow Rate FiO2 02/04/18 13:35 78 18 98 Nasal Cannula 2.0 28 02/04/18 13:25 81 16 96 Nasal Cannula 2.0 28 02/04/18 12:00 97.4 101 20 108/76 97 Nasal Cannula 97.4 02/04/18 08:00 98.0 96 18 115/77 93 Nasal Cannula 98.0 02/04/18 07:40 83 18 98 Nasal Cannula 2.0 28 02/04/18 07:31 97 Nasal Cannula 2.0 28 02/04/18 07:31 Nasal Cannula 2.0 28 02/04/18 07:31 86 16 97 Nasal Cannula 2.0 28 02/04/18 04:00 Nasal Cannula 2.0 02/04/18 04:00 97.4 90 18 143/87 95 Nasal Cannula 97.4 02/04/18 01:36 87 18 98 Nasal Cannula 2.0 28 02/04/18 01:22 85 18 94 Nasal Cannula 2.0 28 02/04/18 00:00 98.1 85 18 149/83 95 Nasal Cannula 98.1 02/04/18 00:00 Nasal Cannula 2.0 02/03/18 20:00 Nasal Cannula 2.0 02/03/18 20:00 98.2 91 18 117/67 98 Nasal Cannula 98.2 02/03/18 19:16 88 18 98 Nasal Cannula 2.0 28 02/03/18 19:05 91 18 97 Nasal Cannula 2.0 28 02/03/18 19:05 97 Nasal Cannula 2.0 28 02/03/18 19:05 Nasal Cannula 2.0 28 02/03/18 16:00 97.6 91 22 142/85 97 Nasal Cannula 2.0 97.6 91 91 02/03/18 14:17 84 16 98 Nasal Cannula 2.0 28 Intake and Output 02/03/18 02/04/18 19:00 07:00 Intake Total 1040 ml Balance 1040 ml Intake Oral 830 ml IV Total 210 ml # Voids 2 General Appearance: WD/WN HEENT: normocephalic, atraumatic Respiratory/Chest: chest wall non-tender, normal breath sounds Cardiovascular: normal peripheral pulses, normal rate Abdomen: normal bowel sounds, soft, non tender Extremities: no cyanosis, no clubbing Laboratory Tests 02/04/18 04:18: White Blood Count 16.2H, Red Blood Count 5.19, Hemoglobin 16.2, Hematocrit 46.1 , Mean Corpuscular Volume 89, Mean Corpuscular Hemoglobin 31.2H, Mean Corpuscular Hemoglobin Concent 35.1, Red Cell Distribution Width 12.0, Platelet Count 219, Mean Platelet Volume 8.1, Neutrophils (%) (Auto) , Lymphocytes (%) ( Auto) , Monocytes (%) (Auto) , Eosinophils (%) (Auto) , Basophils (%) (Auto) , Differential Total Cells Counted 100, Neutrophils % (Manual) 82H, Lymphocytes % (Manual) 12L, Monocytes % (Manual) 6, Eosinophils % (Manual) 0, Basophils % ( Manual) 0, Band Neutrophils 0, Platelet Estimate Adequate, Platelet Morphology Normal, Red Blood Cell Morphology Normal, Sodium Level 130L, Potassium Level 4.6 , Chloride Level 96L, Carbon Dioxide Level 27, Anion Gap 7, Blood Urea Nitrogen 32H, Creatinine 1.2, Estimat Glomerular Filtration Rate > 60, Glucose Level 195H , Calcium Level 8.9# Current Medications Medications (Trade) Dose Ordered Sig/Shereen Route PRN Reason Start Time Stop Time Status Last Admin Dose Admin Acetaminophen (Tylenol) 650 mg Q6H PRN ORAL Mild Pain/Temp > 100.5 02/04/18 07:00 03/06/18 06:59 02/04/18 08:10 Albuterol Sulfate (Proventil) 2.5 mg Q6HRT HHN 02/03/18 13:00 02/07/18 13:44 02/04/18 13:25 Cefazolin Sodium 1 gm/Dextrose 55 ml @ 110 mls/hr Q8HR IVPB 02/03/18 14:00 02/10/18 13:59 02/04/18 05:21 Chlorhexidine Gluconate (Dari-Hex 2%) 1 applic DAILY@1999 TOPIC 02/03/18 20:00 02/28/18 19:59 02/03/18 21:33 Dextrose (Dextrose 50%) 25 ml STAT PRN IV Hypoglycemia 02/03/18 13:00 03/05/18 12:59 Heparin Sodium (Porcine) (Heparin 5000 units/ml) 5,000 units EVERY 12 HOURS SUBQ 02/03/18 21:00 02/27/18 20:59 02/04/18 08:11 Insulin Aspart (NovoLOG) BEFORE MEALS AND HS SUBQ 02/03/18 16:30 02/27/18 11:29 02/03/18 21:35 Methylprednisolone Sodium Succinate (Solu-MEDROL) 60 mg EVERY 12 HOURS IV 02/03/18 21:00 02/27/18 11:59 02/04/18 08:09 Nitroglycerin (Ntg) 0.4 mg Q5M X 3 DOSES PRN SL Prn Chest Pain 02/03/18 12:45 02/27/18 10:59 Ondansetron HCl (Zofran) 4 mg Q6H PRN IVP Nausea & Vomiting 02/03/18 13:00 03/05/18 12:59 Ahsan Wu MD Feb 04, 2018 14:12
[2018-02-04] MEDS ORDERED: PREDNISONE20 MG ORAL ×2 (14:40→14:41)
[2018-02-04] MEDS ORDERED: PREDNISONE10 MG ORAL (14:42)
[2018-02-04] MEDS ORDERED: KEFLEX500 MG ORAL (14:44)
[2018-02-04 16:00] VITALS: BP 134/83
--- NOTE | 2018-02-04 18:06 | Internal Med Progress Note ---
Subjective Date of Service: Feb 04, 2018 Physician Name April Heath Attending Physician Fam Joe MD Current Medications Medications (Trade) Dose Ordered Sig/Shereen Route PRN Reason Start Time Stop Time Status Last Admin Dose Admin Acetaminophen (Tylenol) 650 mg Q6H PRN ORAL Mild Pain/Temp > 100.5 02/04/18 07:00 03/06/18 06:59 02/04/18 08:10 Albuterol Sulfate (Proventil) 2.5 mg Q6HRT HHN 02/03/18 13:00 02/07/18 13:44 02/04/18 13:25 Cefazolin Sodium 1 gm/Dextrose 55 ml @ 110 mls/hr Q8HR IVPB 02/03/18 14:00 02/10/18 13:59 02/04/18 14:54 Chlorhexidine Gluconate (Dari-Hex 2%) 1 applic DAILY@2000 TOPIC 02/03/18 20:00 02/28/18 19:59 02/03/18 21:33 Dextrose (Dextrose 50%) 25 ml STAT PRN IV Hypoglycemia 02/03/18 13:00 03/05/18 12:59 Heparin Sodium (Porcine) (Heparin 5000 units/ml) 5,000 units EVERY 12 HOURS SUBQ 02/03/18 21:00 02/27/18 20:59 02/04/18 08:11 Insulin Aspart (NovoLOG) BEFORE MEALS AND HS SUBQ 02/03/18 16:30 02/27/18 11:29 02/04/18 16:44 Methylprednisolone Sodium Succinate (Solu-MEDROL) 60 mg EVERY 12 HOURS IV 02/03/18 21:00 02/27/18 11:59 02/04/18 08:09 Nitroglycerin (Ntg) 0.4 mg Q5M X 3 DOSES PRN SL Prn Chest Pain 02/03/18 12:45 02/27/18 10:59 Ondansetron HCl (Zofran) 4 mg Q6H PRN IVP Nausea & Vomiting 02/03/18 13:00 03/05/18 12:59 Allergies: Coded Allergies: No Known Allergies (Unverified , 01/28/18) ROS Limited/Unobtainable: No Constitutional: Reports: no symptoms HEENT: Reports: no symptoms Cardiovascular: Reports: no symptoms Respiratory: Reports: cough, shortness of breath Gastrointestinal/Abdominal: Reports: no symptoms Genitourinary: Reports: no symptoms Neurologic/Psychiatric: Reports: no symptoms Subjective 62 YO M admitted with Respiratory failure. Now pneumonia. Extubated 01/31/18. Cover for Int Med-Dr Joe. Await discharge home Objective Last Vital Signs Date Time Temp Pulse Resp B/P (MAP) Pulse Ox O2 Delivery O2 Flow Rate FiO2 02/04/18 16:00 97.8 89 20 134/83 100 Nasal Cannula 2.0 97.8 02/04/18 13:35 28 Laboratory Tests Test 02/04/18 04:18 White Blood Count 16.2 K/UL (4.8-10.8) H Red Blood Count 5.19 M/UL (4.70-6.10) Hemoglobin 16.2 G/DL (14.2-18.0) Hematocrit 46.1 % (42.0-52.0) Mean Corpuscular Volume 89 FL (80-99) Mean Corpuscular Hemoglobin 31.2 PG (27.0-31.0) H Mean Corpuscular Hemoglobin Concent 35.1 G/DL (32.0-36.0) Red Cell Distribution Width 12.0 % (11.6-14.8) Platelet Count 219 K/UL (150-450) Mean Platelet Volume 8.1 FL (6.5-10.1) Neutrophils (%) (Auto) % (45.0-75.0) Lymphocytes (%) (Auto) % (20.0-45.0) Monocytes (%) (Auto) % (1.0-10.0) Eosinophils (%) (Auto) % (0.0-3.0) Basophils (%) (Auto) % (0.0-2.0) Differential Total Cells Counted 100 Neutrophils % (Manual) 82 % (45-75) H Lymphocytes % (Manual) 12 % (20-45) L Monocytes % (Manual) 6 % (1-10) Eosinophils % (Manual) 0 % (0-3) Basophils % (Manual) 0 % (0-2) Band Neutrophils 0 % (0-8) Platelet Estimate Adequate Platelet Morphology Normal Red Blood Cell Morphology Normal Sodium Level 130 MMOL/L (136-145) L Potassium Level 4.6 MMOL/L (3.5-5.1) Chloride Level 96 MMOL/L (98-107) L Carbon Dioxide Level 27 MMOL/L (21-32) Anion Gap 7 mmol/L (5-15) Blood Urea Nitrogen 32 mg/dL (7-18) H Creatinine 1.2 MG/DL (0.55-1.30) Estimat Glomerular Filtration Rate > 60 mL/min (>60) Glucose Level 195 MG/DL (74-106) H Calcium Level 8.9 MG/DL (8.5-10.1) # Intake and Output 02/03/18 02/04/18 19:00 07:00 Intake Total 1040 ml Balance 1040 ml Intake Oral 830 ml IV Total 210 ml # Voids 2 Objective General Appearance: WD/WN, moderate distress EENT: PERRL/EOMI, normal ENT inspection Neck: non-tender, normal alignment, supple Cardiovascular: normal peripheral pulses, normal rate, regular rhythm, no gallop/murmur, no JVD Respiratory/Chest: Nasal canula; respiratory distress, crackles/rales, rhonchi - bilaterally, expiratory wheezing Abdomen: normal bowel sounds, non tender, soft, no organomegaly, no mass Neurologic: speed belt sander tender II-XII grossly normal Skin: normal pigmentation, warm/dry Assessment/Plan Problem List: (1) Pneumonia Assessment & Plan: Staph aureus. Continue zosyn and cefazolin-see pulmonary note. (2) Leukocytosis (3) Asthma (4) Abdominal pain (5) Respiratory distress (6) Acute respiratory failure Assessment & Plan: Extubated 01/31/18 see pulmonay note Status: stable Assessment/Plan Discharge home today with home oxygen and keflex. APRIL HEATH Feb 04, 2018 18:06
[2018-02-04 20:00] VITALS: BP 148/83
[2018-02-04] MEDS ORDERED: NS 275ml ONE (21:14)
[2018-02-04] MEDS ORDERED: Tubing IV Secondary IV ONE ×3 (21:14)
--- NOTE | 2018-02-07 16:07 | Diagnostic Imaging Report ---
Indications: Dysphagia Technique: Patient ingested multiple substances under the supervision of speech pathology. Video fluoroscopic recording performed. Total fluoroscopy time and 69 seconds. Total dose area product [id number] mGycm2 Comparison: none Findings: Early pooling of thin liquid barium vallecula and piriform sinuses, trace supraglottic laryngeal penetration with sequential swallows. Early pooling of nectar thick liquid barium, honey thick liquid barium, barium puree, masticated solid, no aspiration or penetration demonstrated. Impression: Trace penetration of thin liquid barium. Negative for aspiration
--- NOTE | 2018-02-08 14:16 | Discharge Summary ---
Discharge Summary Discharge Summary Discharge Summary DATE OF ADMISSION: 01/28/2018 DATE OF DISCHARGE: 02/04/2018 CONSULTANTS: Dr. Ahsan Domingo BRIEF HOSPITAL COURSE: Patient is a 62-year-old -[place] male, presented with respiratory distress. Patient was complaining of knee pain secondary to a torn meniscus, and has been taking Naprosyn. He began to develop abdominal pain 2 days prior to admission, and had on and off diarrhea. On the evening of 01/27/2018, he went to the restroom and had trouble breathing. Patient's went to get his nebulizer machine. By the time the returned, the patient had fallen off the toilet and was unresponsive. EMS was then called. Upon arrival he had pulse however was unresponsive. He had reduced breath sounds. He was then taken to [facility] ED. On arrival to ED, due to patient's respiratory status and GCS he was immediately intubated. NG tube was placed in, deep suctioning was provided. He was placed on ventilator and was given nebulizer treatments. Blood work showed leukocytosis, WBC 15.4, lactic acid 4.6, troponin was negative. Chest x- ray showed atelectasis/effusion on the left lower lobe. Head CT showed no acute process. He was started on propofol drip for sedation. He was admitted to ICU for respiratory distress, hypercapnia and severe sepsis. He was placed initially on Zosyn. Sputum culture with MSSA. Zosyn was discontinued and was switched to Ancef, he was also given Flagyl for possible aspiration pneumonia. He was placed on Solu-Medrol 60 mg IV twice a day. He was eventually extubated on 01/31/2018. She had a PICC line inserted to the right arm on 02/01/2018. She underwent swallow evaluation. Video study study was negative for aspiration. She was placed on strict aspiration precautions. She was saturating well on nasal cannula. Diet was advanced. She was given PT and OT. She was eventually discharged home on home O2. FINAL DIAGNOSES: Acute respiratory failure requiring intubation, status post extubation Possible aspiration pneumonia with MSSA Leukocytosis Acute Asthma exacerbation Acute encephalopathy DISPOSITION: Patient was discharged home DISCHARGE MEDICATIONS: Refer to Discharge Medication List. Continue with Keflex 500 mg every 6 hours for 10 more days; continue with prednisone on tapering doses. DISCHARGE INSTRUCTIONS: Follow-up in a week I have been assigned to dictate discharge summary on this account, and I was not involved in the patient's management. Nancy Baez NP Feb 08, 2018 14:16
== END 2018-02-04 21:15 | disposition home or self-care (01) | DRG 137 ==
LOC: EDBD 00:26 → EMR 00:40 → EDBEDREQ 00:58 → ICU 01:37 → EDBEDREQ 05:33 → 2W 02-02 03:50 → 4E 02-03 13:15
PROC: 5A1945Z Respiratory Ventilation, 24-96 Consecutive Hours (ICD-10-PCS; principal; 2018-01-28)
PROC: 0BH17EZ Insertion of Endotracheal Airway into Trachea, Via Natural or Artificial Opening (ICD-10-PCS; 2018-01-28)
PROC: 02HV33Z Insertion of Infusion Device into Superior Vena Cava, Percutaneous Approach (ICD-10-PCS; 2018-02-01)
PROC: B548ZZA Ultrasonography of Superior Vena Cava, Guidance (ICD-10-PCS; 2018-02-01)
DX: J69.0 Pneumonitis due to inhalation of food and vomit (principal); J96.02 Acute respiratory failure with hypercapnia; G93.40 Encephalopathy, unspecified; R10.9 Unspecified abdominal pain; J45.901 Unspecified asthma with (acute) exacerbation
CPT/HCPCS: 36415; 36569; 36600; 70450; 71045; 74018; 74230; 76937; 80048; 80053; 80202; 80307; 81003; 82270; 82550; 82553; 82803; 82962; 83605; 83735; 83880; 84100; 84478; 84484; 85007; 85025; 85651; 86140; 87040; 87070; 87081; 87086; 87181; 87205; 93005; 94002; 94003; 94640; 94664; 94760; 99291; J1815